=== PATIENT | female | born 1965 | race Caucasian/White ===

== ENCOUNTER → 2020-10-16 09:52 | Outpatient (BNVA) | payer OTHER, SELFPAY | PROVIDERS: PCP Nurse Practitioner Family; Visit Provider Physician Assistant ==

== ENCOUNTER 2020-10-18 09:22 | Outpatient (REF) | payer OTHER, SELFPAY ==
[2020-10-18 10:22] LABS: MANUAL DIFF FLAG NO
[2020-10-18 10:31] LABS: Basophils Absolute Auto 0.1 X10*3/uL (0.0-0.2); Basophils Percent Auto 0.9 % (0-2); Eosinophils Absolute Auto 0.4 X10*3/uL (0.0-0.4); Eosinophils Percent Auto 6.2 % (0-4); Hematocrit 40.6 % (37-47); Hemoglobin 13.1 g/dl (12.0-16.0); Imm Gran Abs Auto 0.02 X10*3/uL (0.00-0.03); Imm Gran Pct Auto 0.4 % (0.0-0.4); Lymphocytes Absolute Auto 1.8 X10*3/uL (1.2-4.9); Lymphocytes Percent Auto 32.4 % (20-40); Mean Corpuscular HGB Conc 32.3 g/dl (31.0-35.0); Mean Corpuscular Hemoglobin 27.7 pg (27.0-33.0); Mean Corpuscular Volume 85.8 fL (80-98); Mean Platelet Volume 9.7 fL (9.4-12.3); Monocytes Absolute Auto 0.5 X10*3/uL (0.1-1.2); Monocytes Percent Auto 9.4 % (2-11); Neutrophils Absolute Auto 2.9 X10*3/uL (2.0-8.3); Neutrophils Percent Auto 50.7 % (45-73); Platelet Count 334 X10*3/uL (160-400); Red Blood Count 4.73 X10*6/uL (4.20-5.50); Red Cell Distribution Width 13.5 % (11.0-16.0); White Blood Count 5.7 X10*3/uL (4.8-10.8)
[2020-10-18 10:55] LABS: Alanine Aminotransferase 42 U/L (0-31); Albumin Level 3.7 g/dL (3.5-5.0); Alkaline Phosphatase 88 U/L (39-117); Anion Gap 12 (12-20); Aspartate Amino Transferase 40 U/L (5-31); Bilirubin Total 0.4 mg/dL (0.0-1.0); Blood Urea Nitrogen 16 mg/dL (9-16); Calcium 8.6 mg/dL (8.4-10.2); Carbon Dioxide 28 mmol/L (22-29); Chloride 103 mmol/L (96-108); Estimated Glomerular Filt Rate 53; Glucose Random 91 mg/dL (60-115); Potassium 4.2 mmol/L (3.3-5.1); Sodium 139 mmol/L (135-145); Total Protein 6.8 g/dL (6.5-8.0)
[2020-10-18 11:38] LABS: Erythrocyte Sedimentation Rate 26 MM/HR (0-20)
[2020-10-21 13:52] LABS: Transglutaminase IgA 1 U/mL
[2020-10-25 14:32] LABS: Endomysial IgA Antibody Negative (Negative)
== END 2020-10-18 09:23 | disposition home or self-care (01) ==
LOC: HO.LAB 09:22
PROVIDERS: PCP Internal Medicine; Visit Provider Physician Assistant
DX: R10.11 Right upper quadrant pain (principal); R74.01 Elevation of levels of liver transaminase levels; R19.7 Diarrhea, unspecified; K59.09 Other constipation
CPT/HCPCS: 36415; 80053; 83516; 84443; 85025; 85652; 86255; 86256

== ENCOUNTER 2020-10-28 09:04 | Outpatient (REF) | payer OTHER, SELFPAY ==
[2020-10-28 09:18] LABS: COVID-19 Test Negative (Negative)
== END 2020-10-28 09:05 | disposition home or self-care (01) ==
LOC: HO.EMPCOV 09:04
PROVIDERS: Visit Provider Internal Medicine
DX: Z20.822 Contact with and (suspected) exposure to COVID-19 (principal)
CPT/HCPCS: 36415; 87635; C9803

== ENCOUNTER 2020-11-18 09:59 | Day surgery (SDC) | payer OTHER, SELFPAY ==
[2020-11-12 20:04] VITALS: BMI 32.3
--- NOTE | 2020-11-18 10:26 | HO.ANESPROP2 ---
[facility] Active Problems Active Problems: All Active Problems (Updated 11/12/20 @ 20:03 by Paige Diaz RN) Pre-employment health screening examination (Acute) Diarrhea (Acute) Dysuria (Acute) History of colon polyps (Acute) Past Medical History Medical History Anxiety Asthma, allergic Borderline hypertension Depression Elevated cholesterol History of colon polyps PTSD (post-traumatic stress disorder) Surgical History Surgical History H/O: History of colonoscopy Hx laparoscopic cholecystectomy (~2005) Social History Social History Household Members: Spouse and Children Alcohol intake: never Smoking Status: Never smoker Second Hand Smoke Exposure: No Use of substances other than those prescribed or required for medical reasons: No Advance Directives: No Advance Directives Information Provided: No Advance Directives on File: No Recently lost weight without trying: No Current occupational status: employed and unemployed Current occupation: [employer] Meds Allergies Allergy/AdvReac Type Severity Reaction Status Date / Time ciprofloxacin [From CIPRO] Allergy Unknown RASH Verified 10/16/20 09:52 Sulfa (Sulfonamide Allergy Unknown RASH Verified 10/16/20 09:52 Antibiotics) [SULFA (SULFONAMIDE ANTIBIOTICS)] Home Medications Medication Instructions Recorded Confirmed Last Taken Type aripiprazole 10 mg tablet 10 mg PO DAILY 10/16/20 11/18/20 11/18/20 00:10 History 10 mg bupropion HCl 300 mg 24 hr tablet, 300 mg PO QAM 10/16/20 11/18/20 11/18/20 00:00 History extended release 300 mg fluticasone 100 mcg-salmeterol 50 1 inh INHALATION BID 10/16/20 11/18/20 11/18/20 00:05 History mcg/dose blistr powdr for 1 inhalation methylphenidate HCl 20 mg biphasic 20 mg PO DAILY 10/16/20 11/13/20 Unknown History 30-70 capsule,extended release venlafaxine 150 mg 150 mg PO DAILY 10/16/20 11/18/20 11/18/20 00:05 History capsule,extended release 24 hr 150 mg Exam Exam Date and Time: November 18, 2020 102 Height,Weight and Vital Signs: Height 5 ft 6 in Weight 90.718 kg Airway Mallampati Class: II TM Dist: >3cm Neck ROM: Full Loose/Missing/Broken Teeth: No Heart: RRR Other: CTA Assessment and Plan Assessment Anesthesia Assessment: Anesthesia Plan Discussed and Chart Reviewed Final Anesthetic Review NPO: Yes ASA Class: II Final Preanesthetic Review: Meds/Allgs Chart Reviewed and Consent Obtained/Reviewed Patient Risk: Low Procedure Risk: Low Anesthetic Plan Anesthetic Plan: MAC: Disposition: Standard PACU
[2020-11-18 10:35] VITALS: BP 129/73; PULSE 95; RESP 20; TEMP 36.2; O2SAT 97
--- NOTE | 2020-11-18 11:04 | W.PM.OPN ---
Operative Note Operative Note Date of Service: 11/22/20 Narrative: Pre-op diagnosis: Colon cancer screening, history of colon polyps, chronic diarrhea Post-op diagnosis: other (Colon polyps, diverticulosis, hemorrhoids) Procedure: COLONOSCOPY TO CECUM WITH BIOPSY AND SNARE POLYPECTOMY Consent: Indications for the procedure and potential complications of bleeding, perforation, reaction to medications and missed diagnosis were discussed with the patient and informed consent was obtained. Instrument: Olympus PCF H 190 L variable stiffness pediatric colonoscope Monitoring: Vital signs and clinical assessment, intermittent blood pressure monitoring, continuous EKG monitoring, Pulse oximetry and Carbon Dioxide monitoring were done throughout the procedure. Colon withdrawl time was 25 minutes. Procedure: The patient was placed in the left lateral decubitis position and pre-procedure medications were administered. After a digital rectal examination of the ano-rectum, the video colonoscope was inserted into the rectum and advanced through the colon to the cecum. The colonoscope was slowly withdrawn in a retrograde panoramic fashion and the colon mucosa was carefully examined including a retroflexed view of the rectum. Findings and interventions are described below. Procedure Difficulty: Without difficulty Findings: Terminal Ileum: The distal 5 cm was examined and appeared normal. Cecum: Normal Ascending Colon: Normal. Random biopsies were obtained from the right colon. Transverse Colon: Normal Descending Colon: Normal Sigmoid Colon: A 2-3 mm diminutive appearing polyp removed with a cold bx. A 10-12 mm sessile polyp removed with a hot snare. Random biopsies were obtained from the left colon. Moderate diverticulosis Rectum: Normal Ano-rectum: Moderate internal hemorrhoids Colon preparation: Excellent Impression and Post Procedure Diagnosis: Colonoscopy Findings: Two polyps removed. Random biopsies were obtained from the right and left colon. Moderate diverticulosis seen in the sigmoid colon Moderate hemorrhoids on retroflexed exam. Plan: Await pathology results Patient has an appointment on 11/25/20 in the GI Clinic with KATYA Hirsch . Repeat Colonoscopy interval based on path results - in 3-5 years if polyps are adenomatous and 10 years if polyps are hyperplastic. Above findings were reviewed with the patient and colon polyps and diverticulosis handouts were given in the discharge area Surgeon: Anthony Amador MD Anesthesia: MAC (Dr. Valentin) Estimated blood loss (mL): 0 Pathology: other (A- RANDOM RIGHT COLON BIOPSIES B- RANDOM LEFT COLON BIOPSIES C. SIGMOID POLYPS) Condition: stable Disposition: PACU
--- NOTE | 2020-11-18 11:04 | MHC.SHP ---
Pre-Procedural Eval Section A The patient is an INPATIENT: No The History & Physical has been completed within 30 days and I have reviewed it.: No Section B Chief Complaint: Hx of Colon Polyps Details of Present Illness: A 55-year-old female referred with diarrhea, intermittent. Patient states chronic common had severe she has had episodes of incontinence. She has been taking Imodium, however had diarrhea despite. She admits to stress-started a new job, she had been unemployed. She takes probiotics as well as fiber She had a colonoscopy 5 years ago- Relevant Family History (Specify if Yes): Yes Relevant Social History: None Present Medications: see Short Stay Collaborative assessment Medical History: Significant History (Anxiety, asthma, depression, history of colon polyps) History of Previous Operations: Relevant previous surgery/procedure and date(s) (Status post cholecystectomy, status post C section) Allergies: Allergies Allergy/AdvReac Type Severity Reaction Status Date / Time ciprofloxacin [From CIPRO] Allergy Unknown RASH Verified 10/16/20 09:52 Sulfa (Sulfonamide Allergy Unknown RASH Verified 10/16/20 09:52 Antibiotics) [SULFA (SULFONAMIDE ANTIBIOTICS)] Review of Systems Sugical H&P ROS: Negative: Cardiovascular, Respiratory and Neurological and Yes, Specify: Gastrointestinal (Chronic diarrhea) Exam Surgical H&P Exam: Normal: Heart, Normal: Lungs, Normal: Extremities and Normal: Abdomen Plan Diagnosis/Plan: Unchanged I have reviewed the history and physical and performed a pertinent physical examination on my patient. No changes have occurred unless specified.
[2020-11-18] MEDS: Lactated Ringers 1,000 ML 50 ML IV (11:05)
[2020-11-18 11:54] VITALS: BP 124/70; PULSE 84; RESP 18; TEMP 36.7; O2SAT 99
[2020-11-18 12:09] VITALS: PULSE 69; RESP 18; O2SAT 96
[2020-11-18 12:23] VITALS: BP 120/58; PULSE 74; RESP 18; TEMP 36.7; O2SAT 97
== END 2020-11-18 13:33 | disposition home or self-care (01) ==
PROVIDERS: PCP Internal Medicine; Visit Provider Internal Medicine Gastroenterology
PROC: 0DJD8ZZ Inspection of Lower Intestinal Tract, Via Natural or Artificial Opening Endoscopic (ICD-10-PCS; CPT 45378; principal; 2020-11-18 11:00)
DX: Z12.11 Encounter for screening for malignant neoplasm of colon (principal); Z86.010 Personal history of colon polyps; D12.5 Benign neoplasm of sigmoid colon; K52.831 Collagenous colitis; K57.30 Diverticulosis of large intestine without perforation or abscess without bleeding; K64.8 Other hemorrhoids; J45.909 Unspecified asthma, uncomplicated; R03.0 Elevated blood-pressure reading, without diagnosis of hypertension; F32.9 Major depressive disorder, single episode, unspecified; F43.10 Post-traumatic stress disorder, unspecified; Z79.51 Long term (current) use of inhaled steroids; Z79.899 Other long term (current) drug therapy; Z90.49 Acquired absence of other specified parts of digestive tract; Z88.1 Allergy status to other antibiotic agents; Z88.2 Allergy status to sulfonamides
CPT/HCPCS: 45385; 45380; 88305

== ENCOUNTER → 2020-11-25 08:40 | Outpatient (BNVA) | payer OTHER, SELFPAY | PROVIDERS: PCP Internal Medicine; Visit Provider Physician Assistant ==

== ENCOUNTER → 2021-01-22 07:52 | Outpatient (BNVA) | payer OTHER, SELFPAY | PROVIDERS: Visit Provider Physician Assistant ==

== ENCOUNTER 2021-07-15 15:59 | Outpatient (REF) | payer OTHER, SELFPAY ==
--- NOTE | ~2021-07-15 | MM_ITS ---
EXAMINATION: MM SCREENING DIGITAL BREAST TOMOSYNTHESIS, BILATERAL CLINICAL INFORMATION: Screening. Asymptomatic. The lifetime risk of breast cancer based on the Tyrer-Cuzick Model is 15%. COMPARISON: Mammography: April 22, 2017 and studies dating back to February 13, 2015 TECHNIQUE: Digital breast tomosynthesis is performed in both the craniocaudal and mediolateral oblique views along with computer-aided detection (CAD). Synthesized 2D images are generated from the tomosynthesis. FINDINGS: There are scattered areas of fibroglandular density (ACR BI-RADS breast composition Category b). There are no significant masses, abnormal calcifications, or other abnormalities. MM/MM tomosynthesis screening BI IMPRESSION: There are no significant changes from prior study. ASSESSMENT: BI-RADS 1: Negative RECOMMENDATION: Routine annual mammography screening. This patient's information was entered into a reminder system with a target due date for their next mammogram.
== END 2021-07-15 16:00 | disposition home or self-care (01) ==
LOC: HO.MAMMO 15:59
PROVIDERS: Visit Provider Internal Medicine
DX: Z12.31 Encounter for screening mammogram for malignant neoplasm of breast (principal)
CPT/HCPCS: 77063; 77067

== ENCOUNTER 2021-08-05 09:41 | Day surgery (SDC) | payer OTHER, SELFPAY ==
[2021-07-30 10:35] VITALS: BMI 32.3
--- NOTE | 2021-08-04 12:59 | P.CONAN_ITS ---
Documented by User: Anjali Márquez NP 08/04/21 13:00 HPI - Anesthesia Eval Consult details Narrative: 56yo F for Upper Endoscopy s/p colo with MAC 11/2020 [facility] Active Problems Active Problems: All Active Problems (Updated 07/30/21 @ 10:33 by Dina Frank RN) Pre-employment health screening examination (Acute) Diarrhea (Acute) Dysuria (Acute) Collagenous colitis (Acute) Tubular adenoma of colon (Acute) History of colon polyps (Acute) Past Medical History Medical History Anxiety Asthma, allergic Borderline hypertension Collagenous colitis Depression Elevated cholesterol History of colon polyps PTSD (post-traumatic stress disorder) Surgical History Surgical History H/O: History of colonoscopy Hx laparoscopic cholecystectomy (~2005) Social History Social History Household Members: Spouse and Children Household Members Other:: son 15 Alcohol intake: never Patient Tobacco Use Status: Never used Tobacco Second Hand Smoke Exposure: No Advance Directives: No Advance Directives Information Provided: Yes Advance Directives on File: No Current occupational status: employed and unemployed Current occupation: [employer] Meds Allergies Allergy/AdvReac Type Severity Reaction Status Date / Time ciprofloxacin [From CIPRO] Allergy Intermediate RASH Verified 08/05/21 10:11 Sulfa (Sulfonamide Allergy Intermediate RASH Verified 08/05/21 10:11 Antibiotics) [SULFA (SULFONAMIDE ANTIBIOTICS)] Home Medications Medication Instructions Recorded Confirmed Last Taken Type aripiprazole 10 mg tablet (Abilify) 10 mg PO DAILY 10/16/20 01/22/21 11/18/20 00:10 History 10 mg bupropion HCl 300 mg 24 hr tablet, 300 mg PO QAM 10/16/20 01/22/21 11/18/20 00:00 History extended release 300 mg fluticasone 100 mcg-salmeterol 50 1 inh INHALATION BID 10/16/20 01/22/21 11/18/20 00:05 History mcg/dose blistr powdr for 1 inhalation (Wixela Inhub) methylphenidate HCl 20 mg biphasic 20 mg PO DAILY 10/16/20 01/22/21 Unknown History 30-70 capsule,extended release venlafaxine 150 mg 150 mg PO DAILY 10/16/20 01/22/21 11/18/20 00:05 History capsule,extended release 24 hr 150 mg (Effexor XR) Exam Exam Date and Time: August 04, 2021 1259 Height,Weight and Vital Signs: Height 5 ft 6 in Weight 90.718 kg Assessment and Plan Assessment Anesthesia Assessment: Chart Reviewed Documented by User: Clifford Gutierrez MD 08/05/21 11:23 [facility] Past Medical History Medical History Anxiety Asthma, allergic Borderline hypertension Collagenous colitis Depression Elevated cholesterol History of colon polyps PTSD (post-traumatic stress disorder) Family History Family history of problems with anesthesia: No Surgical History Surgical History H/O: History of colonoscopy Hx laparoscopic cholecystectomy (~2005) History of Problems with Anesthesia: No Social History Social History Household Members: Spouse and Children Household Members Other:: son 15 Alcohol intake: never Patient Tobacco Use Status: Never used Tobacco Second Hand Smoke Exposure: No Advance Directives: No Advance Directives Information Provided: Yes Advance Directives on File: No Current occupational status: employed and unemployed [place] [employer] [place] Med[place] Allergies Allergy/AdvReac Type Severity Reaction Status Date / Time ciprofloxacin [From CIPRO] Allergy Intermediate RASH Verified 08/05/21 10:11 Sulfa (Sulfonamide Allergy Intermediate RASH Verified 08/05/21 10:11 Antibiotics) [SULFA (SULFONAMIDE ANTIBIOTICS)] Home Medications Medication Instructions Recorded Confirmed Last Taken Type aripiprazole 10 mg tablet (Abilify) 10 mg PO DAILY 10/16/20 01/22/21 11/18/20 00:10 History 10 mg bupropion HCl 300 mg 24 hr tablet, 300 mg PO QAM 10/16/20 01/22/21 11/18/20 00:00 History extended release 300 mg fluticasone 100 mcg-salmeterol 50 1 inh INHALATION BID 10/16/20 01/22/21 11/18/20 00:05 History mcg/dose blistr powdr for 1 inhalation (Wixela Inhub) methylphenidate HCl 20 mg biphasic 20 mg PO DAILY 10/16/20 01/22/21 Unknown History 30-70 capsule,extended release venlafaxine 150 mg 150 mg PO DAILY 10/16/20 01/22/21 11/18/20 00:05 History capsule,extended release 24 hr 150 mg (Effexor XR) Exam Airway Mallampati Class: II TM Dist: >3cm Neck ROM: Full Loose/Missing/Broken Teeth: No Assessment and Plan Assessment Anesthesia Assessment: Anesthesia Plan Discussed Final Anesthetic Review Family History of Problems with Anesthesia: No History of Problems with Anesthesia: No NPO: Yes ASA Class: II Final Preanesthetic Review: No Changes in Pt Med Stat, Meds/Allgs Chart Reviewed, Consent Obtained/Reviewed and Anes Risks/Benef Reviewed Patient Risk: Low Procedure Risk: Low Anesthetic Plan Anesthetic Plan: MAC: Disposition: Standard PACU
[2021-08-05 10:12] VITALS: BP 168/96; PULSE 73; RESP 20; TEMP 37.2; O2SAT 98
[2021-08-05] MEDS: Lactated Ringers 1,000 ML 100 ML IVCONT (10:31)
--- NOTE | 2021-08-05 11:22 | P.HPSUR_ITS ---
Pre-Procedural Eval Section A Date of Service: 08/05/21 The patient is an INPATIENT: No The History & Physical has been completed within 30 days and I have reviewed it.: No Section B Chief Complaint: GERD, Dysphagia Details of Present Illness: GERD, Dysphagia Relevant Family History (Specify if Yes): No Relevant Social History: None Present Medications: see Short Stay Collaborative assessment Medical History: Significant History (Anxiety Asthma, allergic Borderline hypertension Depression Elevated cholesterol History of colon polyps PTSD (post- traumatic stress disorder)) History of Previous Operations: Relevant previous surgery/procedure and date(s) (H/O: History of colonoscopy Hx laparoscopic cholecystectomy (~2005)) Allergies: Allergies Allergy/AdvReac Type Severity Reaction Status Date / Time ciprofloxacin [From CIPRO] Allergy Intermediate RASH Verified 08/05/21 10:11 Sulfa (Sulfonamide Allergy Intermediate RASH Verified 08/05/21 10:11 Antibiotics) [SULFA (SULFONAMIDE ANTIBIOTICS)] Review of Systems Sugical H&P ROS: Negative: Constitution, Cardiovascular and Respiratory and Yes, Specify: Gastrointestinal (dysphagia) Exam Surgical H&P Exam: Normal: Heart, Normal: Lungs, Normal: Extremities and Normal: Abdomen Plan Diagnosis/Plan: Unchanged I have reviewed the history and physical and performed a pertinent physical examination on my patient. No changes have occurred unless specified.
--- NOTE | 2021-08-05 11:24 | W.PM.OPN ---
Operative Note Operative Note Date of Service: 08/05/21 Narrative: Pre-op diagnosis:?GERD, dysphagia Post-op diagnosis:?same Procedure:? FLEXIBLE TRANSORAL UPPER GASTROINTESTINAL ENDOSCOPY WITH BIOPSIES AND ESOPHAGEAL BALLOON DILATION Consent:?Indications for the procedure and potential complications of bleeding, perforation, reaction to medications and missed diagnosis were discussed with the patient and informed consent was obtained. Instrument:?Olympus GIF H 190 mid size upper endoscope Monitoring: Vital signs and clinical assessment, continuous EKG monitoring, Pulse oximetry, Carbon Dioxide monitoring and blood pressure monitoring were done throughout the procedure. Procedure:?The patient was placed in the left lateral decubitis position and pre-procedure medications were administered and a bite block was placed. The endoscope was inserted into the mouth and advanced under direct vision to the third part of duodenum. A careful inspection was made as the upper endoscope was withdrawn including a retroflexed examination of the proximal stomach; Findings and interventions are described below. Findings: Larynx:? Erythema and edema of arytenoid cartilages Esophagus: GE junction at 38 cms. No esophagitis or Weiner's. Biopsies obtained from proximal esophagus to check for EOE. Empiric balloon dilation was performed with 19 mm CRE balloon x 60 seconds Stomach: Mild gastric erythema. Biopsies were obtained. Grade 2 flap valve on retroflexed examination of the cardia. Duodenum: Normal bulb and descending duodenum Intervention: Biopsies and balloon dilation as noted above Impression and Post Procedure Diagnosis: Endoscopy Findings: LARYNX: Laryngeal changes suggestive of LPRD ESOPHAGUS: GE junction at 38 cms. No esophagitis or Weiner's. Biopsies obtained from proximal esophagus to check for EOE. Empiric balloon dilation was performed with 19 mm CRE balloon x 60 seconds STOMACH: Mild gastritis No clear source found for dysphagia - ? achalasia, esophageal spasm due to GERD or EOE Plan: Await pathology results Patient has an appointment on 08/19/21 in the GI Clinic with KATYA Hirsch . Schedule a barium swallow for further evaluation. Start Omeprazole 20 mg twice daily Above findings were reviewed with the patient and GERD handouts were given in the discharge area. Surgeon:?Anthony Amador MD Anesthesia:?MAC (Angela Stevenson CRNA) Was an Millinery Blocker used for this Procedure?:?Yes Millinery Blocker:?Kelly Haro Estimated blood loss (mL):?0 Pathology:?other (A: GASTRIC BXS R/O H.PYLORI? B: BXS PROXIMAL ESOPHAGUS R/O EOE) Condition:?stable Disposition:?PACU
[2021-08-05 12:01] VITALS: BP 141/74; PULSE 75; RESP 16; TEMP 36.6; O2SAT 100
[2021-08-05 12:16] VITALS: BP 158/69; PULSE 79; RESP 16; TEMP 37.1; O2SAT 97
== END 2021-08-05 13:13 | disposition home or self-care (01) ==
PROVIDERS: PCP Internal Medicine; Visit Provider Internal Medicine Gastroenterology
PROC: 0DJ08ZZ Inspection of Upper Intestinal Tract, Via Natural or Artificial Opening Endoscopic (ICD-10-PCS; CPT 43235; principal; 2021-08-05 10:50)
DX: K21.9 Gastro-esophageal reflux disease without esophagitis (principal); R13.10 Dysphagia, unspecified; K29.50 Unspecified chronic gastritis without bleeding; K52.831 Collagenous colitis; J45.909 Unspecified asthma, uncomplicated; R03.0 Elevated blood-pressure reading, without diagnosis of hypertension; F43.10 Post-traumatic stress disorder, unspecified; E78.00 Pure hypercholesterolemia, unspecified; F41.8 Other specified anxiety disorders; Z79.51 Long term (current) use of inhaled steroids; Z79.899 Other long term (current) drug therapy
CPT/HCPCS: 43249; 43239; 88305; 88342; C1726; J3010

== ENCOUNTER 2022-01-07 08:19 | Outpatient (REF) | payer OTHER, SELFPAY ==
--- NOTE | ~2022-01-07 | FL_ITS ---
EXAMINATION: FL BARIUM SWALLOW CLINICAL INFORMATION: Dysphagia in pharyngoesophageal phase. COMPARISON: None TECHNIQUE: Barium swallow examination is performed using fluoroscopic evaluation in addition to multiple fluoroscopic spot views. The patient is imaged both upright and prone and using both thick and thin sulfate along with effervescent granules. Fluoroscopy time: 3.1 minutes DAP: 58.570 Gy-cm2 Images: 80 FINDINGS: Following oral administration of thick barium in upright view, there is normal propagation of bolus from the oral cavity into the pharynx with delayed transit from the pharynx into the thoracic esophagus secondary to significantly thickened and enlarged cricoesophageal muscle. This results in mild ballooning of the pharyngeal space with moderate retention in the piriform sinuses and mild retention in the valleculae. It does subsequently clear with dry swallowing. The proximal, mid and distal esophagus is normal. Occasional tertiary peristalsis was seen in the distal esophagus but no obstruction. On oral administration of thick barium, there is normal oral mastication with very slow propagation of food from the posterior oropharynx through the pharynx into the esophagus with moderate retention in the valleculae and the piriform sinuses. Again, a prominent cricoesophageal sphincter is noted. There is normal transition of solid food through the esophagus into the stomach. On oral administration of barium tablet, there is spontaneous passage of the tablet from the oral cavity through the pharynx, esophagus into stomach with oral administration of lots of fluid. FL/FL barium swallow IMPRESSION: Prominent moderate thickening of cricoesophageal sphincter moderately obstructing thick barium and barium-coated solid food during the exam. There is moderate barium/food retention in the piriform sinuses and mild retention in the valleculae which clears with subsequent 3 or 4 dry swallows and oral administration of water. Occasional tertiary peristalsis in the distal esophagus but no obstruction or narrowing. The GE junction is normal. Recommend endoscopy for further evaluation and dilation if needed.
== END 2022-01-07 08:20 | disposition home or self-care (01) ==
LOC: HO.XRAY 08:19
PROVIDERS: PCP Internal Medicine; Visit Provider Internal Medicine Gastroenterology
DX: R13.14 Dysphagia, pharyngoesophageal phase (principal)
CPT/HCPCS: 74220

== ENCOUNTER 2022-02-17 14:56 | Outpatient (REF) | payer OTHER, SELFPAY ==
--- NOTE | ~2022-02-17 | XR_ITS ---
EXAMINATION: XR HIP, LEFT CLINICAL INFORMATION: Pain. COMPARISON: None TECHNIQUE: Three views of the left hip. FINDINGS: No acute fracture or malalignment. The femoral heads are well-seated in their respective acetabula. 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 Symmetric SI joints. Retained radiopaque material within multiple diverticuli in the sigmoid colon. XR/XR hip LT min 2V IMPRESSION: No acute fracture or malalignment. Mild degenerative osteoarthritis.
--- NOTE | ~2022-02-17 | XR_ITS ---
EXAMINATION: XR LUMBOSACRAL SPINE CLINICAL INFORMATION: Pain. COMPARISON: None TECHNIQUE: Three views of the lumbosacral spine. FINDINGS: No acute compression deformity. There is a 0.5 cm of retrolisthesis L5 on S1, otherwise anatomic alignment. There is moderate to severe disc space narrowing and facet arthropathy at L5-S1. Prominent anterior osteophytes are identified at L3 and L4. Prevertebral soft tissues are within normal limits. Right upper quadrant surgical clips. Retained radiopaque material within diverticuli in the sigmoid colon. XR/XR lumbar spine 2-3V IMPRESSION: No acute compression deformity. Approximately 0.5 cm of retrolisthesis of L5 on S1 with moderate to severe disc space narrowing and facet arthropathy at this level.
== END 2022-02-17 14:57 | disposition home or self-care (01) ==
LOC: HO.XRAY 14:56
PROVIDERS: PCP Internal Medicine; Visit Provider Internal Medicine
DX: M54.42 Lumbago with sciatica, left side (principal); R10.32 Left lower quadrant pain
CPT/HCPCS: 72100; 73502

== ENCOUNTER 2022-04-23 13:16 | Day surgery (SDC) | payer OTHER, SELFPAY ==
--- NOTE | 2022-04-22 13:18 | P.CONAN_ITS ---
Documented by User: Anjali Márquez NP 04/22/22 13:18 HPI - Anesthesia Eval Consult details Narrative: 56yo F for Upper Endoscopy with Balloon Dilitation s/p EGD 07/2021 with MAC PMFSH Active Problems Active Problems: All Active Problems (Updated 03/11/22 @ 12:23 by Noris Blake PA-C) Vaginitis (Acute) Dysphagia, pharyngoesophageal phase (Acute) Pre-employment health screening examination (Acute) Diarrhea (Acute) Dysuria (Acute) Collagenous colitis (Acute) Tubular adenoma of colon (Acute) History of colon polyps (Acute) Past Medical History Medical History Anxiety Asthma, allergic Borderline hypertension Collagenous colitis Depression Elevated cholesterol History of colon polyps PTSD (post-traumatic stress disorder) Family History Family history of problems with anesthesia: No Surgical History Surgical History H/O: History of colonoscopy Hx laparoscopic cholecystectomy (~2005) History of Problems with Anesthesia: No Social History Social History Household Members: Spouse and Children Household Members Other:: son 15 Alcohol intake: never Patient Tobacco Use Status: Never used Tobacco Second Hand Smoke Exposure: No Use of substances other than those prescribed or required for medical reasons: No Are you DNR?: No Advance Directives: No Advance Directives Information Provided: Yes Current occupational status: employed and unemployed Current occupation: [employer] [place] Meds Allergies Allergy/AdvReac Type Severity Reaction Status Date / Time ciprofloxacin [From CIPRO] Allergy Intermediate RASH Verified 02/19/22 08:32 Sulfa (Sulfonamide Allergy Intermediate RASH Verified 02/19/22 08:32 Antibiotics) [SULFA (SULFONAMIDE ANTIBIOTICS)] Home Medications Medication Instructions Recorded Confirmed Last Taken Type bupropion HCl 300 mg 24 hr tablet, 300 mg PO QAM 10/16/20 02/19/22 11/18/20 00:00 History extended release 300 mg fluticasone 100 mcg-salmeterol 50 1 inh inhalation BID 10/16/20 02/19/22 11/18/20 00:05 History mcg/dose blistr powdr for 1 inhalation (Wixela Inhub) methylphenidate HCl 20 mg biphasic 20 mg PO DAILY 10/16/20 02/19/22 Unknown History 30-70 capsule,extended release venlafaxine 150 mg 150 mg PO DAILY 10/16/20 02/19/22 11/18/20 00:05 History capsule,extended release 24 hr 150 mg (Effexor XR) Exam Exam Date and Time: April 22, 2022 1318 Assessment and Plan Assessment Anesthesia Assessment: Chart Reviewed Final Anesthetic Review Family History of Problems with Anesthesia: No History of Problems with Anesthesia: No Documented by User: Miguel Ángel Lara MD 04/23/22 14:33 [facility] [place] Past Medical History Medical History Anxiety Asthma, allergic Borderline hypertension Collagenous colitis Depression Elevated cholesterol History of colon polyps PTSD (post-traumatic stress disorder) Surgical History Surgical History H/O: History of colonoscopy Hx laparoscopic cholecystectomy (~2005) Social History Social History Household Members: Spouse and Children Household Members Other:: son 15 Alcohol intake: never Patient Tobacco Use Status: Never used Tobacco Second Hand Smoke Exposure: No Use of substances other than those prescribed or required for medical reasons: No Are you DNR?: No Advance Directives: No Advance Directives Information Provided: Yes Current occupational status: employed and unemployed Current occupation: [employer] [place] Meds Allergies Allergy/AdvReac Type Severity Reaction Status Date / Time ciprofloxacin [From CIPRO] Allergy Intermediate RASH Verified 02/19/22 08:32 Sulfa (Sulfonamide Allergy Intermediate RASH Verified 02/19/22 08:32 Antibiotics) [SULFA (SULFONAMIDE ANTIBIOTICS)] Home Medications Medication Instructions Recorded Confirmed Last Taken Type bupropion HCl 300 mg 24 hr tablet, 300 mg PO QAM 10/16/20 02/19/22 11/18/20 00:00 History extended release 300 mg fluticasone 100 mcg-salmeterol 50 1 inh inhalation BID 10/16/20 02/19/22 11/18/20 00:05 History mcg/dose blistr powdr for 1 inhalation (Wixela Inhub) methylphenidate HCl 20 mg biphasic 20 mg PO DAILY 10/16/20 02/19/22 Unknown History 30-70 capsule,extended release venlafaxine 150 mg 150 mg PO DAILY 10/16/20 02/19/22 11/18/20 00:05 History capsule,extended release 24 hr 150 mg (Effexor XR) Exam Airway Mallampati Class: II TM Dist: >3cm Neck ROM: Full Assessment and Plan Assessment Anesthesia Assessment: Anesthesia Plan Discussed Final Anesthetic Review NPO: Yes ASA Class: II Final Preanesthetic Review: No Changes in Pt Med Stat, Meds/Allgs Chart Reviewed, Consent Obtained/Reviewed and Anes Risks/Benef Reviewed Patient Risk: Low Procedure Risk: Low Anesthetic Plan Anesthetic Plan: MAC: Disposition: Standard PACU
[2022-04-23] VITALS (10 sets, daily range): BP systolic 142–167; BP diastolic 72–98; PULSE 69–89; RESP 16–20; TEMP 36.5–37.1; O2SAT 94–98; BMI 37.1
--- NOTE | 2022-04-23 14:39 | P.HPSUR_ITS ---
Pre-Procedural Eval Section A Date of Service: 04/23/22 Section B Chief Complaint: dysphagia Relevant Family History (Specify if Yes): No Relevant Social History: None Present Medications: see Short Stay Collaborative assessment Medical History: Significant History (Anxiety Asthma, allergic Borderline hypertension Collagenous colitis Depression Elevated cholesterol History of colon polyps PTSD (post-traumatic stress disorder)) History of Previous Operations: Relevant previous surgery/procedure and date(s) (H/O: History of colonoscopy Hx laparoscopic cholecystectomy (~2005)) Allergies: Allergies Allergy/AdvReac Type Severity Reaction Status Date / Time ciprofloxacin [From CIPRO] Allergy Intermediate RASH Verified 02/19/22 08:32 Sulfa (Sulfonamide Allergy Intermediate RASH Verified 02/19/22 08:32 Antibiotics) [SULFA (SULFONAMIDE ANTIBIOTICS)] Review of Systems Sugical H&P ROS: Negative: Constitution, Cardiovascular, Respiratory, Neurological, Psychiatric, Hem-Onc, Allergic/Immunologic, Gastrointestinal, Genitourinary, Musculoskeletal, Integumentary, Endocrine and Eyes/Ears/Nose/Throat Exam Surgical H&P Exam: Normal: HEENT, Normal: Heart, Normal: Lungs, Normal: Extre mities, Normal: Abdomen, Normal: Skin and Normal: Neurological Plan Diagnosis/Plan: Unchanged I have reviewed the history and physical and performed a pertinent physical examination on my patient. No changes have occurred unless specified. EGD with dilation for dysphagia, imaging with prominent cricopharyngeal band.
--- NOTE | 2022-04-23 15:49 | P.OP_ITS ---
Operative Note Operative Note Date of Service: 04/23/22 Narrative: Procedure Description: EGD Indication: dysphagia Anesthesia: MAC FLEXIBLE TRANSORAL UPPER GASTROINTESTINAL ENDOSCOPY UPPER ENDOSCOPY Consent: Indications for the procedure and potential complications of bleeding, perforation, reaction to medications and missed diagnosis were discussed with the patient and informed consent was obtained. Instrument: Olympus GIF H 190 J mid size upper endoscope Monitoring: Vital signs and clinical assessment, continuous EKG monitoring, Pulse oximetry, Carbon Dioxide monitoring and blood pressure monitoring were done throughout the procedure. Procedure: The patient was placed in the left lateral decubitis position and pre-procedure medications were administered and a bite block was placed. The endoscope was inserted into the mouth and advanced under direct vision to the third part of duodenum. A careful inspection was made as the upper endoscope was withdrawn including a retroflexed examination of the proximal stomach; Findings and interventions are described below. Findings: Larynx:normal Esophagus: GE junction at 38 cm, diaphragm hiatus at 38 cm, bogginess and erythema at GEJ, bx taken, also from distal esophagus. Savary dilation done to 16 mm with superficial tear seen in proximal esophagus. Schatzki ring also noted. Stomach: Few fundic gland polyps noted.. Grade 2 flap valve on retroflexed e xamination of the cardia. Duodenum: Normal bulb and descending duodenum, Intervention: Biopsies as noted above, savary dilation Impression/Findings: schatzki ring esophagitis proximal stricture fundic gland polyps PLAN: clears today, soft diet tonight if tolerable, avoid very hot or very cold foods/liquids use magic mouthwash QID for next 5 days can use tylenol for pain relief avoid nsaids
[2022-04-23] MEDS: Acetaminophen 325 MG TABLET 975 MG PO (17:15)
[2022-04-23] MEDS: Mag&Al/Sim/Diphenhyd/Lidocaine 10 ML ORAL.SUSP PO (17:29)
[2022-04-23] MEDS: Acetaminophen Oral Liquid 650 MG/20.3 ML SOLUTION PO (17:35)
[2022-04-23] MEDS: fentaNYL citrate/PF 100 MCG/2 ML VIAL 25 MCG IVPUSH (18:01)
== END 2022-04-23 18:35 | disposition home or self-care (01) ==
PROVIDERS: PCP Internal Medicine; Visit Provider Internal Medicine Gastroenterology
PROC: (CPT 43248; principal; 2022-04-23 14:40)
DX: K22.2 Esophageal obstruction (principal); K20.80 Other esophagitis without bleeding; K31.7 Polyp of stomach and duodenum; K52.831 Collagenous colitis; J45.909 Unspecified asthma, uncomplicated; E78.00 Pure hypercholesterolemia, unspecified; R03.0 Elevated blood-pressure reading, without diagnosis of hypertension; F32.A Depression, unspecified; F43.10 Post-traumatic stress disorder, unspecified; Z90.49 Acquired absence of other specified parts of digestive tract; Z88.2 Allergy status to sulfonamides
CPT/HCPCS: 43248; 43239; 88305; C1769; J2250; J3010

== ENCOUNTER 2022-04-23 21:10 | Emergency (ER) | payer OTHER, SELFPAY ==
--- NOTE | ~2022-04-23 | CT_ITS ---
EXAMINATION: CT SOFT TISSUE NECK WITH CONTRAST CLINICAL INFORMATION: Neck pain status post upper endoscopy and esophageal dilatation COMPARISON: None TECHNIQUE: Following the intravenous administration of 85 mL of Omnipaque 350 intravenous contrast, helical imaging was performed in the axial plane with generation of coronal and sagittal reformatted images. This CT examination was performed using dose optimization techniques as appropriate, variously including the following: *Automated exposure control *Adjustment of mA and/or kV according to patient size (this includes techniques or standardized protocols for targeted exams where dose is matched to indication/reason for exam; i.e. extremities or head) *Use of iterative reconstruction technique DLP: 1225 mGy-cm FINDINGS: Imaging of the mid to upper neck is significantly motion degraded. No cervical adenopathy is identified. The parotid glands are homogeneous in attenuation. The submandibular glands are normal. No contour abnormality or pathologic enhancement is seen within the oral cavity or pharyngeal mucosal space. The laryngeal structures are normal. The parapharyngeal fat is preserved. There is atherosclerotic calcification of the carotid bifurcations and involving the right greater than left proximal cervical ICAs without evidence of high-grade stenosis. No extra mucosal soft tissue mass or fluid collection, or extraluminal gas is seen. No retropharyngeal fluid collection is seen. The thyroid gland is normal. The superior mediastinum is unremarkable. The lung apices are clear. Trace maxillary sinus mucosal thickening. The mastoid air cells are clear. The temporomandibular joints are normal. No periapical disease is identified. No acute osseous abnormality or suspicious lytic or sclerotic osseous lesion. There is reversal of usual cervical lordosis and multilevel spondylosis. The imaged portions of the brain parenchyma are unremarkable. CT/CT soft tissue neck w con IMPRESSION: Within the limitations of motion degradation, no abnormality of the soft tissues of the neck is identified
--- NOTE | ~2022-04-23 | CT_ITS ---
EXAMINATION: CT CHEST WITH CONTRAST CLINICAL INFORMATION: Chest pain status post upper endoscopy. COMPARISON: None TECHNIQUE: Multidetector volumetric CT imaging of the chest was obtained after the administration of 85 mL of Omnipaque 350 intravenous contrast without immediate adverse reactions. Axial MIP volume rendering provided. Sagittal and coronal reformatted images were obtained. This CT examination was performed using dose optimization techniques as appropriate, variously including the following: *Automated exposure control *Adjustment of mA and/or kV according to patient size (this includes techniques or standardized protocols for targeted exams where dose is matched to indication/reason for exam; i.e. extremities or head) *Use of iterative reconstruction technique DLP: 1225 mGy-cm in conjunction with the neck CT. FINDINGS: STATISTICS INTERN: Unremarkable. LUNGS: The central airways are patent. Minimal dependent linear atelectasis bilaterally. No dense consolidation. No pneumothorax. MEDIASTINUM: Normal heart size. Coronary artery calcifications. No pericardial effusion. No mediastinal lymphadenopathy. There is no pneumomediastinum. PLEURA: There is no pleural effusion. No pleural mass or thickening. AXILLA: No lymphadenopathy. UPPER ABDOMEN: Cholecystectomy. No acute abnormality. OSSEOUS STRUCTURES: No acute or suspicious osseous abnormality. Mild degenerative change in the spine. CT/CT chest w con IMPRESSION: No acute findings. No pneumomediastinum. No pneumothorax. No suspicious finding in the lungs. Fleischner guidelines were followed.
[2022-04-23 21:19] VITALS: BP 168/90; PULSE 75; RESP 18; TEMP 37.2; O2SAT 94; BMI 37.1
--- NOTE | 2022-04-23 21:33 | ECG_ITS ---
Test Reason : Chest pain Blood Pressure : / mmHG Vent. Rate : 068 BPM Atrial Rate : 068 BPM P-R Int : 156 ms QRS Dur : 090 ms QT Int : 408 ms P-R-T Axes : 039 -08 059 degrees QTc Int : 433 ms Normal sinus rhythm Normal ECG When compared with ECG of 11-APR-2018 09:34, No significant change was found Referred By: Nithin Goodman Electronically Signed By:SENAIT DUMONT
[2022-04-23 21:39] VITALS: BP 178/87; PULSE 76; TEMP 36.5; O2SAT 95
--- NOTE | 2022-04-23 21:40 | ED_ITS ---
HPI - General Adult General Chief complaint: Extremity Problem Stated complaint: f/u per docs request post out pt procedure Time Seen by Provider: 04/23/22 21:25 Source: patient, family and old records reviewed Mode of arrival: ambulatory Limitations: no limitations History of Present Illness HPI narrative: This is a 56-year-old female came in for evaluation of neck and chest pain after having upper endoscopy today. Patient is s/p upper endoscopy today for evaluation of dysphagia by Dr. Julieth Negrete. Earlier today patient overall after the procedure did not feel well but patient was discharged from recovery room, patient return to the ED for evaluation of severe neck and upper chest pain. Reviewing procedure note patient require dilation of the esophagus and the biopsy was taken. Related Data Home Medications Medication Instructions Recorded Confirmed bupropion HCl 300 mg 24 hr tablet, 300 mg PO QAM 10/16/20 02/19/22 extended release fluticasone 100 mcg-salmeterol 50 1 inh inhalation BID 10/16/20 02/19/22 mcg/dose blistr powdr for inhalation (Wixela Inhub) methylphenidate HCl 20 mg biphasic 20 mg PO DAILY 10/16/20 02/19/22 30-70 capsule,extended release venlafaxine 150 mg 150 mg PO DAILY 10/16/20 02/19/22 capsule,extended release 24 hr (Effexor XR) Previous Rx's Medication Instructions Recorded dicyclomine 10 mg capsule 20 mg PO BID #90 caps 11/04/20 fluconazole 150 mg tablet 150 mg PO DAILY 1 day #1 tab 11/07/21 (Diflucan) nitrofurantoin 100 mg PO BID 5 days #10 caps 11/07/21 monohydrate/macrocrystals 100 mg capsule (Macrobid) budesonide 9 mg tablet,delayed and 9 mg PO QAM 8 weeks #56 ea 12/02/21 extended release budesonide 6 mg capsule,extended 6 mg PO QAM taper 14 days #14 caps 03/10/22 release bismuth subsalicylate 262 mg 2 tab PO BID 30 days #120 tabs 04/03/22 chewable tablet budesonide 3 mg 9 mg PO DAILY Treatment taper 14 04/03/22 capsule,delayed,extended release days #42 ea mesalamine 800 mg tablet,delayed 1,600 mg PO TID 4 weeks #168 tabs 04/07/22 release (Asacol HD) Magic Mouthwash 10 ml PO QID #240 mL 04/23/22 Diphen/Lido/Antacid 1:1:1 240 mL suspension Magic Mouthwash 10 ml PO QID #240 mL 04/23/22 Diphen/Lido/Antacid 1:1:1 240 mL suspension pantoprazole 40 mg tablet,delayed 40 mg PO DAILY #60 tabs 04/23/22 release pantoprazole 40 mg tablet,delayed 40 mg PO DAILY #60 tabs 04/23/22 release Allergies Allergy/AdvReac Type Severity Reaction Status Date / Time ciprofloxacin [From CIPRO] Allergy Intermediate RASH Verified 02/19/22 08:32 Sulfa (Sulfonamide Allergy Intermediate RASH Verified 02/19/22 08:32 Antibiotics) [SULFA (SULFONAMIDE ANTIBIOTICS)] Review of Systems Review of Systems: All other systems are reviewed and are negative Constitutional: Reports as per HPI and Reports no additional constitutional complaints Eyes: Reports as per HPI and Reports no additional eye complaints Reports system reviewed and no additional complaints, except as documented Cardiovascular: Reports as per HPI and Reports no additional cardiovascular complaints Respiratory: Reports as per HPI and Reports no additional respiratory complaints Gastrointestinal: Reports as per HPI and Reports no additional gastrointestinal complaints Genitourinary: Reports no additional female genitourinary complaints Musculoskeletal: Reports no additional musculoskeletal complaints Skin/Breast: Reports system reviewed and no additional complaints, except as docu Psychiatric: Reports no additional psychiatric complaints Endocrine: Reports no additional endocrine complaints Hematologic/Lymphatic: Reports no additional hematologic/lymphatic complaints Allergic/Immunologic: Reports no additional allergic/immunologic complaints Reports system reviewed and no additional complaints, except as documented and Reports Abnormal speech present [facility], [facility] Past Medical History Medical History Anxiety Asthma, allergic Borderline hypertension Collagenous colitis Depression Elevated cholesterol History of colon polyps PTSD (post-traumatic stress disorder) Surgical History H/O: History of colonoscopy Hx laparoscopic cholecystectomy (~2005) Social History Social History Household Members: Spouse and Children Household Members Other:: son 15 Alcohol intake: never Patient Tobacco Use Status: Never used Tobacco Second Hand Smoke Exposure: No Advance Directives: No Advance Directives Information Provided: Yes Current occupational status: employed and unemployed Current [place]: [employer] [place] Physical Exam ED Vital Signs: Vital Signs - 24 hr 04/23/22 21:19 04/23/22 21:39 04/23/22 23:32 Temperature 98.9 F 97.7 F Pulse Rate 75 76 Respiratory Rate 18 68 H Blood Pressure 168/90 H 178/87 H 183/88 H Pulse Oximetry 94 95 95 Oxygen Delivery Method Room Air Room Air Room Air BMI result Body Mass Index 37.1 Vital signs have been reviewed as appeared to be correct. Blood pressure normal. Heart rate normal. Respiration rate normal. Temperature normal. Oxygen saturation normal. Appearance: Alert. Oriented X3. No acute distress. Head: Normal external exam. Normocephalic. Atraumatic. No Freeman signs noted. No raccoon eyes noted Eyes: PERRLA. EOMI. Conjunctiva and sclera normal. Eyelids normal. ENT: TM's Normal. Pharynx normal. Uvula midline. Moist mucous membranes. No trismus noted. No drooling noted. No muffled voice noted. Neck: Normal inspection. Neck supple. FROM. No adenopathy. Thyroid Normal. No meningeal signs. No neck mass noted. No emphysema CVS: Normal heart rate and rhythm. Heart sound normal. No murmurs noted. Pulses normal throughout. Respiratory: No respiratory distress. Painless inspiration. Breath sounds normal. No wheezes/rales/rhonchi noted. Chest nontender. No accessory muscle usage noted or decreased air movement noted. Abdomen: Soft and nontender. Bowel sounds normal in all 4 quadrants. No distention noted. No organomegaly noted. No visible injury noted. Back: No CVA tenderness. Full range of motion noted. Skin: Skin warm and dry. Normal skin color. Normal skin turgor. No rashes/lesions/lacerations noted. Extremities: No lower extremity edema. Extremities exhibit normal range of motion. Extremities nontender. Neuro: Oriented X 3. Cranial nerve exam: II-XII are grossly intact No motor deficit. No sensory deficit. Reflexes normal. Course Course Course Narrative: 56-year-old female came in for evaluation of neck/chest pain after having upper endoscopy today. Initially was a concern of post endoscopy complication of viscus perforation, physical exam showed no subcutaneous emphysema, CT of neck and chest with p.o./IV contrast show no suspicion for visceral perforation with no free air or pneumomediastinum, patient also had a cardiac workup which was unremarkable, patient feels better with improvement of the neck and chest pain, able to swallow medication in the ED still having some discomfort with swallowing and dysphagia. Patient was instructed to follow Dr. Clancy's instructions, patient did not slat pickler her prescription for PPI was given 1 dose in the ED until she gets her prescription. Will discharge the patient to follow-up with her PCP/GI. Medical Decision Making Lab Data Lab results reviewed: Yes I reviewed the patient's lab results. Result diagrams: 04/23/22 21:48 04/23/22 21:48 Labs: Lab Results 04/23/22 04/23/22 04/23/22 Range/Units 21:48 21:48 21:48 WBC 6.7 (4.8-10.8) X10*3/uL RBC 4.90 (4.20-5.50) X10*6/uL Hgb 11.9 L (12.0-16.0) g/dl Hct 37.9 (37.0-47.0) % MCV 77.3 L (80.0-98.0) fL MCH 24.3 L (27.0-33.0) pg MCHC 31.4 (31.0-35.0) g/dl RDW 17.8 H (11.0-16.0) % Plt Count 294 (160-400) X10*3/uL MPV 8.8 L (9.4-12.3) fL Immature Gran % (Auto) 0.3 (0.0-0.4) % Neut % (Auto) 53.7 (45-73) % Lymph % (Auto) 33.6 (20-40) % Schuyler % (Auto) 7.2 (2-11) % Eos % (Auto) 4.5 H (0-4) % Baso % (Auto) 0.7 (0-2) % Lymph # (Auto) 2.2 (1.2-4.9) X10*3/uL Schuyler # (Auto) 0.5 (0.1-1.2) X10*3/uL Eos # (Auto) 0.3 (0.0-0.4) X10*3/uL Baso # (Auto) 0.1 (0.0-0.2) X10*3/uL Abs Immat Gran (auto) 0.02 (0.00-0.03) X10*3/uL Absolute Neuts (auto) 3.6 (2.0-8.3) x10*3/uL Absolute Nucleated RBC 0.000 (0.0-0.012) X10*3/uL Nucleated RBC % (auto) 0.0 (0.0-0.2) /100WBC Sodium 141 (135-145) mmol/L Potassium 4.0 (3.3-5.1) mmol/L Chloride 104 (96-108) mmol/L Carbon Dioxide 27 (22-29) mmol/L Anion Gap 14 (12-20) BUN 19 H (9-16) mg/dL Creatinine 1.05 (0.5-1.4) mg/dL Estim Creat Clear Calc 73.0 Estimated GFR 54 Random Glucose 135 H (60-115) mg/dL Calcium 8.6 (8.4-10.2) mg/dL Total Bilirubin 0.3 (0.0-1.0) mg/dL Direct Bilirubin < 0.2 (0.0-0.5) mg/dL AST 32 H (5-31) U/L ALT 40 H (0-31) U/L Alkaline Phosphatase 87 (39-117) U/L Troponin I High Sens 9.1 (<3.5-17.0) ng/L Total Protein 7.1 (6.5-8.0) g/dL Albumin 3.8 (3.5-5.0) g/dL Lipase 18 (8-78) U/L COVID-19 ([facility]) (Negative) COVID-19 Clin Com S. pyogenes GrpA CURTIS (Negative) 04/23/22 04/23/22 Range/Units 21:52 21:52 WBC (4.8-10.8) X10*3/uL RBC (4.20-5.50) X10*6/uL Hgb (12.0-16.0) g/dl Hct (37.0-47.0) % MCV (80.0-98.0) fL MCH (27.0-33.0) pg MCHC (31.0-35.0) g/dl RDW (11.0-16.0) % Plt Count (160-400) X10*3/uL MPV (9.4-12.3) fL Immature Gran % (Auto) (0.0-0.4) % Neut % (Auto) (45-73) % Lymph % (Auto) (20-40) % Schuyler % (Auto) (2-11) % Eos % (Auto) (0-4) % Baso % (Auto) (0-2) % Lymph # (Auto) (1.2-4.9) X10*3/uL Schuyler # (Auto) (0.1-1.2) X10*3/uL Eos # (Auto) (0.0-0.4) X10*3/uL Baso # (Auto) (0.0-0.2) X10*3/uL Abs Immat Gran (auto) (0.00-0.03) X10*3/uL Absolute Neuts (auto) (2.0-8.3) x10*3/uL Absolute Nucleated RBC (0.0-0.012) X10*3/uL Nucleated RBC % (auto) (0.0-0.2) /100WBC Sodium (135-145) mmol/L Potassium (3.3-5.1) mmol/L Chloride (96-108) mmol/L Carbon Dioxide (22-29) mmol/L Anion Gap (12-20) BUN (9-16) mg/dL Creatinine (0.5-1.4) mg/dL Estim Creat Clear Calc Estimated GFR Random Glucose (60-115) mg/dL Calcium (8.4-10.2) mg/dL Total Bilirubin (0.0-1.0) mg/dL Direct Bilirubin (0.0-0.5) mg/dL AST (5-31) U/L ALT (0-31) U/L Alkaline Phosphatase (39-117) U/L Troponin I High Sens (<3.5-17.0) ng/L Total Protein (6.5-8.0) g/dL Albumin (3.5-5.0) g/dL Lipase (8-78) U/L COVID-19 ([facility]) Negative (Negative) COVID-19 Clin Com See Note S. pyogenes GrpA CURTIS Negative (Negative) Imaging Data CT neck: Attestation: I personally reviewed and interpreted this imaging study as follows: Radiologist's impression: Within the limitations of motion degradation, no abnormality of the soft tissues of the neck is identified CT chest: Attestation: I personally reviewed and interpreted this imaging study as follows: Radiologist's impression: No acute findings. No pneumomediastinum. No pneumothorax. No suspicious finding in the lungs.? ? ECG Data Attestation: I personally reviewed and interpreted this ECG as follows: Interpretation: Normal sinus rhythm at 68 beats per minutes, left axis deviation, normal intervals, no ST-T changes, no old EKG to compare. Discharge Plan Discharge Clinical Impression: Dysphagia Patient Disposition: Home, Self-Care Instructions: Dysphagia (ED) Prescriptions: No Action dicyclomine 10 mg capsule 20 mg PO BID Qty: 90 3RF nitrofurantoin monohyd/m-cryst [Macrobid] 100 mg capsule 100 mg PO BID 5 Days Qty: 10 0RF Rx Instructions: must administer with a meal/food fluconazole [Diflucan] 150 mg tablet 150 mg PO DAILY 1 Days Qty: 1 0RF budesonide 9 mg tablet,delayed and ext.release 9 mg PO QAM 56 Days Qty: 56 2RF budesonide 6 mg capsule, extended release 6 mg PO QAM 14 Days Qty: 14 0RF Rx Instructions: treatment course- 6 mg daily x14 days budesonide 3 mg capsule,delayed,extend.release 9 mg PO DAILY 14 Days Qty: 42 0RF bismuth subsalicylate 262 mg tablet,chewable 2 tab PO BID 30 Days Qty: 120 2RF mesalamine [Asacol HD] 800 mg tablet,delayed release (DR/EC) 1,600 mg PO TID 28 Days Qty: 168 0RF Rx Instructions: must be taken on empty stomach; no food 1 hr after or 2-3 hrs before dose Magic Mouthwash Diphen/Lido/Antacid 1:1:1 240 mL suspension 10 ml PO QID Qty: 240 0RF Rx Instructions: Lidocaine Viscous 2 % 80mL; diphenhydramine 12.5 mg/5 mL 80mL; aluminum-mag hydrox-simeth [id number]/5mL 80mL pantoprazole 40 mg tablet,delayed release (DR/EC) 40 mg PO DAILY Qty: 60 2RF pantoprazole 40 mg tablet,delayed release (DR/EC) 40 mg PO DAILY Qty: 60 2RF Magic Mouthwash Diphen/Lido/Antacid 1:1:1 240 mL suspension 10 ml PO QID Qty: 240 0RF Rx Instructions: Lidocaine Viscous 2 % 80mL; diphenhydramine 12.5 mg/5 mL 80mL; aluminum-mag hydrox-simeth [id number]/5mL 80mL venlafaxine [Effexor XR] 150 mg capsule,extended release 24hr 150 mg PO DAILY bupropion HCl 300 mg tablet extended release 24 hr 300 mg PO QAM methylphenidate HCl 20 mg capsule, ER biphasic 30-70 20 mg PO DAILY fluticasone propion-salmeterol [Wixela Inhub] 100-50 mcg/dose blister with device 1 inh inhalation BID Referrals: Christina Contreras MD [Primary Care Provider] - Caden Clancy MD [Physician] -
[2022-04-23 21:52] LABS: MANUAL DIFF FLAG NO
[2022-04-23 21:53] LABS: Basophils Absolute Auto 0.1 X10*3/uL (0.0-0.2); Basophils Percent Auto 0.7 % (0-2); Eosinophils Absolute Auto 0.3 X10*3/uL (0.0-0.4); Eosinophils Percent Auto 4.5 % (0-4); Hematocrit 37.9 % (37.0-47.0); Hemoglobin 11.9 g/dl (12.0-16.0); Imm Gran Abs Auto 0.02 X10*3/uL (0.00-0.03); Imm Gran Pct Auto 0.3 % (0.0-0.4); Lymphocytes Absolute Auto 2.2 X10*3/uL (1.2-4.9); Lymphocytes Percent Auto 33.6 % (20-40); Mean Corpuscular HGB Conc 31.4 g/dl (31.0-35.0); Mean Corpuscular Hemoglobin 24.3 pg (27.0-33.0); Mean Corpuscular Volume 77.3 fL (80.0-98.0); Mean Platelet Volume 8.8 fL (9.4-12.3); Monocytes Absolute Auto 0.5 X10*3/uL (0.1-1.2); Monocytes Percent Auto 7.2 % (2-11); Neutrophils Absolute Auto 3.6 x10*3/uL (2.0-8.3); Neutrophils Percent Auto 53.7 % (45-73); Platelet Count 294 X10*3/uL (160-400); Red Cell Distribution Width 17.8 % (11.0-16.0); White Blood Count 6.7 X10*3/uL (4.8-10.8)
[2022-04-23 22:09] LABS: Alanine Aminotransferase 40 U/L (0-31); Albumin Level 3.8 g/dL (3.5-5.0); Alkaline Phosphatase 87 U/L (39-117); Anion Gap 14 (12-20); Aspartate Amino Transferase 32 U/L (5-31); Bilirubin Direct < 0.2 mg/dL (0.0-0.5); Bilirubin Total 0.3 mg/dL (0.0-1.0); Blood Urea Nitrogen 19 mg/dL (9-16); Calcium 8.6 mg/dL (8.4-10.2); Carbon Dioxide 27 mmol/L (22-29); Chloride 104 mmol/L (96-108); Estimated Glomerular Filt Rate 54; Glucose Random 135 mg/dL (60-115); Lipase 18 U/L (8-78); Sodium 141 mmol/L (135-145); Total Protein 7.1 g/dL (6.5-8.0)
[2022-04-23 22:15] LABS: Troponin-I High Sensitivity 9.1 ng/L (<3.5-17.0)
[2022-04-23 22:17] LABS: IDNOW Serial# 08D9AD1C; Strep A Nucleic Acid Negative (Negative)
[2022-04-23 22:21] LABS: COVID-19 Test Negative (Negative); IDNOW Serial# 55D5AD1C
[2022-04-23] MEDS: iohexoL 350 MG/ML 100 ML INFUS..BTL IV (22:35)
[2022-04-23] MEDS: Diatrizoate Meglumine, Sodium 30 ML SOLUTION PO (22:39)
[2022-04-23] MEDS: 0.9 % Sodium Chloride 1,000 ML 999 ML IV (22:56)
[2022-04-23 23:32] VITALS: BP 183/88; PULSE 68; RESP 16; O2SAT 95
[2022-04-23] MEDS: Lidocaine HCl Viscous 2 % 15 ML SOLUTION MUCOUS MEM (23:43)
[2022-04-23] MEDS: Magnesium Hydrox/Alum Hydrox 30 ML ORAL.SUSP PO (23:43)
[2022-04-24] MEDS: Omeprazole 40 MG CAPSULE.DR PO (00:05)
== END 2022-04-24 00:17 | disposition home or self-care (01) ==
PROVIDERS: Emergency Provider Emergency Medicine; PCP Internal Medicine
DX: R13.10 Dysphagia, unspecified (principal); M54.2 Cervicalgia; R07.89 Other chest pain; Z20.822 Contact with and (suspected) exposure to COVID-19
CPT/HCPCS: 36415; 70491; 71260; 80048; 80076; 83690; 84484; 85025; 87635; 87651; 93005; 99284; Q9967

== ENCOUNTER 2022-04-29 06:55 | Emergency (ER) | payer OTHER, SELFPAY ==
--- NOTE | ~2022-04-29 | CT_ITS ---
EXAMINATION: CT HEAD WITHOUT CONTRAST CLINICAL INFORMATION: Dizziness. COMPARISON: None TECHNIQUE: Contiguous axial imaging was performed from the skull base to vertex without intravenous administration of contrast. Coronal and sagittal reformatted images were obtained. This CT examination was performed using dose optimization techniques as appropriate, variously including the following: *Automated exposure control *Adjustment of mA and/or kV according to patient size (this includes techniques or standardized protocols for targeted exams where dose is matched to indication/reason for exam; i.e. extremities or head) *Use of iterative reconstruction technique DLP: 694 mGy-cm FINDINGS: There is no evidence of acute intracranial hemorrhage or territorial infarction. No abnormal mass effect or midline shift is seen. Ball to white matter differentiation is well preserved. No extra-axial fluid collections are identified. The ventricles are normal in size. There is no abnormal attenuation within the brain parenchyma. Incidental hyperostosis frontalis interna without other significant osseous abnormality.. The mastoid air cells and visualized portions of the paranasal sinuses are well aerated. CT/CT head/brain wo con IMPRESSION: No acute intracranial pathology.
[2022-04-29 07:09] VITALS: BP 187/100; PULSE 69; RESP 18; TEMP 36.6; O2SAT 93; BMI 37.1
--- NOTE | 2022-04-29 07:29 | PC.NURSE ---
Addendum entered by Mere Bender 04/29/22 07:31: BELOW NOTE CREATED BY THIS RN Original Note: PT AOX4 AMB WITH STEADY GAIT STATES FEELING DIZZY AND PRESSURE BEHIND EARS, ALSO NEW HTN, WAITING TO BE SEEN BY PROVIDER
--- NOTE | 2022-04-29 07:43 | ECG_ITS ---
Test Reason : dizziness Blood Pressure : / mmHG Vent. Rate : 062 BPM Atrial Rate : 062 BPM P-R Int : 160 ms QRS Dur : 094 ms QT Int : 428 ms P-R-T Axes : 035 -02 052 degrees QTc Int : 434 ms Normal sinus rhythm Normal ECG When compared with ECG of 23-APR-2022 21:59, No significant change was found Referred By: Shelia Donaldson Electronically Signed By:JOHAN BEE
--- NOTE | 2022-04-29 07:45 | ED.DIZZY ---
HPI - Dizziness General Chief Complaint: General Medical Stated Complaint: high bp, dizziness Time Seen by Provider: 04/29/22 07:22 Source: patient Mode of arrival: ambulatory Limitations: no limitations History of Present Illness HPI Narrative: 56 yo female with hx of anxiety, colitis, dysphagia - notes she woke up feeling lightheaded this AM around 530am - no headaches no CP/SOB - she went back to bed woke up again feeling lightheaded when she gets up to use the bathroom. She denies black or bloody stools. She has no numbness no weakness. She is able to walk. She also reports her BP at home was 170s - she has never had issues with her BP before. took new supplement off of [employer] before bed last night - it had turmeric and cumin in it this was the first time MD elicited complaint: lightheadedness Pertinent past history: other Onset (ago): hour(s) (woke up with symptoms 530am) Timing: awoke with symptoms and intermittent Severity: mild Description: lightheadedness Context: change in body position History of similar symptoms: No Exacerbating factors: change in body position Relieving factors: remaining still Associated symptoms: other (noted some mild ear pain) Related Data Home Medications Medication Instructions Recorded Confirmed bupropion HCl 300 mg 24 hr tablet, 300 mg PO QAM 10/16/20 02/19/22 extended release fluticasone 100 mcg-salmeterol 50 1 inh inhalation BID 10/16/20 02/19/22 mcg/dose blistr powdr for inhalation (Wixela Inhub) methylphenidate HCl 20 mg biphasic 20 mg PO DAILY 10/16/20 02/19/22 30-70 capsule,extended release venlafaxine 150 mg 150 mg PO DAILY 10/16/20 02/19/22 capsule,extended release 24 hr (Effexor XR) Previous Rx's Medication Instructions Recorded dicyclomine 10 mg capsule 20 mg PO BID #90 caps 11/04/20 fluconazole 150 mg tablet 150 mg PO DAILY 1 day #1 tab 11/07/21 (Diflucan) nitrofurantoin 100 mg PO BID 5 days #10 caps 11/07/21 monohydrate/macrocrystals 100 mg capsule (Macrobid) budesonide 9 mg tablet,delayed and 9 mg PO QAM 8 weeks #56 ea 12/02/21 extended release budesonide 6 mg capsule,extended 6 mg PO QAM taper 14 days #14 caps 03/10/22 release bismuth subsalicylate 262 mg 2 tab PO BID 30 days #120 tabs 04/03/22 chewable tablet budesonide 3 mg 9 mg PO DAILY Treatment taper 14 04/03/22 capsule,delayed,extended release days #42 ea mesalamine 800 mg tablet,delayed 1,600 mg PO TID 4 weeks #168 tabs 04/07/22 release (Asacol HD) Magic Mouthwash 10 ml PO QID #240 mL 04/23/22 Diphen/Lido/Antacid 1:1:1 240 mL suspension Magic Mouthwash 10 ml PO QID #240 mL 04/23/22 Diphen/Lido/Antacid 1:1:1 240 mL suspension pantoprazole 40 mg tablet,delayed 40 mg PO DAILY #60 tabs 04/23/22 release pantoprazole 40 mg tablet,delayed 40 mg PO DAILY #60 tabs 04/23/22 release meclizine 25 mg tablet 25 mg PO TID PRN dizziness #30 tabs 04/29/22 Allergies Allergy/AdvReac Type Severity Reaction Status Date / Time ciprofloxacin [From CIPRO] Allergy Intermediate RASH Verified 02/19/22 08:32 Sulfa (Sulfonamide Allergy Intermediate RASH Verified 02/19/22 08:32 Antibiotics) [SULFA (SULFONAMIDE ANTIBIOTICS)] Review of Systems Review of Systems: Constitutional : No Weight loss, No Fever, No Chills, No Fatigue, No Malaise ENT/Mouth : No sore throat, No Rhinorrhea Eyes: No Eye Pain, No Swelling, No Redness, pos ear pain Cardiovascular : No Chest Pain, No SOB, No Dyspnea on Exertion, No Orthopnea, No Edema, No Palpitations Respiratory : No Cough, No Sputum, No Wheezing Gastrointestinal : No Nausea, No Vomiting, No Diarrhea, No Constipation, No abdominal Pain, No Hematochezia, No Melena Genitourinary : No Dysuria, No Urinary Frequency, No Hematuria, Musculoskeletal : No joint pain, No Myalgias, No Joint Swelling Skin : No Skin Lesions, No rash Neuro : No Weakness, No Numbness, pos Dizziness, No Headache Psych : No Anxiety/Panic, No Depression Heme/Lymph: No Bruising, No Bleeding,No Lymphadenopathy Endocrine : No Polyuria, No Polydipsia All other systems reviewed and are negative [facility] Past Medical History Attestation statement: The following information was validated with the patient. Medical History Anxiety Asthma, allergic Borderline hypertension Collagenous colitis Depression Elevated cholesterol History of colon polyps PTSD (post-traumatic stress disorder) Surgical History H/O: History of colonoscopy Hx laparoscopic cholecystectomy (~2005) Social History Social History Household Members: Spouse and Children Household Members Other:: son 15 Alcohol intake: never Patient Tobacco Use Status: Never used Tobacco Second Hand Smoke Exposure: No Advance Directives: No Advance Directives Information Provided: No Current occupational status: employed and unemployed Current occupation: [employer] – [place] Physical Exam Vital Signs: Vital Signs: Last Vital Signs Temp 97.8 F 04/29/22 07:09 Pulse 63 04/29/22 10:11 Resp 16 04/29/22 10:11 BP 131/49 L 04/29/22 10:11 Pulse Ox 97 04/29/22 10:11 O2 Del Method 04/29/22 10:11 BMI result Body Mass Index 37.1 Appearance: Alert. Oriented X3. No acute distress. Eyes: Pupils equal, round and reactive to light. ENT: Pharynx normal. normal TMs bilaterally Neck: Normal inspection. Neck supple. CVS: Normal heart rate and rhythm. Pulses normal. Respiratory: No respiratory distress. Breath sounds normal. Abdomen: Soft and non-tender. Skin: Skin warm and dry. Normal skin color. Normal skin turgor. Extremities: No lower extremity edema. No calf ttp Neuro: Oriented X 3. No motor deficit. No sensory deficit. NIH Stroke Scale Internal: Initial- Upon Arrival Level of Consciousness: Alert Level of Consciousness Questions: Answers both questions correctly Level of Consciousness Commands: Performs both tasks correctly Best Gaze: Normal Visual: No visual loss Facial Palsy: Normal Motor Arm (Right): No drift Motor Arm (Left): No drift Motor Leg (Right): No drift Motor Leg (Left): No drift Limb Ataxia: Absent Sensory: Normal Best Language: No aphasia Dysarthia: Normal Extinction and Inattention: No abnormality Score: 0 Course Course Course Narrative: no ataxia, no nystagmus, no pronator drift, still feels dizzy steady gait will try meclizine the patient reports dizziness when turning head to the right. feels slightly better, no neuro findings, steady gait, no visual field cuts, BP normal without interventions, no ataxia, no drift, no leaning - no signs of posterior stroke at this time she feels stable and well enough to go home after treatment, plan to not take supplement today MDM - Dizziness MDM Narrative Medical decision making narrative: 56 yo female with hx of anxiety, colitis, dysphagia comes in with c/o waking up feeling lightheaded particularly when she gets up to talk. She denies CP/SOB and denies GIB symptoms. She has a normal neuro exam is in no distress. BP was high at home but trending down now. Her BP is currently in the 160s. She did take a new supplement before bed off of [employer]. At this time will obtain basic labs, EKG, hydrate the patient, CT head for mass. Lab Data Result diagrams: 04/29/22 07:53 04/29/22 07:53 Labs: Lab Results 04/29/22 04/29/22 04/29/22 Range/Units 07:53 07:53 07:53 WBC 5.2 (4.8-10.8) X10*3/uL RBC 4.63 (4.20-5.50) X10*6/uL Hgb 11.5 L (12.0-16.0) g/dl Hct 36.3 L (37.0-47.0) % MCV 78.4 L (80.0-98.0) fL MCH 24.8 L (27.0-33.0) pg MCHC 31.7 (31.0-35.0) g/dl RDW 18.0 H (11.0-16.0) % Plt Count 288 (160-400) X10*3/uL MPV 9.1 L (9.4-12.3) fL Immature Gran % (Auto) 0.2 (0.0-0.4) % Neut % (Auto) 40.5 L (45-73) % Lymph % (Auto) 41.5 H (20-40) % Cla[place]orne % (Auto) 9.8 (2-11) % Eos % (Auto) 6.8 H (0-4) % Baso % (Auto) 1.2 (0-2) % Lymph # (Auto) 2.2 (1.2-4.9) X10*3/uL [place]orne # (Auto) 0.5 (0.1-1.2) X10*3/uL Eos # (Auto) 0.4 (0.0-0.4) X10*3/uL Baso # (Auto) 0.1 (0.0-0.2) X10*3/uL Abs Immat Gran (auto) 0.01 (0.00-0.03) X10*3/uL Absolute Neuts (auto) 2.1 (2.0-8.3) x10*3/uL Absolute Nucleated RBC 0.000 (0.0-0.012) X10*3/uL Nucleated RBC % (auto) 0.0 (0.0-0.2) /100WBC Sodium 143 (135-145) mmol/L Potassium 3.9 (3.3-5.1) mmol/L Chloride 104 (96-108) mmol/L Carbon Dioxide 28 (22-29) mmol/L Anion Gap 15 (12-20) BUN 24 H (9-16) mg/dL Creatinine 1.02 (0.5-1.4) mg/dL Estim Creat Clear Calc 75.1 Estimated GFR 56 Random Glucose 101 (60-115) mg/dL Calcium 8.6 (8.4-10.2) mg/dL Magnesium 2.1 (1.6-2.6) mg/dL Total Bilirubin < 0.2 (0.0-1.0) mg/dL Direct Bilirubin < 0.2 (0.0-0.5) mg/dL AST 33 H (5-31) U/L ALT 41 H (0-31) U/L Alkaline Phosphatase 92 (39-117) U/L Troponin I High Sens (<3.5-17.0) ng/L Total Protein 6.9 (6.5-8.0) g/dL Albumin 3.7 (3.5-5.0) g/dL COVID-19 ([facility]) Negative (Negative) COVID-19 Clin Com See Note 04/29/22 Range/Units 07:53 WBC (4.8-10.8) X10*3/uL RBC (4.20-5.50) X10*6/uL Hgb (12.0-16.0) g/dl Hct (37.0-47.0) % MCV (80.0-98.0) fL MCH (27.0-33.0) pg MCHC (31.0-35.0) g/dl RDW (11.0-16.0) % Plt Count (160-400) X10*3/uL MPV (9.4-12.3) fL Immature Gran % (Auto) (0.0-0.4) % Neut % (Auto) (45-73) % Lymph % (Auto) (20-40) % Claiborne % (Auto) (2-11) % Eos % (Auto) (0-4) % Baso % (Auto) (0-2) % Lymph # (Auto) (1.2-4.9) X10*3/uL [place]orne # (Auto) (0.1-1.2) X10*3/uL Eos # (Auto) (0.0-0.4) X10*3/uL Baso # (Auto) (0.0-0.2) X10*3/uL Abs Immat Gran (auto) (0.00-0.03) X10*3/uL Absolute Neuts (auto) (2.0-8.3) x10*3/uL Absolute Nucleated RBC (0.0-0.012) X10*3/uL Nucleated RBC % (auto) (0.0-0.2) /100WBC Sodium (135-145) mmol/L Potassium (3.3-5.1) mmol/L Chloride (96-108) mmol/L Carbon Dioxide (22-29) mmol/L Anion Gap (12-20) BUN (9-16) mg/dL Creatinine (0.5-1.4) mg/dL Estim Creat Clear Calc Estimated GFR Random Glucose (60-115) mg/dL Calcium (8.4-10.2) mg/dL Magnesium (1.6-2.6) mg/dL Total Bilirubin (0.0-1.0) mg/dL Direct Bilirubin (0.0-0.5) mg/dL AST (5-31) U/L ALT (0-31) U/L Alkaline Phosphatase (39-117) U/L Troponin I High Sens 6.4 (<3.5-17.0) ng/L Total Protein (6.5-8.0) g/dL Albumin (3.5-5.0) g/dL COVID-19 ([facility]) (Negative) COVID-19 Clin Com ECG Data Attestation: I personally reviewed and interpreted this ECG as follows: ECG interpretation date: 04/29/22 ECG interpretation time: 07:59 Interpretation: Rate: 62 Rhythm: NSR Brandon: left Normal P waves. Normal ANA. Normal QRS complex. ST T wave : normal no CIRO qTC: normal prior studies: no acute ischemia The study has been interpreted contemporaneously by me. Discharge Plan Discharge Clinical Impression: Dizziness Patient Disposition: Home, Self-Care Instructions: Lightheadedness (ED) Additional Instructions: return to ED for any worsening symptoms or concerns do not take the supplement today, return if you do not improve or any other worrisome signs Prescriptions: New meclizine 25 mg tablet 25 mg PO TID PRN (Reason: dizziness) Qty: 30 0RF No Action dicyclomine 10 mg capsule 20 mg PO BID Qty: 90 3RF nitrofurantoin monohyd/m-cryst [Macrobid] 100 mg capsule 100 mg PO BID 5 Days Qty: 10 0RF Rx Instructions: must administer with a meal/food fluconazole [Diflucan] 150 mg tablet 150 mg PO DAILY 1 Days Qty: 1 0RF budesonide 9 mg tablet,delayed and ext.release 9 mg PO QAM 56 Days Qty: 56 2RF budesonide 6 mg capsule, extended release 6 mg PO QAM 14 Days Qty: 14 0RF Rx Instructions: treatment course- 6 mg daily x14 days budesonide 3 mg capsule,delayed,extend.release 9 mg PO DAILY 14 Days Qty: 42 0RF bismuth subsalicylate 262 mg tablet,chewable 2 tab PO BID 30 Days Qty: 120 2RF mesalamine [Asacol HD] 800 mg tablet,delayed release (DR/EC) 1,600 mg PO TID 28 Days Qty: 168 0RF Rx Instructions: must be taken on empty stomach; no food 1 hr after or 2-3 hrs before dose Leticia Mouthwash Diphen/Lido/Antacid 1:1:1 240 mL suspension 10 ml PO QID Qty: 240 0RF Rx Instructions: Lidocaine Viscous 2 % 80mL; diphenhydramine 12.5 mg/5 mL 80mL; aluminum-mag hydrox-simeth [id number]/5mL 80mL pantoprazole 40 mg tablet,delayed release (DR/EC) 40 mg PO DAILY Qty: 60 2RF pantoprazole 40 mg tablet,delayed release (DR/EC) 40 mg PO DAILY Qty: 60 2RF Magic Mouthwash Diphen/Lido/Antacid 1:1:1 240 mL suspension 10 ml PO QID Qty: 240 0RF Rx Instructions: Lidocaine Viscous 2 % 80mL; diphenhydramine 12.5 mg/5 mL 80mL; aluminum-mag hydrox-simeth [id number]/5mL 80mL venlafaxine [Effexor XR] 150 mg capsule,extended release 24hr 150 mg PO DAILY bupropion HCl 300 mg tablet extended release 24 hr 300 mg PO QAM methylphenidate HCl 20 mg capsule, ER biphasic 30-70 20 mg PO DAILY fluticasone propion-salmeterol [Wixela Inhub] 100-50 mcg/dose blister with device 1 inh inhalation BID Stand Alone Forms: Work/School Release Interventions: ED Discharge Assessment Last Done: 04/29/22 11:42 Discharge Date/Time: 04/29/22 11:43
[2022-04-29] MEDS: 0.9 % Sodium Chloride 1,000 ML 999 ML IVCONT (07:55)
[2022-04-29 07:59] LABS: MANUAL DIFF FLAG NO
[2022-04-29 08:04] LABS: Basophils Absolute Auto 0.1 X10*3/uL (0.0-0.2); Basophils Percent Auto 1.2 % (0-2); Eosinophils Absolute Auto 0.4 X10*3/uL (0.0-0.4); Eosinophils Percent Auto 6.8 % (0-4); Hematocrit 36.3 % (37.0-47.0); Hemoglobin 11.5 g/dl (12.0-16.0); Imm Gran Abs Auto 0.01 X10*3/uL (0.00-0.03); Imm Gran Pct Auto 0.2 % (0.0-0.4); Lymphocytes Absolute Auto 2.2 X10*3/uL (1.2-4.9); Lymphocytes Percent Auto 41.5 % (20-40); Mean Corpuscular HGB Conc 31.7 g/dl (31.0-35.0); Mean Corpuscular Hemoglobin 24.8 pg (27.0-33.0); Mean Corpuscular Volume 78.4 fL (80.0-98.0); Mean Platelet Volume 9.1 fL (9.4-12.3); Monocytes Absolute Auto 0.5 X10*3/uL (0.1-1.2); Monocytes Percent Auto 9.8 % (2-11); Neutrophils Absolute Auto 2.1 x10*3/uL (2.0-8.3); Neutrophils Percent Auto 40.5 % (45-73); Platelet Count 288 X10*3/uL (160-400); Red Blood Count 4.63 X10*6/uL (4.20-5.50); White Blood Count 5.2 X10*3/uL (4.8-10.8)
[2022-04-29 08:15] LABS: COVID-19 Test Negative (Negative)
[2022-04-29 08:23] LABS: Troponin-I High Sensitivity 6.4 ng/L (<3.5-17.0)
[2022-04-29 08:24] LABS: Alanine Aminotransferase 41 U/L (0-31); Albumin Level 3.7 g/dL (3.5-5.0); Alkaline Phosphatase 92 U/L (39-117); Anion Gap 15 (12-20); Aspartate Amino Transferase 33 U/L (5-31); Bilirubin Direct < 0.2 mg/dL (0.0-0.5); Bilirubin Total < 0.2 mg/dL (0.0-1.0); Blood Urea Nitrogen 24 mg/dL (9-16); Calcium 8.6 mg/dL (8.4-10.2); Carbon Dioxide 28 mmol/L (22-29); Chloride 104 mmol/L (96-108); Creatinine Clr Calc Pharmacy 75.1; Estimated Glomerular Filt Rate 56; Glucose Random 101 mg/dL (60-115); Magnesium 2.1 mg/dL (1.6-2.6); Potassium 3.9 mmol/L (3.3-5.1); Sodium 143 mmol/L (135-145); Total Protein 6.9 g/dL (6.5-8.0)
[2022-04-29 09:35] VITALS: BP 151/76
[2022-04-29] MEDS: Meclizine HCl 25 MG TABLET PO (09:52)
[2022-04-29 10:11] VITALS: BP 131/49; PULSE 63; RESP 16; O2SAT 97
== END 2022-04-29 11:43 | disposition home or self-care (01) ==
PROVIDERS: Emergency Provider Emergency Medicine; PCP Internal Medicine
DX: R42 Dizziness and giddiness (principal); Z20.822 Contact with and (suspected) exposure to COVID-19; I10 Essential (primary) hypertension; E78.00 Pure hypercholesterolemia, unspecified
CPT/HCPCS: 36415; 70450; 80048; 80076; 83735; 84484; 85025; 87635; 93005; 96360; 96361; 99284

== ENCOUNTER 2022-06-11 09:04 | Outpatient (REF) | payer OTHER, SELFPAY ==
--- NOTE | ~2022-06-11 | FL_ITS ---
EXAMINATION: FL BARIUM SWALLOW CLINICAL INFORMATION: Dysphagia. History of esophageal balloon dilatation. COMPARISON: Previous barium swallow December [address] of the chest April 2022. TECHNIQUE: Barium swallow examination is performed using fluoroscopic evaluation in addition to multiple fluoroscopic spot views. The patient was imaged upright following thin and thick barium and effervescent granules. The patient vomited after being administered effervescent granules. Barium tablet was administered. The patient could not tolerate prone CASTILLO drinking portion of the exam. Fluoroscopy time: 0.7 minutes DAP: 5 Gycm2 Images: 72 FINDINGS: The swallowing mechanism is normal. No aspiration or penetration is seen. The cricopharyngeus muscle appears less prominent than on previous exam. Abnormal tertiary contractions in the proximal esophagus that were seen on December 2021 exam also appear improved. There is still question of some residual narrowing of the proximal cervical esophagus. No leak is seen. There is temporary stasis of the barium tablet at the GE junction. No mass is appreciated. Prone drinking CASTILLO esophagram could not be performed due to the patient's nausea and vomiting. No reflux was is observed with upright imaging. FL/FL barium swallow IMPRESSION: Limited exam due to patient nausea and vomiting. Cricopharyngeus muscle appears less prominent and previously identified tertiary contractions in the proximal cervical esophagus also appear improved. There is question of mild residual narrowing of the proximal cervical esophagus. Prone CASTILLO drinking esophagram not performed.
== END 2022-06-11 09:05 | disposition home or self-care (01) ==
LOC: HO.XRAY 09:04
PROVIDERS: PCP Internal Medicine; Visit Provider Internal Medicine Gastroenterology
DX: R13.10 Dysphagia, unspecified (principal)
CPT/HCPCS: 74220

== ENCOUNTER 2022-06-18 16:00 | Outpatient (RCR) | payer OTHER, SELFPAY | END 2022-06-19 11:45 | disposition home or self-care (01) | LOC: HO.PT 16:00 | PROVIDERS: PCP Internal Medicine; Visit Provider Nurse Practitioner Family | DX: M54.2 Cervicalgia (principal); M54.50 Low back pain, unspecified | CPT/HCPCS: 97110; 97112; 97140; 97162; 97530 ==

== ENCOUNTER 2022-06-30 08:27 | Outpatient (REF) | payer OTHER, SELFPAY ==
[2022-06-30 13:17] LABS: Appearance Urine Hazy; Color Urine ORANGE; Glucose Urine UA 250 mg/dL (Negative); Specific Gravity - Urine 1.025 (1.005-1.025); UMIC TRIGGER UA YES; Urine Blood Small (1+) (Negative); Urine Ketones Trace mg/dL (Negative); Urine Protein 100 (2+) mg/dL (Neg-Trace)
[2022-06-30 13:28] LABS: Bacteria Urine 1+ (None Seen); Hyaline Casts Urine 0-2 /LPF (0-2); RBC Urine >20 /HPF (0-2); WBC Urine 0-5 /HPF (0-5)
== END 2022-06-30 08:28 | disposition home or self-care (01) ==
LOC: HO.LAB 08:27
PROVIDERS: Visit Provider Obstetrics & Gynecology Female Pelvic Medicine and Reconstructive Surgery
DX: R30.0 Dysuria (principal)
CPT/HCPCS: 81001; 87086; 87088; 87186

== ENCOUNTER → 2022-10-29 17:00 | Outpatient (BNVA) | payer OTHER, SELFPAY | PROVIDERS: PCP Internal Medicine; Visit Provider Psychiatry & Neurology Psychiatry | DX: Z13.89 Encounter for screening for other disorder (principal) ==

== ENCOUNTER 2023-03-22 07:11 | Outpatient (AMB) | payer OTHER, SELFPAY ==
--- NOTE | 2023-03-22 07:40 | A.OFFVIS_ITS ---
Intake Vital Signs 03/22/23 07:43 Height 5 ft 6 in Weight 245 lb BMI 39.5 BP 122/74 Blood Pressure Location Lt brachial Position Sitting Pulse 82 Intake Visit Reasons: follow up Intake Note: Patient follow up for constipation. Patient cc: constipation and some dysphagia. Denies any other GI issues. Viscose Cellar Charge Hand Required: No Accompanied by: Spouse Allergies ciprofloxacin [From CIPRO] Allergy (Intermediate, Verified 03/22/23 07:38) RASH Sulfa (Sulfonamide Antibiotics) [SULFA (SULFONAMIDE ANTIBIOTICS)] Allergy (Intermediate, Verified 03/22/23 07:38) RASH Medication List - Last Reconciled 03/22/23 by Anthony Amador MD atorvastatin 20 mg PO budesonide 9 mg PO QAM 8 weeks budesonide ER 3 mg PO DAILY 60 days bupropion HCl 300 mg PO QAM clonazepam 0.5 mg PO DAILY PRN estradiol 0.01%(0.1mg/gram) vaginal losartan 25 mg PO DAILY methylphenidate HCl 20 mg PO TID propranolol 10 mg PO DAILY PRN venlafaxine ER 75 mg PO DAILY HPI follow up HPI Details GI clinic visit for this 57 YF for FU of dysphagia and collagenous colitis.? LABS IN [facility] : Reviewed IMAGING STUDIES: 12/2021 BARIUM SWALLOW SHOWED: Prominent moderate thickening of cricoesophageal sphincter moderately obstructing thick barium and barium-coated solid food during the exam. There is moderate barium/food retention in the piriform sinuses and mild retention in the valleculae which clears with subsequent 3 or 4 dry swallows and oral administration of water. ? Occasional tertiary peristalsis in the distal esophagus but no obstruction or narrowing. The GE junction is normal. ENDOSCOPIC STUDIES: 07/2021 EGD SHOWED: LARYNX: Laryngeal changes suggestive of LPRD ESOPHAGUS: GE junction at 38 cms. No esophagitis or Weiner's. Biopsies obtained from proximal esophagus to check for EOE. Empiric balloon dilation was performed with 19 mm CRE balloon x 60 seconds STOMACH: Mild gastritis No clear source found for dysphagia - ? achalasia, esophageal spasm due to GERD or EOE Plan:? Schedule a barium swallow for further evaluation. Start Omeprazole 20 mg twice daily Above findings were reviewed with the patient and GERD handouts were given in the discharge area. 11/2020 COLONOSCOPY SHOWED: Two adenomatous polyps removed. Random biopsies were obtained from the right and left colon. Moderate diverticulosis seen in the sigmoid colon Moderate hemorrhoids on retroflexed exam. Plan:? Repeat Colonoscopy interval based on path results - in 3-5 years if polyps are adenomatous and 10 years if polyps are hyperplastic. TODAY'S VISIT: Taking Budesonide 3 mg every other day and if feeling stable every 3rd. Unable to decrease to every 3rd day. Takes a 9 mg tab in case of breakthrough symptoms (twice in the last 6 months) Has a BM 2 times a week. Waking up with a lot more mucous in the throat - hasnt seen ENT yet Notes dysphagia if she eats at the wrong angle. PAST VISIT: She was taking 9 mg of Budesonide and decreased to 6 mg on 08/10/22. gets messed up when she goes down to 3 mg a day Does not have a BM daily - has a BM every 3 days. Has 3 to 5 BMs a day and also overnight (since she does not have a sphincter) Seen by an ano-rectal surgeon years ago - she was told that muscles around the sphincter are weak. Seen by a Urogynecologist (Sasha at [facility]) - and was advised to have an implant placed. Wears maxi pads for urinary and fecal incontinence. Has a UTI every time she has sex. Swallowing is a bit better - still chokes some time. Missed appt with Dr Davis and has to reschedule. Tested positive for COVID today - coughing, sneezing, CHAMORRO and throat pains. She has been talking to Rupesh Clancy - swallowing did not change after last EGD and dilation. Per pt - Dr Clancy has ordered a barium swallow and advised to take mesalamine with apple sauce. Planning to start taking Mesalamine in the next few days. Presently on a Budesonide taper - has a BM every 4 to 5 day.. No diarrhea on 9 mg and diarrhea starts when she decreases the dose to 6 mg and 3 mg. Feels gassy and has 1-2 episode of diarrhea [facility] Medical History (Updated 03/22/23 @ 07:45 by Anthony Amador MD) Anxiety Asthma, allergic Attention-deficit hyperactivity disorder, other type Borderline hypertension Chronic post-traumatic stress disorder (PTSD) Cognitive and neurobehavioral dysfunction following brain injury Collagenous colitis Depression Elevated cholesterol Generalized anxiety disorder History of colon polyps Major depressive disorder, recurrent episode, in partial remission with mixed features PTSD (post-traumatic stress disorder) Surgical History H/O: History of colonoscopy History of esophagogastroduodenoscopy (EGD) Hx laparoscopic cholecystectomy (~2005) Social History Household Members: Spouse and Children Household Members Other:: son 15 Alcohol intake: never Patient Tobacco Use Status: Never used Tobacco Second Hand Smoke Exposure: No Current occupational status: employed and unemployed Current occupation: [employer] [place] Review of Systems Const All systems reviewed & are unremarkable except as noted in HPI and below Physical Exam Vital Signs: Last Vital Signs Pulse 82 03/22/23 07:43 BP 122/74 03/22/23 07:43 BMI result Body Mass Index 39.5 Const General: healthy appearing and no acute distress Nutritional Appearance: obese Orientation/consciousness: patient oriented x3 Limitations: other limitations (wearing an ankle boot in the right foot) HEENT Head: Yes normal to inspection Ears: hearing grossly normal bilaterally Eyes Sclerae: sclerae normal Pupils: Equal, round and reactive pupils present Neck Neck: Yes normal visual inspection Chest Chest palpation & inspection: normal inspection of the chest Resp Effort & Inspection: normal respiratory effort Auscultation: clear to auscultation bilaterally Cardio Palpation: normal PMI Rate: regular rate Rhythm: regular rhythm Heart sounds: S1 normal heart sound present, S2 normal heart sound present and n o murmurs GI Inspection: Yes obesity Palpation (GI): Soft to palpation, nontender and No hepatosplenomegaly present Auscultation: normal bowel sounds Rectal Exam - Female: deferred Skin General skin exam: no rashes or lesions noted Neuro General: patient oriented x3, gait normal and moves all extremities Cranial nerves: Yes Equal, round and reactive pupils present Psych Appearance: grossly normal Mental Status: mental status grossly normal Assessment & Plan Assessment & Plan (1) Dysphagia, pharyngoesophageal phase: Comment: 12/2021 Barium swallow showed: Prominent moderate thickening of crico-esophageal sphincter moderately obstructing thick barium and barium-coated solid food during the exam. There is moderate barium/food retention in the piriform sinuses and mild retention in the valleculae which clears with subsequent 3 or 4 dry swallows and oral administration of water. Pt was referred to ENT Code(s): R13.14 - Dysphagia, pharyngoesophageal phase (2) Collagenous colitis: Comment: Budesonide for the past year, patient lost to follow-up- wean off budesonide Continue previous recommendations Low-fat diet, avoid caffeine and high sugared foods No NSAID Code(s): K52.831 - Collagenous colitis (3) Tubular adenoma of colon: Comment: Repeat asymptomatic colonoscopy 3 years Code(s): D12.6 - Benign neoplasm of colon, unspecified (4) History of colon polyps: Comment: 11/2020 adenomatous polyps removed. Due for a 3 yr FU colon in 11/2023 Code(s): Z86.010 - Personal history of colonic polyps Plan 57-year-old female followed in GI for dysphagia and collagenous colitis.? 01/02 Barium swallow showed?Prominent moderate thickening of cricoesophageal sphincter moderately obstructing thick barium and barium-coated solid food during the exam. There is moderate barium/food retention in the piriform sinuses and mild retention in the valleculae which clears with subsequent 3 or 4 dry swallows and oral administration of water. Pt was referred to ENT by KATYA Mccabe Treated with Budesonide for the collagenous colitis and notes recurrent diarrhea when she decreases Budesonide to 3 mg a day Has 3 to 5 BMs a day and also overnight (since she does not have a sphincter) Seen by an ano-rectal surgeon years ago - she was told that muscles around the sphincter are weak. Seen by a Urogynecologist (Sasha at [facility]) - and was advised to have an implant placed. Wears maxi pads for urinary and fecal incontinence. Missed appt with Dr Davis and has to reschedule. Pt was advised to stop mesalamine since it was not helpful and take cholestyramine twice daily and continue with budesonide taper 03/22/23 Taking Budesonide 3 mg every other day and if feeling stable every 3rd. Unable to decrease to every 3rd day. Takes a 9 mg tab in case of breakthrough symptoms (twice in the last 6 months) Has a BM 2 times a week. She would like to see the ? last greaser she saw 10 yrs ago for placement of an implantable device for treatment of fecal incontinence at [facility] Follow-up in 6 months. ADDENDUM: I contacted the Medical Records Dept at [facility]. They reviewed her records and told me that she was seen in [address] Caryn Mckeon who is a colorectal surgoeon at [facility] Pt advised to call Dr Mckeon's office and schedule a FU appt. Medical records will fax over her records. Coding Level of Care Code Est Pt Level 4 (57673) Diagnoses Dysphagia, pharyngoesophageal phase R13.14 Collagenous colitis K52.831 Tubular adenoma of colon D12.6 History of colon polyps Z86.010 Time Spent (min) 25
[2023-03-22 07:43] VITALS: BP 122/74; PULSE 82; BMI 39.5
== END 2023-03-22 08:15 | disposition home or self-care (01) ==
PROVIDERS: PCP Internal Medicine; Visit Provider Internal Medicine Gastroenterology
DX: R13.14 Dysphagia, pharyngoesophageal phase (principal); K52.831 Collagenous colitis; D12.6 Benign neoplasm of colon, unspecified; Z86.010 Personal history of colon polyps
CPT/HCPCS: 99213

== ENCOUNTER → 2023-03-22 07:11 | Outpatient (BNVA) | payer OTHER, SELFPAY | PROVIDERS: PCP Internal Medicine; Visit Provider Internal Medicine Gastroenterology ==

== ENCOUNTER 2023-03-23 13:20 | Outpatient (AMB) | payer OTHER, SELFPAY ==
[2023-03-23 13:35] VITALS: BP 128/86; PULSE 85; O2SAT 96; BMI 39.4
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
== END 2023-03-23 15:14 | disposition home or self-care (01) ==
LOC: HO.HSMS 13:20
PROVIDERS: PCP Internal Medicine; Visit Provider Nurse Practitioner Family
DX: F07.81 Postconcussional syndrome (principal); R06.83 Snoring; G47.19 Other hypersomnia; G47.9 Sleep disorder, unspecified
CPT/HCPCS: 99204

== ENCOUNTER → 2023-03-23 13:20 | Outpatient (BNVA) | payer OTHER, SELFPAY | PROVIDERS: PCP Internal Medicine; Visit Provider Nurse Practitioner Family | DX: G31.89 Other specified degenerative diseases of nervous system (principal); F09 Unspecified mental disorder due to known physiological condition; S06.9XAS Unspecified intracranial injury with loss of consciousness status unknown, sequela; F07.81 Postconcussional syndrome; G47.19 Other hypersomnia; F43.12 Post-traumatic stress disorder, chronic | CPT/HCPCS: 99202 ==

== ENCOUNTER 2023-03-23 20:00 | Outpatient (AMB) | payer OTHER, SELFPAY ==
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
== END 2023-03-23 20:01 | disposition home or self-care (01) ==
LOC: HO.HOP 20:01
PROVIDERS: PCP Internal Medicine; Visit Provider Psychiatry & Neurology Psychiatry
DX: G31.89 Other specified degenerative diseases of nervous system (principal); F09 Unspecified mental disorder due to known physiological condition; S06.9XAS Unspecified intracranial injury with loss of consciousness status unknown, sequela; F07.81 Postconcussional syndrome; G47.19 Other hypersomnia; F43.12 Post-traumatic stress disorder, chronic
CPT/HCPCS: 99214

== ENCOUNTER 2023-05-05 16:02 | Outpatient (AMB) | payer OTHER, SELFPAY ==
--- NOTE | 2023-05-05 16:02 | A.OFFVIS_ITS ---
Intake Intake Visit Reasons: 6wk follow up Post Concussion Syndrome - LVM Intake Note: Patient following up. Patient states I'm not currently driving so i couldn't make it to my sleep study test and I haven't rescheduled it yet Allergies ciprofloxacin [From CIPRO] Allergy (Intermediate, Verified 05/05/23 16:03) RASH Sulfa (Sulfonamide Antibiotics) [SULFA (SULFONAMIDE ANTIBIOTICS)] Allergy (Intermediate, Verified 05/05/23 16:03) RASH Medication List - Last Reconciled 05/05/23 by ATUL Gudino albuterol sulfate 90 mcg/actuation 0 mcg inhalation atorvastatin 20 mg PO budesonide 9 mg PO QAM 30 days budesonide ER 3 mg PO DAILY 60 days bupropion HCl 300 mg PO QAM clonazepam 0.5 mg PO DAILY PRN estradiol 0.01%(0.1mg/gram) vaginal losartan 25 mg PO DAILY magnesium oxide 400 mg PO BEDTIME 30 days methylphenidate HCl 20 mg PO TID propranolol 10 mg PO DAILY PRN riboflavin (vitamin B2) 400 mg PO DAILY 30 days sumatriptan succinate 50 - 100 mg orally at onset of headache, may repeat in 2 hrs PRN; max 2 tabs per day or 4 tabs/week (may take with Ibuprofen) 30 days venlafaxine ER 150 mg PO DAILY 90 days HPI HPI Comments History of Present Illness0 Details 57-yr-old female presents for f/u televideo visit via [employer]. She is having 4-5 of more severe headaches, and milder headaches other days as well. She started B2, but has not been able to take the Mag- as it is too big to swallow. Was wary to try Sumatriptan- d/t risk of s/e's. She is currently working w/ OT for vestibular, diplopia, dizziness s/s. She is still having dizziness. She has diplopia when she is tired. PT is on hold- pending clarification r/t a new non-work comp PT order s/p a fall- fell over a curb. She thinks that she is not managing her life as well- especially r/t executive functioning skills. She writes down appointments wrong. Having difficulty keeping things as organized. She states that her methylphenidate 20mg tid does not seem to help this- she wonders about stopping this. She states work comp has approved a neuro-psych eval but she would like to see someone other than Dr Gipson. She was not able to do the HST yesterday as scheduled d/t transportation issues. She is not currently driving. [facility] Medical History (Updated 05/05/23 @ 17:00 by ATUL Gudino) Anxiety Asthma, allergic Attention-deficit hyperactivity disorder, other type Borderline hypertension Chronic post-traumatic stress disorder (PTSD) Cognitive and neurobehavioral dysfunction following brain injury Collagenous colitis Depression Elevated cholesterol Generalized anxiety disorder History of colon polyps Major depressive disorder, recurrent episode, in partial remission with mixed features PTSD (post-traumatic stress disorder) Surgical History H/O: History of colonoscopy History of esophagogastroduodenoscopy (EGD) Hx laparoscopic cholecystectomy (~2005) Family History Father Alcoholism Lung cancer Mother Diabetes Dementia Hypercholesteremia Brother Diabetes insipidus Brother Asthma Social History Household Members: Spouse and Children Household Members Other:: son 15 Alcohol intake: never Patient Tobacco Use Status: Never used Tobacco Second Hand Smoke Exposure: No Current occupational status: employed and unemployed Current [place] [employer] [place] Review of Systems Const All systems reviewed & are unremarkable except as noted in HPI and below Physical Exam Const General: cooperative and no acute distress Orientation/consciousness: patient oriented x3 HEENT Head: Yes normocephalic Resp Effort & Inspection: normal respiratory effort and able to speak in complete sentences Neuro Other: Some mild dififculty follwoing conversation, needing information repeated. General: patient oriented x3 Psych Appearance: grossly normal Mental Status: mental status grossly normal Speech and movement: Clear speech present Affect: normal affect Attitude: cooperative Assessment & Plan Assessment & Plan (1) Postconcussive syndrome: Comment: s/p fall at work November 2022- vision, balance, gait, cognitive difficulties, and migraine phenotype headaches. Code(s): F07.81 - Postconcussional syndrome (2) Cognitive and neurobehavioral dysfunction following brain injury: Code(s): G31.89 - Other specified degenerative diseases of nervous system; F09 - Unspecified mental disorder due to known physiological condition; S06.9XAS - Unspecified intracranial injury with loss of consciousness status unknown, sequela Plan Pt advised to undergo HST- pt will reschedule For overall postconcussive syndrome management: Discussed importance of good self-care, including but not limited to maintaining a healthy diet, adequate fluid intake, adequate sleep, and engaging in regular physical activity. For headache triggers: Track headaches. Continue OT vestibular tx. PT when able. Concur w/ neuro-psych evaluation- will request w/ alternate clinical. I would defer to Dr Harp, however I advised pt that stopping her stimulant tx may exacerbate her post-concussive cognitive and possibly headache symptoms. Consider post-concussive cognitive tx. For acute headache treatment: Discussed importance of taking acute medications at the first sign of headache, however stressed importance of avoiding acute medication overuse (especially with combined headache medications). Again trial Sumatriptan 100mg tab, 1/2 - 1 tab (50-100mg) at onset of headache, may repeat in 2 hours. Max of 2 tabs (200mg) per 24 hours. May adjunct with OTC Tylenol 650mg q 4 hours, Ibuprofen 600mg q 6 hours, or Naproxen 440mg q 12 hrs prn. Previous acute tx trial- None Acute migraine medication contraindications: None at this time For headache prevention medication: Discussed that preventative medications should be taken routinely as prescribed for best effect, it may take several weeks for full effect to take effect. Continue Riboflavin 400mg qam Start OTC Magnesium 400-500mg qhs- may use powder form. Continue Venlafaxine ER per psychiatry Continue Propranolol- ordered for PTSD/anxiety- may help headaches as well. Previous preventative medication use: Previously may have tried nortriptyline- unsure effect. Migraine prevention medication contraindications: None Pt to follow-up in 2 months or sooner prn. Orders: Referrals Neuropsychiatry Referral F07.81 - Postconcussional syndrome, F09 - Unspecified mental disorder due to known physiological condition, G31.89 - Other specified degenerative diseases of nervous system, S06.9XAS - Unspecified intracranial injury with loss of consciousness status unknown, sequela Telehealth Telehealth Location of provider rendering services: practice address Location of patient: address on file Patient Identification confirmed using: Name, : Yes Telehealth method: video Patient verbally consented to treatment: Yes Patient verbally consented to billing insurance company: Yes Patient informed of any privacy concerns related to visit: Yes Minutes spent on Phone/Video with Pt.: 29 Coding Level of Care Code Tele Est Pt Level 4 (61882) Diagnoses Postconcussive syndrome F07.81 Cognitive and neurobehavioral dysfunction following brain injury G31.89; F09; S06.9XAS
== END 2023-05-06 14:42 | disposition home or self-care (01) ==
LOC: HO.HSMS 16:02
PROVIDERS: PCP Internal Medicine; Visit Provider Nurse Practitioner Family
DX: S06.9XAS Unspecified intracranial injury with loss of consciousness status unknown, sequela (principal); F07.81 Postconcussional syndrome; G31.89 Other specified degenerative diseases of nervous system; Z04.2 Encounter for examination and observation following work accident
CPT/HCPCS: 99214

== ENCOUNTER → 2023-05-05 16:02 | Outpatient (BNVA) | payer OTHER, SELFPAY | PROVIDERS: PCP Internal Medicine; Visit Provider Nurse Practitioner Family ==

== ENCOUNTER 2023-05-20 21:02 | Outpatient (AMB) | payer OTHER, SELFPAY ==
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
== END 2023-05-20 21:02 | disposition home or self-care (01) ==
LOC: HO.HOP 21:02
PROVIDERS: PCP Internal Medicine; Visit Provider Psychiatry & Neurology Psychiatry
DX: F09 Unspecified mental disorder due to known physiological condition (principal); G31.89 Other specified degenerative diseases of nervous system; H81.399 Other peripheral vertigo, unspecified ear; S06.9XAS Unspecified intracranial injury with loss of consciousness status unknown, sequela; G47.9 Sleep disorder, unspecified; G47.19 Other hypersomnia; F07.81 Postconcussional syndrome; F43.12 Post-traumatic stress disorder, chronic; F32.5 Major depressive disorder, single episode, in full remission
CPT/HCPCS: 99214

== ENCOUNTER → 2023-05-20 21:02 | Outpatient (BNVA) | payer OTHER, SELFPAY | PROVIDERS: PCP Internal Medicine; Visit Provider Psychiatry & Neurology Psychiatry ==

== ENCOUNTER 2023-07-07 16:54 | Outpatient (AMB) | payer OTHER, SELFPAY ==
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
== END 2023-07-07 17:36 | disposition home or self-care (01) ==
LOC: HO.HOP 16:54
PROVIDERS: PCP Internal Medicine; Visit Provider Psychiatry & Neurology Psychiatry
DX: F33.1 Major depressive disorder, recurrent, moderate (principal)
CPT/HCPCS: 99213

== ENCOUNTER → 2023-07-07 16:54 | Outpatient (BNVA) | payer OTHER, SELFPAY | PROVIDERS: PCP Internal Medicine; Visit Provider Psychiatry & Neurology Psychiatry ==

== ENCOUNTER 2023-07-22 12:31 | Outpatient (AMB) | payer OTHER, SELFPAY ==
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
== END 2023-07-22 12:32 | disposition home or self-care (01) ==
LOC: HO.HOP 12:31
PROVIDERS: PCP Internal Medicine; Visit Provider Psychiatry & Neurology Psychiatry
DX: F33.41 Major depressive disorder, recurrent, in partial remission (principal); G31.89 Other specified degenerative diseases of nervous system; F09 Unspecified mental disorder due to known physiological condition; S06.9XAS Unspecified intracranial injury with loss of consciousness status unknown, sequela; F43.12 Post-traumatic stress disorder, chronic
CPT/HCPCS: 99214

== ENCOUNTER → 2023-07-22 12:31 | Outpatient (BNVA) | payer OTHER, SELFPAY | PROVIDERS: PCP Internal Medicine; Visit Provider Psychiatry & Neurology Psychiatry ==

== ENCOUNTER 2023-08-18 17:09 | Outpatient (AMB) | payer OTHER, SELFPAY ==
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
== END 2023-08-18 17:10 | disposition home or self-care (01) ==
LOC: HO.HOP 17:09
PROVIDERS: PCP Internal Medicine; Visit Provider Psychiatry & Neurology Psychiatry
DX: G31.89 Other specified degenerative diseases of nervous system (principal); F09 Unspecified mental disorder due to known physiological condition; S06.9XAS Unspecified intracranial injury with loss of consciousness status unknown, sequela; F43.12 Post-traumatic stress disorder, chronic; F32.5 Major depressive disorder, single episode, in full remission
CPT/HCPCS: 90833; 99213

== ENCOUNTER → 2023-08-18 17:09 | Outpatient (BNVA) | payer OTHER, SELFPAY | PROVIDERS: PCP Internal Medicine; Visit Provider Psychiatry & Neurology Psychiatry ==

== ENCOUNTER 2023-08-26 12:52 | Outpatient (AMB) | payer OTHER, SELFPAY ==
--- NOTE | 2023-08-26 12:52 | A.OFFVIS_ITS ---
Intake Intake Visit Reasons: Follow up - Confirmed Intake Note: Patient presents for follow up. Allergies ciprofloxacin [From CIPRO] Allergy (Intermediate, Verified 08/26/23 12:53) RASH Sulfa (Sulfonamide Antibiotics) [SULFA (SULFONAMIDE ANTIBIOTICS)] Allergy (Intermediate, Verified 08/26/23 12:53) RASH Medication List - Last Reconciled 08/26/23 by ATUL Gudino albuterol sulfate 90 mcg/actuation 0 mcg inhalation atorvastatin 20 mg PO budesonide ER 3 mg PO DAILY 60 days budesonide ER 6 mg PO DAILY 30 days bupropion HCl 300 mg PO QAM clonazepam 0.5 mg PO DAILY PRN estradiol 0.01%(0.1mg/gram) vaginal losartan 25 mg PO DAILY magnesium oxide 400 mg PO BEDTIME 30 days methylphenidate HCl 20 mg PO TID propranolol 10 mg PO DAILY PRN riboflavin (vitamin B2) 400 mg PO DAILY 30 days sumatriptan succinate 50 - 100 mg orally at onset of headache, may repeat in 2 hrs PRN; max 2 tabs per day or 4 tabs/week (may take with Ibuprofen) 30 days venlafaxine ER 150 mg PO BID HPI HPI Comments History of Present Illness Details 58-yr-old female presents for f/u televi marly visit via [employer]. Pt endorses the following interval medical history changes: Her psychiatrist her Venalfaxine dose to 300mg as she was having + SI. She is being referred for a partial day program next month. Since this increase, she is feeling a bit better. Better able to get OOB in the am, better motivation. She is having 4 migraine headaches per week- Sumatriptan is helpful. She continues to have dizziness- lightheaded, not right in space, and nausea. She is still prone to tripping and stumbling. No recent falls. She is still not driving d/t the dizziness s/s. 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 She cannot do the HST until after the 1st of the year- d/t her primary insurance stopped. [facility] Medical History (Updated 08/26/23 @ 21:19 by ATUL Gudino) Chronic post-traumatic stress disorder (PTSD) Attention-deficit hyperactivity disorder, other type Cognitive and neurobehavioral dysfunction following brain injury Generalized anxiety disorder Major depressive disorder, recurrent episode, in partial remission with mixed features Collagenous colitis Depression PTSD (post-traumatic stress disorder) Anxiety Asthma, allergic Borderline hypertension Elevated cholesterol History of colon polyps Surgical History (System 07/15/23 @ 13:49 by Natalie Sutton) History of esophagogastroduodenoscopy (EGD) Hx laparoscopic cholecystectomy (~2005) H/O: History of colonoscopy Family History Father Alcoholism Lung cancer Mother Diabetes Dementia Hypercholesteremia Brother Diabetes insipidus Brother Asthma Social History (System 07/15/23 @ 13:49 by Natalie Sutton) Household Members: Spouse and Children Household Members Other:: son 15 Alcohol intake: never Patient Tobacco Use Status: Never used Tobacco Second Hand Smoke Exposure: No Current occupational status: employed and unemployed Current occupation: [employer] [place] Review of Systems Const All systems reviewed & are unremarkable except as noted in HPI and below Physical Exam Const General: cooperative and no acute distress Orientation/consciousness: patient oriented x3 HEENT Head: Yes normocephalic Resp Effort & Inspection: normal respiratory effort and able to speak in complete sentences Neuro Other: Photophobic General: patient oriented x3 Cognition (Neuro): normal cognition Psych Appearance: grossly normal Mental Status: mental status grossly normal Speech and movement: Normal speech and movement present Affect: normal affect Attitude: cooperative Assessment & Plan Assessment & Plan (1) Postconcussive syndrome: Comment: s/p fall at work November 2022- vision, balance, gait, cognitive difficulties, and migraine phenotype headaches. Code(s): F07.81 - Postconcussional syndrome (2) Difficulty balancing: Code(s): R29.818 - Other symptoms and signs involving the nervous system (3) Peripheral vertigo, unspecified: Code(s): H81.399 - Other peripheral vertigo, unspecified ear (4) Cognitive and neurobehavioral dysfunction following brain injury: Code(s): G31.89 - Other specified degenerative diseases of nervous system; F09 - Unspecified mental disorder due to known physiological condition; S06.9XAS - Un specified intracranial injury with loss of consciousness status unknown, sequela (5) Migraine without aura: Comment: post-traumatic Code(s): G43.009 - Migraine without aura, not intractable, without status migrainosus Plan For overall postconcussive syndrome management: Discussed importance of good self-care, including but not limited to maintaining a healthy diet, adequate fluid intake, adequate sleep, and engaging in regular physical activity. For headache triggers: Track headaches. Will f/u on obtaining correct work com info to request approval for OT for vestibular eval & tx and PT for gait eval & tx.. Concur w/ neuro-psych evaluation- will request w/ alternate clinical. Consider post-concussive cognitive tx. ? For acute headache treatment: Continue Sumatriptan 100mg tab, 1/2 - 1 tab (50-100mg) at onset of headache, may repeat in 2 hours. Max of 2 tabs (200mg) per 24 hours. May adjunct with OTC Tylenol 650mg q 4 hours, Ibuprofen 600mg q 6 hours, or Naproxen 440mg q 12 hrs prn. Previous acute tx trial- None Acute migraine medication contraindications: None at this time ? For headache prevention medication: Discussed that preventative medications should be taken routinely as prescribed for best effect, it may take several weeks for full effect to take effect. Start Emgality 240mg sc x's 1 , then 120mg sc q month. Continue Riboflavin 400mg qam Continue Magnesium 400-500mg qhs. Continue Venlafaxine ER per psychiatry Continue Propranolol- ordered for PTSD/anxiety- may help headaches as well. Previous other preventative medication use: Previously may have tried nortriptyline- unsure effect. Migraine prevention medication contraindications: Aimovig d/t GI s/s. Pt advsied to abstain from work through f/u visit. ? Pt to follow-up in 3 months or sooner prn. Medications: New galcanezumab-gnlm (Emgality Pen) 240mg x's 1 for loading dose, then 120mg sc q month subcutaneously once; 30 days 2 mL 6RF Changed From venlafaxine ER 150 mg PO BID 90 days 180 caps 1RF To venlafaxine ER takes 300mg 1 X day 150 mg PO BID Refilled magnesium oxide may hold for loose stools 400 mg PO BEDTIME 30 days 30 tabs 6RF sumatriptan succinate (0.5 - 1 x 100 mg) 50 - 100 mg orally at onset of headache, may repeat in 2 hrs PRN; max 2 tabs per day or 4 tabs/week (may take with Ibuprofen) 30 days 12 tabs 6RF migraine headache riboflavin (vitamin B2) 400 mg PO DAILY 30 days 30 tabs 6RF Telehealth Telehealth Location of provider rendering services: practice address Location of patient: address on file Patient Identification confirmed using: Name, : Yes Telehealth method: video Patient verbally consented to treatment: Yes Patient verbally consented to billing insurance company: Yes Patient informed of any privacy concerns related to visit: Yes Minutes spent on Phone/Video with Pt.: 35 Coding Level of Care Code Tele Est Pt Level 4 (42506) Diagnoses Postconcussive syndrome F07.81 Difficulty balancing R29.818 Peripheral vertigo, unspecified H81.399 Cognitive and neurobehavioral dysfunction following brain injury G31.89; F09; S06.9XAS Migraine without aura G43.009
== END 2023-08-27 08:37 | disposition home or self-care (01) ==
LOC: HO.HSMS 12:52
PROVIDERS: PCP Internal Medicine; Visit Provider Nurse Practitioner Family
DX: S06.9XAS Unspecified intracranial injury with loss of consciousness status unknown, sequela (principal); F07.81 Postconcussional syndrome; G44.309 Post-traumatic headache, unspecified, not intractable; G31.89 Other specified degenerative diseases of nervous system; Z04.2 Encounter for examination and observation following work accident; H81.399 Other peripheral vertigo, unspecified ear; R26.81 Unsteadiness on feet
CPT/HCPCS: 99214

== ENCOUNTER → 2023-08-26 12:52 | Outpatient (BNVA) | payer OTHER, SELFPAY | PROVIDERS: PCP Internal Medicine; Visit Provider Nurse Practitioner Family ==

== ENCOUNTER 2023-12-24 15:03 | Outpatient (AMB) | payer OTHER, SELFPAY ==
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
== END 2023-12-24 16:00 ==
LOC: HO.HSMS 15:03
PROVIDERS: PCP Internal Medicine; Visit Provider Nurse Practitioner Family
DX: G31.89 Other specified degenerative diseases of nervous system (principal); R41.89 Other symptoms and signs involving cognitive functions and awareness; S06.9XAS Unspecified intracranial injury with loss of consciousness status unknown, sequela; F07.81 Postconcussional syndrome
CPT/HCPCS: 99214

== ENCOUNTER → 2023-12-24 15:03 | Outpatient (BNVA) | payer OTHER, SELFPAY | PROVIDERS: PCP Internal Medicine; Visit Provider Nurse Practitioner Family ==

== ENCOUNTER 2023-12-29 13:57 | Outpatient (REF) | payer OTHER, SELFPAY ==
--- NOTE | ~2023-12-29 | MM_ITS ---
EXAMINATION: MM SCREENING DIGITAL BREAST TOMOSYNTHESIS, BILATERAL CLINICAL INFORMATION: Screening. Asymptomatic. COMPARISON: Mammography: This study is compared with prior exams dating back to 2017. TECHNIQUE: Digital breast tomosynthesis is performed in both the craniocaudal and mediolateral oblique views along with computer-aided detection (CAD). Synthesized 2D images are generated from the tomosynthesis. FINDINGS: The breasts are almost entirely fatty (ACR BI-RADS breast composition Category a). There are no significant masses, abnormal calcifications, or other abnormalities. MM/MM tomosynthesis screening BI IMPRESSION: No mammographic evidence of malignancy. ASSESSMENT: BI-RADS BI-RADS 1 - Negative RECOMMENDATION: Routine annual mammography screening. 1 year F/U This examination should not preclude the clinical evaluation of a suspicious palpable abnormality. This patient's information was entered into a reminder system with a target due date for their next mammogram.
== END 2023-12-29 13:58 | disposition home or self-care (01) ==
LOC: HO.MAMMO 13:57
PROVIDERS: PCP Internal Medicine; Visit Provider Internal Medicine
DX: Z12.31 Encounter for screening mammogram for malignant neoplasm of breast (principal)
CPT/HCPCS: 77063; 77067

== ENCOUNTER → 2023-12-29 14:00 | Outpatient (BNV) | payer OTHER, SELFPAY | PROVIDERS: PCP Internal Medicine; Visit Provider Radiology Diagnostic Radiology | DX: Z12.31 Encounter for screening mammogram for malignant neoplasm of breast (principal) | CPT/HCPCS: 77063; 77067 ==

== ENCOUNTER 2024-01-04 15:08 | Outpatient (AMB) | payer OTHER, SELFPAY ==
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
== END 2024-01-04 15:09 | disposition home or self-care (01) ==
LOC: HO.HOP 15:08
PROVIDERS: PCP Internal Medicine; Visit Provider Psychiatry & Neurology Psychiatry
DX: F33.9 Major depressive disorder, recurrent, unspecified (principal); G31.89 Other specified degenerative diseases of nervous system; F09 Unspecified mental disorder due to known physiological condition; S06.9XAS Unspecified intracranial injury with loss of consciousness status unknown, sequela; F43.12 Post-traumatic stress disorder, chronic
CPT/HCPCS: 90833; 99213

== ENCOUNTER → 2024-01-04 15:08 | Outpatient (BNVA) | payer OTHER, SELFPAY | PROVIDERS: PCP Internal Medicine; Visit Provider Psychiatry & Neurology Psychiatry ==

== ENCOUNTER 2024-04-05 19:00 | Outpatient (AMB) | payer OTHER, SELFPAY ==
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
== END 2024-04-05 19:06 | disposition home or self-care (01) ==
LOC: HO.HOP 19:00
PROVIDERS: PCP Internal Medicine; Visit Provider Psychiatry & Neurology Psychiatry
DX: F33.9 Major depressive disorder, recurrent, unspecified (principal); F07.81 Postconcussional syndrome; F43.12 Post-traumatic stress disorder, chronic
CPT/HCPCS: 90833; 99213

== ENCOUNTER → 2024-04-05 19:00 | Outpatient (BNVA) | payer OTHER, SELFPAY | PROVIDERS: PCP Internal Medicine; Visit Provider Psychiatry & Neurology Psychiatry ==

== ENCOUNTER 2024-05-10 14:45 | Outpatient (AMB) | payer OTHER, SELFPAY ==
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
== END 2024-05-10 15:59 | disposition home or self-care (01) ==
LOC: HO.HOP 14:45
PROVIDERS: PCP Internal Medicine; Visit Provider Psychiatry & Neurology Psychiatry
DX: F33.9 Major depressive disorder, recurrent, unspecified (principal); F43.12 Post-traumatic stress disorder, chronic; F90.8 Attention-deficit hyperactivity disorder, other type; G31.89 Other specified degenerative diseases of nervous system; F09 Unspecified mental disorder due to known physiological condition; S06.9XAS Unspecified intracranial injury with loss of consciousness status unknown, sequela
CPT/HCPCS: 90833; 99213

== ENCOUNTER → 2024-05-10 14:45 | Outpatient (BNVA) | payer OTHER, SELFPAY | PROVIDERS: PCP Internal Medicine; Visit Provider Psychiatry & Neurology Psychiatry ==

== ENCOUNTER 2024-06-07 08:15 | Outpatient (RCR) | payer OTHER, SELFPAY ==
[2024-05-25 13:11] VITALS: BP 116/62; PULSE 84; TEMP 36.7
[2024-05-25 13:14] VITALS: BMI 38.0
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
--- NOTE | 2024-05-25 14:05 | PC.NURSE ---
Jaycee stated she is not going to be here tomorrow 05/26/24 as she has a family obligation.
--- NOTE | 2024-05-25 15:38 | HO.PHP ---
Client's case has been opened and reviewed in team.
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
[2024-05-30 06:16] LABS: Amphetamine Screen Urine Not Detected (Not Detect); Barbiturates, Urine Not Detected (Not Detect); Benzodiazepines Screen Urine Not Detected (Not Detect); Buprenorphine Scr Not Detected (Not Detect); Cannabinoid Screen Urine Not Detected (Not Detect); Cocaine Screen Urine Not Detected (Not Detect); Fentanyl, urine Not Detected (Not Detect); Methadone Screen, Urine Not Detected (Not Detect); Opiate Screen Urine Not Detected (Not Detect); Oxycodone Screen Urine Not Detected (Not Detect); Phencyclidine Screen Urine Not Detected (Not Detect)
--- NOTE | 2024-05-30 21:50 | HO.PHPPROGNO ---
Subjective Subjective Date of Service: 05/30/24 Reason For Visit: depression,anxiety Diagnostics Vital Signs (24Hr): BMI result Body Mass Index 38.0 Labs Labs: Laboratory Results - last 48 hr 05/25/24 13:49 Urine Opiates Screen Not Detected Ur Buprenorphine Scrn Not Detected Ur Oxycodone Screen Not Detected Urine Methadone Screen Not Detected Urine Fentanyl Screen Not Detected Ur Barbiturates Screen Not Detected Ur Phencyclidine Scrn Not Detected Ur Amphetamines Screen Not Detected U Benzodiazepines Scrn Not Detected Urine Cocaine Screen Not Detected U Marijuana (THC) Screen Not Detected Assessment & Plan Assessment & Plan (1) Chronic post-traumatic stress disorder (PTSD): Status: Acute Code(s): F43.12 - Post-traumatic stress disorder, chronic (2) Generalized anxiety disorder: Status: Acute Code(s): F41.1 - Generalized anxiety disorder (3) Major depressive disorder, recurrent episode, in partial remission with mixed features: Status: Acute Code(s): F33.41 - Major depressive disorder, recurrent, in partial remission (4) Cognitive and neurobehavioral dysfunction following brain injury: Status: Acute Code(s): G31.89 - Other specified degenerative diseases of nervous system; F09 - Unspecified mental disorder due to known physiological condition; S06.9XAS - Unspecified intracranial injury with loss of consciousness status unknown, sequela (5) Attention-deficit hyperactivity disorder, other type: Status: Acute Code(s): F90.8 - Attention-deficit hyperactivity disorder, other type Plan continue prazosin 1 mg qd-bid as directed move Wellbutrin XL 300 mg from qHS to QAM cont Concerta 54 mg qam cont venlafaxine ER 300 mg qd cont clonazepam 0.5 mg qd prn anxiety cont sumatriptan succinate 100 mg qd cont atorvastatin 20 mg qd cont losartan 25 mg qd cont fluticasone inhaler BID cont budesonide er 3 mg qd cont albuterol inhaler cont magnesium oxide 400 mg qhs cont vitamin B2 400 mg qd patient reminded to f/u with getting routine lab work done EKG, routine for baseline QTc for medication considerations Continue to monitor Certification I certify that partial hospital treatment is medically necessary due to the symptoms and problems resulting from the patient's mental illness and the failure to treat the patient at the partial hospital level of care would likely result in the patient requiring inpatient psychiatric care which could not be prevented at a less intensive level of care. Total time managing care of this patient today ____ minutes. Discharge Plan Discharge Attending provider: Cheri Martinez Medications: New prazosin 1 mg capsule 1 - 2 mg PO DAILY Qty: 20 0RF No Action riboflavin (vitamin B2) 400 mg tablet 400 mg PO DAILY 30 Days Qty: 30 6RF magnesium oxide 400 mg (241.3 mg magnesium) tablet 400 mg PO BEDTIME 30 Days Qty: 30 6RF Rx Instructions: may hold for loose stools budesonide 3 mg capsule,delayed,extend.release 3 mg PO DAILY Qty: 60 2RF clonazepam 0.5 mg tablet 0.5 mg PO DAILY PRN (Reason: anxiety) Qty: 30 1RF Patient Comments: Patient stated she last took 3 weeks ago. Rx Instructions: Last filled 02/10/24 bupropion HCl 300 mg tablet extended release 24 hr 300 mg PO QAM Qty: 90 0RF Patient Comments: Patient stated Dr Harp is aware she is taking at HS. venlafaxine 150 mg capsule,extended release 24hr 300 mg PO DAILY Rx Instructions: takes 300mg 1 X day losartan 25 mg tablet 25 mg PO DAILY fluticasone propion-salmeterol 100-50 mcg/dose blister with device 1 ea inhalation BID atorvastatin 20 mg tablet 20 mg PO DAILY albuterol sulfate 90 mcg/actuation HFA aerosol inhaler 2 puff inhalation QID PRN (Reason: Wheezing) sumatriptan succinate 100 mg tablet 50 - 100 mg PO .COMPLEX PRN (Reason: migraine headache) 30 Days Qty: 12 6RF Rx Instructions: 50 - 100 mg orally at onset of headache, may repeat in 2 hrs PRN; max 2 tabs per day or 4 tabs/week (may take with Ibuprofen) buspirone 15 mg tablet 15 mg PO BID Qty: 60 2RF methylphenidate HCl [Concerta] 54 mg tablet extended release 24hr 54 mg PO DAILY 60 Days Qty: 60 0RF Rx Instructions: Partial Fill upon patient request. Stand Alone Forms: Patient Portal Discharge page Print Language: Luxembourgish
[2024-05-31 13:13] VITALS: BP 122/77; PULSE 80
[2024-06-06 11:53] VITALS: BP 114/72; PULSE 80
--- NOTE | 2024-06-06 21:25 | P.PNPSP_ITS ---
Subjective Subjective Date of Service: 06/06/24 Reason For Visit: depression,anxiety Interim History: Patient seen for follow-up, anticipating discharge at the end of program today.? Reports no acute issues or concerns. Medication compliant, medications well- tolerated. Denies any adverse effects.? Mood is stable.? Denies any hopelessness or SI. Denies thoughts of harming self or others at this time. Denies any aggressive ideation or HI. Denies any paranoia or AH or VH. Sleep, appetite, energy stable. Alert, oriented, in no acute distress. Calm, cooperative. Mood stable, affect appropriate. Speech normal. Thought process linear, coherent, more goal- directed. Thought content related to stressors, future-oriented, denies any helplessness, hopelessness or SI.? No aggressive ideation or HI. No paranoia or delusional content elicited. No evidence of psychosis. Insight and judgment f air-good. Discharge from [facility] Continue regular medications Refills sent to pharmacy Will defer further medication management to outpatient provider *Safety plan reviewed *Discharge diagnoses, treatment course, discharge plan have been reviewed with patient (including medication regime, medication management, potential side effects) as well as treatment rationale were also revisited *Discharge paperwork signed and given to patient, copy sent for scanning to chart Diagnostics Vital Signs (24Hr): Vital Signs - 24 hr 06/06/24 11:53 Pulse Rate 80 Blood Pressure 114/72 BMI result Body Mass Index 38.0 Assessment & Plan Assessment & Plan (1) Chronic post-traumatic stress disorder (PTSD): Status: Acute Code(s): F43.12 - Post-traumatic stress disorder, chronic (2) Generalized anxiety disorder: Status: Acute Code(s): F41.1 - Generalized anxiety disorder (3) Major depressive disorder, recurrent episode, in partial remission with mixed features: Status: Acute Code(s): F33.41 - Major depressive disorder, recurrent, in partial remission (4) Cognitive and neurobehavioral dysfunction following brain injury: Status: Acute Code(s): G31.89 - Other specified degenerative diseases of nervous system; F09 - Unspecified mental disorder due to known physiological condition; S06.9XAS - Unspecified intracranial injury with loss of consciousness status unknown, sequela (5) Attention-deficit hyperactivity disorder, other type: Status: Acute Code(s): F90.8 - Attention-deficit hyperactivity disorder, other type Plan Discharge from [facility] tomorrow cont prazosin at 2 mg qhs as directed start risperidone 0.25 mg qd-bid prn agitation cont Wellbutrin XL 300 mg QAM cont Concerta 54 mg qam cont venlafaxine ER 300 mg qd cont clonazepam 0.5 mg qd prn anxiety cont sumatriptan succinate 100 mg qd cont atorvastatin 20 mg qd cont losartan 25 mg qd cont fluticasone inhaler BID cont budesonide er 3 mg qd cont albuterol inhaler cont magnesium oxide 400 mg qhs cont vitamin B2 400 mg qd pending lab work - will follow with patient once labs results back otherwise will defer to Patient educated on: diagnosis and medication risk/benefits Informed Consent: understands Reason for contiued partial hosp. stay Substantial Risk for: stable for discharge Certification I certify that partial hospital treatment is medically necessary due to the symptoms and problems resulting from the patient's mental illness and the failure to treat the patient at the partial hospital level of care would likely result in the patient requiring inpatient psychiatric care which could not be prevented at a less intensive level of care. Total time managing care of this patient today __30__ minutes. Discharge Plan Discharge Attending provider: Cheri Martinez Medications: New prazosin 2 mg capsule 2 mg PO BEDTIME Qty: 30 0RF Continued riboflavin (vitamin B2) 400 mg tablet 400 mg PO DAILY 30 Days Qty: 30 6RF magnesium oxide 400 mg (241.3 mg magnesium) tablet 400 mg PO BEDTIME 30 Days Qty: 30 6RF Rx Instructions: may hold for loose stools budesonide 3 mg capsule,delayed,extend.release 3 mg PO DAILY Qty: 60 2RF clonazepam 0.5 mg tablet 0.5 mg PO DAILY PRN (Reason: anxiety) Qty: 30 1RF Patient Comments: Patient stated she last took 3 weeks ago. Rx Instructions: Last filled 02/10/24 bupropion HCl 300 mg tablet extended release 24 hr 300 mg PO QAM Qty: 90 0RF Patient Comments: Patient stated Dr Harp is aware she is taking at HS. venlafaxine 150 mg capsule,extended release 24hr 300 mg PO DAILY Rx Instructions: takes 300mg 1 X day losartan 25 mg tablet 25 mg PO DAILY fluticasone propion-salmeterol 100-50 mcg/dose blister with device 1 ea inhalation BID atorvastatin 20 mg tablet 20 mg PO DAILY albuterol sulfate 90 mcg/actuation HFA aerosol inhaler 2 puff inhalation QID PRN (Reason: Wheezing) sumatriptan succinate 100 mg tablet 50 - 100 mg PO .COMPLEX PRN (Reason: migraine headache) 30 Days Qty: 12 6RF Rx Instructions: 50 - 100 mg orally at onset of headache, may repeat in 2 hrs PRN; max 2 tabs per day or 4 tabs/week (may take with Ibuprofen) buspirone 15 mg tablet 15 mg PO BID Qty: 60 2RF No Action methylphenidate HCl [Concerta] 54 mg tablet extended release 24hr 54 mg PO DAILY 60 Days Qty: 60 0RF Rx Instructions: Partial Fill upon patient request. Stand Alone Forms: Patient Portal Discharge page Patient Education: Depression (DC) Print Language: South Korean
--- NOTE | 2024-06-08 13:52 | PC.NURSE ---
Dr. Tiwari reviewed patient lab results completed on 06/07/24. Lab results faxed to patient's PCP Dr. Christina Marin's office. Spoke to Luciana from PCP's office to confirm that they received the results. Luciana was not sure at this time if the results were received. Luciana put in a message for a nurse in the office to call me back to review results per my request. Awaiting phone call.
--- NOTE | 2024-06-09 14:42 | PC.NURSE ---
I called Jaycee's PCP's office of Dr Christina Marin to f/u with lab results that I faxed to the office. I spoke to Emilee who stated they did receive the Lab results and the doctor reviewed the results and will be reaching out to the patient regarding the results.
== END 2024-06-07 23:59 | disposition home or self-care (01) ==
LOC: HO.PHPA 08:15
PROVIDERS: Visit Provider Psychiatry & Neurology Psychiatry
DX: F43.12 Post-traumatic stress disorder, chronic (principal); F41.1 Generalized anxiety disorder; F33.41 Major depressive disorder, recurrent, in partial remission; G31.89 Other specified degenerative diseases of nervous system; F09 Unspecified mental disorder due to known physiological condition; S06.9XAS Unspecified intracranial injury with loss of consciousness status unknown, sequela; F90.8 Attention-deficit hyperactivity disorder, other type; Z79.899 Other long term (current) drug therapy
CPT/HCPCS: 80307; 90791; 90853

== ENCOUNTER → 2024-06-07 08:15 | Outpatient (BNV) | payer SELFPAY | PROVIDERS: Visit Provider Psychiatry & Neurology Psychiatry | DX: F43.12 Post-traumatic stress disorder, chronic (principal); F41.1 Generalized anxiety disorder; F33.41 Major depressive disorder, recurrent, in partial remission; G31.89 Other specified degenerative diseases of nervous system; F09 Unspecified mental disorder due to known physiological condition; S06.9XAS Unspecified intracranial injury with loss of consciousness status unknown, sequela; F90.8 Attention-deficit hyperactivity disorder, other type | CPT/HCPCS: 90792; 99213 ==

== ENCOUNTER 2024-06-07 08:26 | Outpatient (REF) | payer OTHER, SELFPAY ==
--- NOTE | 2024-06-07 08:33 | ECG_ITS ---
Test Reason : R/O QTC PRLONGATION F33.9 F41.9 D64.9 Blood Pressure : / mmHG Vent. Rate : 078 BPM Atrial Rate : 078 BPM P-R Int : 154 ms QRS Dur : 090 ms QT Int : 380 ms P-R-T Axes : 040 004 054 degrees QTc Int : 433 ms Normal sinus rhythm Normal ECG When compared with ECG of 29-APR-2022 07:53, No significant change was found Referred By: Cheri Martinez Electronically Signed By:JOHAN BEE
[2024-06-07 08:56] LABS: MANUAL DIFF FLAG NO
[2024-06-07 09:33] LABS: Basophils Absolute Auto 0.1 X10*3/uL (0.0-0.2); Basophils Percent Auto 1.1 % (0-2); Eosinophils Absolute Auto 0.3 X10*3/uL (0.0-0.4); Eosinophils Percent Auto 6.8 % (0-4); Hematocrit 36.6 % (37.0-47.0); Imm Gran Abs Auto 0.04 X10*3/uL (0.00-0.03); Imm Gran Pct Auto 0.9 % (0.0-0.4); Immature Retic Fraction 13.3 % (3.0-15.9); Lymphocytes Percent Auto 42.1 % (20-40); Mean Corpuscular HGB Conc 32.8 g/dl (31.0-35.0); Mean Corpuscular Hemoglobin 29.4 pg (27.0-33.0); Mean Corpuscular Volume 89.7 fL (80.0-98.0); Mean Platelet Volume 9.3 fL (9.4-12.3); Monocytes Absolute Auto 0.4 X10*3/uL (0.1-1.2); Monocytes Percent Auto 7.7 % (2-11); Neutrophils Percent Auto 41.4 % (45-73); Platelet Count 279 X10*3/uL (160-400); Red Blood Count 4.08 X10*6/uL (4.20-5.50); Red Cell Distribution Width 14.7 % (11.0-16.0); Retic HGB Equivalent 32.6 pg (30.0-35.0); Reticulocyte Percent 1.9 % (0.5-1.8); Reticulocytes Absolute 0.077 X10*6/uL (0.026-0.095); White Blood Count 4.7 X10*3/uL (4.8-10.8)
[2024-06-07 09:38] LABS: Estimated Average Glucose 123 mg/dL; Hemoglobin A1c % 5.9 % (<6.0)
[2024-06-07 09:41] LABS: INTERNATIONAL NORM RATIO 0.9 (0.9-1.1); Prothrombin Time 10.2 SEC (10.9-12.4)
[2024-06-07 10:01] LABS: Parathyroid Hormone Intact 70.1 pg/mL (8.7-77.1)
[2024-06-07 10:10] LABS: Erythrocyte Sedimentation Rate 25 MM/HR (0-20)
[2024-06-07 10:11] LABS: Alanine Aminotransferase 44 U/L (0-31); Albumin Level 3.9 g/dL (3.5-5.0); Alkaline Phosphatase 106 U/L (39-117); Anion Gap 11 (12-20); Aspartate Amino Transferase 32 U/L (5-31); Bilirubin Total 0.3 mg/dL (0.0-1.0); Blood Urea Nitrogen 26 mg/dL (9-16); C Reactive Protein 0.52 mg/dL (< or = 0.50); Calcium 9.7 mg/dL (8.4-10.2); Carbon Dioxide 28 mmol/L (22-29); Chloride 107 mmol/L (96-108); Cholesterol 209 mg/dL (<200); Estimated Glomerular Filt Rate 38; Gamma Glutamyl Transpeptidase 56 U/L (7-33); Glucose Fasting 135 mg/dL (60-99); HDL Cholesterol 50 mg/dL (>40); Iron 55 mcg/dL (30-160); LDL Cholesterol Calculated 122 mg/dL (<100); Percent Iron Saturation 20 % (15-50); Phosphorus 3.9 mg/dL (2.7-4.5); Sodium 142 mmol/L (135-145); Total Iron Binding Capacity 269 mcg/dL (228-428); Total Protein 7.1 g/dL (6.5-8.0); Triglycerides 188 mg/dL (<150); Unsaturated Iron Binding 214 ug/dL
[2024-06-07 10:14] LABS: Ferritin 53 ng/mL (10-250); Free T4 (Free Thyroxine) 1.01 ng/dL (0.71-1.85); Thyroid Stimulating Hormone 2.66 uIU/mL (0.32-4.0); Vitamin D 25-OH Total 33.8 ng/mL (>30)
[2024-06-07 10:16] LABS: HIV AB/AG Nonreactive (Nonreactive); HIV Num 1 0.04 S/CO (0.00-0.99)
[2024-06-07 10:32] LABS: Folate 13.7 ng/mL (> or = 4.0); Vitamin B12 520 pg/mL (200-900)
[2024-06-08 18:09] LABS: Homocysteine 16.5 umol/L (<10.4)
[2024-06-10 07:33] LABS: Methylmalonic Acid 367 nmol/L (55-335)
[2024-06-14 06:09] LABS: Vitamin B1 7 nmol/L (8-30)
[2024-06-14 13:53] LABS: Nicotinamide 20 ng/mL (see note); Vit B3 - Nicotinic Acid <20 ng/mL (see note)
== END 2024-06-07 08:27 | disposition home or self-care (01) ==
LOC: HO.LAB 08:26
PROVIDERS: Visit Provider Psychiatry & Neurology Psychiatry
DX: F33.9 Major depressive disorder, recurrent, unspecified (principal); F41.9 Anxiety disorder, unspecified; D64.9 Anemia, unspecified; Z79.01 Long term (current) use of anticoagulants; Z13.1 Encounter for screening for diabetes mellitus
CPT/HCPCS: 36415; 80053; 80061; 82306; 82607; 82728; 82746; 82977; 83036; 83090; 83540; 83921; 83970; 84100; 84425; 84439; 84443; 84591; 85025; 85045; 85610; 85652; 86140; 87389; 93005

== ENCOUNTER → 2024-08-04 13:58 | Outpatient (BNV) | payer OTHER, SELFPAY | PROVIDERS: Visit Provider Clinical Nurse Specialist Psychiatric/Mental Health | DX: F33.2 Major depressive disorder, recurrent severe without psychotic features (principal) | CPT/HCPCS: 99213 ==

== ENCOUNTER 2024-09-21 11:19 | Outpatient (AMB) | payer OTHER, SELFPAY ==
--- OUTSIDE RECORDS SUMMARY | 2024-09-21 11:59 | XMS_ITS | Continuity of Care Document ---
Author Organization [facility] Address [address] [place] [address]- Support Name Relationship Address Phone STEPHANI NOBLE Personal Relationship Unknown Unava ilable REAL, STEPHANI Personal Relationship Unknown Unava ilable JAMES, ADIS Personal Relationship Unknown Unava ilable REAL, STEPHANI Personal Relationship Unknown Unava ilable REAL, STEPHANI Personal Relationship Unknown Unava ilable REAL, STEPHANI Personal Relationship Unknown Unava ilable REAL, STEPHANI Personal Relationship Unknown Unava ilable JAMES, ADIS Personal Relationship Unknown Unava ilable REAL, STEPHANI Personal Relationship Unknown Unava ilable REAL, STEPHANI Personal Relationship Unknown Unava ilable REAL, STEPHANI Personal Relationship Unknown Unava ilable REAL, STEPHANI Personal Relationship Unknown Unava ilable REAL, STEPHANI Personal Relationship Unknown Unava ilable REAL, STEPHANI Personal Relationship Unknown Unava ilable REAL, STEPHANI spouse Unknown Unavailable REAL, STEPHANI Personal Relationship Unknown Unava ilable REAL, STEPHANI Personal Relationship Unknown Unava ilable REAL, STEPHANI Personal Relationship Unknown Unava ilable REAL, STEPHANI Personal Relationship Unknown Unava ilable REAL, STEPHANI Personal Relationship Unknown Unava ilable Care Team Providers Care Marketing Mgr Name Role Phone Tania GARCIA, Christina Primary Care Physician Encounter [facility] Date(s): 08/21/24 - 09/20/[address] [address]- Encounter Type: Triage Allergies, Adverse Reactions, Alerts Substance Criticality Severity Reaction Reaction Severity Status ciprofloxacin Active Cipro Rash Active Femstat 3 Pruritus Active Bactrim Anxiety Active Immunizations Given and Recorded Vaccine Date Status Refusal Reason [id number] 12y+ bivalent booster vax 09/08/22 Recorded influenza virus vaccine, inactivated 06/30/22 Jam rded influenza virus vaccine, inactivated 07/28/21 Jam rded influenza virus vaccine, inactivated 06/20/20 Jam rded influenza virus vaccine, inactivated 1 06/08/17 Gi reshma influenza virus vaccine, inactivated 2 06/13/16 Re corded influenza virus vaccine, inactivated 3 06/14/15 Gi reshma influenza virus vaccine, inactivated 07/12/13 Give n influenza virus vaccine, inactivated 08/31/12 Give n SARS-CoV-2 (COVID-19) mRNA BNT-162b2 vac 06/17/21 Recorded SARS-CoV-2 (COVID-19) mRNA BNT-162b2 vac 09/23/20 Recorded SARS-CoV-2 (COVID-19) mRNA BNT-162b2 vac 09/01/20 Recorded tetanus/diphtheria/pertussis, acel(Tdap) 07/12/13 Given Measles/Mumps/Rubella Virus Vaccine 05/04/06 Given Diphth-Tetanus Toxoids Adsorbed(oldterm) 04/20/06 Given 1Result Comment: [id number] 2Location History: Pt stated 3Admin Note: at work Medications Albuterol (Eqv-ProAir HFA) 90 mcg/inh inhalation aerosol 2 inhalation, Inhalation, 4 times a day, PRN NEEDED FOR WHEEZING, # 34 Gm, 3 Refills, Maintenance, 01/03/24 3:39:00 PM EDT, [place], [place] - [phone], 90, 2 inhalation Inhalation 4 times a day,PRN: NEEDED FOR WHEEZING, 168, cm, 01/03/24 15:30:00 EDT, Height Start Date: 01/03/24 Status: Ordered Quantity: 34.0 Unit: g Repeat number: 4 atorvastatin 20 mg oral tablet 1 tablet, By Mouth, Daily at bedtime, # 90 tablet, 1 Refills, Maintenance, 06/22/24 8:41:00 AM EDT,[place], [place] - [phone], 168, cm, 01/03/24 15:30:00 EDT, Height Start Date: 06/22/24 Status: Ordered Quantity: 90.0 Unit: tablet Repeat number: 2 buPROPion 300 mg/24 hours oral extended release tablet 1 tablet = 300 mg, By Mouth, Every 24 hours, Prescribed by psychiatrist MD Harp, 0 Refills, Maintenance, 07/12/13 3:39:08 PM EDT Start Date: 07/12/13 Status: Ordered Repeat number: 1 busPIRone 15 mg oral tablet 2 tablet = 30 mg, Daily, 0 Refills, Maintenance, 08/03/24 11:48:00 AM EST, Partial fill upon patient request if the prescription is for a schedule II opioid drug. Start Date: 08/03/24 Status: Ordered Repeat number: 1 clonazePAM 0.5 mg oral tablet 1 tablet = 0.5 mg, By Mouth, Daily, PRN Anxiety, Prescribed by psychiatrist MD Harp, 0 Refills,Maintenance, 03/07/20 10:24:00 AM EDT, Tablet Start Date: 03/07/20 Status: Ordered Repeat number: 1 [facility] Pro[facility] --Lactobacillus Acidophilus [facility] --Lactobacillus Acidophilus, 1, tablet, By Mouth, Daily, # 30 tablet, Refills 11, Tot. Refills 11, Maintenance, 10/04/12 7:48:20 AM EST Start Date: 10/04/12 Status: Ordered Quantity: 30.0 Unit: tablet Repeat number: 12 fluticasone-salmeterol 100 mcg-50 mcg inhalation powder 1, inhalation, Inhalation, 2 times a day, rinse mouth and throat after use, # 180 each, Refills 3, Tot. Refills 3, Maintenance, 06/22/24 5:09:00 PM EDT, Route to Pharmacy Electronically, [id number], [facility] [id number], 168, cm, 01/03/24 15:30:00EDT, Height Start Date: 06/22/24 Status: Ordered Quantity: 180.0 Unit: each Repeat number: 4 losartan 25 mg oral tablet 25 mg, 1, tablet, By Mouth, Daily, # 90 tablet, Refills 3, Tot. Refills 3, Maintenance, 06/22/24 8:54:00 AM EDT, Route to Pharmacy Electronically, [facility] [id number], Partial fill upon patient request if the prescription is for a schedule II opioid drug., 168, cm, 01/03/24 15:30:00 EDT, Height Start Date: 06/22/24 Status: Ordered Quantity: 90.0 Unit: tablet Repeat number: 4 MAGNESIUM MAGNESIUM, Refills 0, Maintenance, 01/03/24 3:42:00 PM EDT, Supply Start Date: 01/03/24 Status: Ordered Repeat number: 1 METHYLFOLATE METHYLFOLATE, Refills 0, Maintenance, 01/03/24 3:42:00 PM EDT, Supply Start Date: 01/03/24 Status: Ordered Repeat number: 1 methylphenidate 54 mg oral tablet, extended release 1 tablet = 54 mg, Daily in AM, 0 Refills, Maintenance, 08/03/24 11:48:00 AM EST, Partial fill upon patient request if the prescription is for a schedule II opioid drug. Start Date: 08/03/24 Status: Ordered Repeat number: 1 Ortikos 9 mg oral capsule, extended release TAKE 1 CAPSULE BY MOUTH EVERY DAY Start Date: 06/09/21 Status: Ordered Repeat number: 1 propranolol 10 mg oral tablet 10 mg, 1, tablet, By Mouth, 2 times a day, # 180 tablet, Refills 0, Maintenance, 03/07/20 10:20:00 AM EDT Start Date: 03/07/20 Status: Ordered Quantity: 180.0 Unit: tablet Repeat number: 1 venlafaxine 75 mg oral capsule, extended release 75 mg, 1, capsule, By Mouth, Daily, # 30 capsule, Refills 0, Maintenance, 06/09/21 4:31:00 PM EDT, Partial fill upon patient request if the prescription is for a schedule II opioid drug. Start Date: 06/09/21 Status: Ordered Quantity: 30.0 Unit: capsule Repeat number: 1 Vitamin B2 By Mouth, Daily, 0 Refills, Maintenance, 01/03/24 3:42:00 PM EDT, Partial fill upon patient request if the prescription is for a schedule II opioid drug. Start Date: 01/03/24 Status: Ordered Repeat number: 1 Zepbound 2.5 mg/0.5 mL subcutaneous solution = 2.5 mg, Subcutaneous Injection, Every week, rotate injection sites, # 4 each, 0 Refills, Maintenance, 09/19/24 5:07:00 PM EST, Solution, [place], [place] - [phone], Partial fill upon patient request if the prescription is for a schedule II opioid drug., 168, cm, 08/21/24 9:42:00EST, Height Start Date: 09/19/24 Status: Ordered Quantity: 4.0 Unit: each Repeat number: 1 Problem List Condition Confirmation Course Effective Dates Status H ealth Status Informant Allergic rhinitis Confirmed Active Asthma Confirmed 1998 Active Coronary artery calcification seen on CT scan Confirmed Active Colitis Confirmed Active Collagenous colitis Confirmed Active Diverticulosis Confirmed Active Anxiety, generalized Confirmed 1998 Active History of alcohol abuse Confirmed Active HTN (hypertension) Confirmed Active Insomnia Confirmed Active Migraine aura without headache Confirmed 1998 Active Major depression Confirmed Active Colon polyps Confirmed Active PTSD (post-traumatic stress disorder) Confirmed Active Prediabetes Confirmed Active Dyslipidemia Confirmed 1996 Active Severe obesity (BMI 35.0-39.9) with comorbidity Confirmed Active Tubular adenoma of colon Confirmed 11/18/15 Active Social History Social History Type Response Smoking Status Former smoker entered on: 11/01/15 Sex Sex Representation Female (finding) Patient Care team information Care Team Personnel Name: Christina Marin MD Position: [facility] Physician - Primary Care Member Role: PCP Address: [address] [place] [id number] [[email or web address] Telecom: Care Team Related Persons Name: STEPHANI NOBLE Insurance Providers Guarantor name: AILIN NOBLE Mozio Plan Information #: 1 Payer: [employer] Member Number: NA Policy Number: NA Group Number: NA
--- OUTSIDE RECORDS SUMMARY | 2024-09-21 11:59 | XMS_ITS | Data Portability ---
Author Organization [facility]res [facility], [address] Address [address] [place] [address] Care Team Providers Care Radio Despatcher Name Role Phone NIKHIL HUFF Primary Care Provider [phone] Assessment No assessment recorded. Plan of Treatment Reminders Order Date Submit Date Provider Last Modified By Organization Details Last Modified Time Details Appointments None recorded. Lab SARS CoV 2 (COVID-19) Ag, QL, [place], upper respiratory specimen 2023 024 [email or web address] [facility] [address], [address] [place], [address], 4 19:53:58 Referral None recorded. Procedures None recorded. Surgeries None recorded. Imaging XR, tibia + fibula, 2 view 2022 023 SILETZ [facility], [address] [facility] [place], [address], 3 17:03:07 Medication Orders naproxen 500 mg tablet 2022 023 [place], [place] - [phone], [address] [place], [address], 3 14:53:22 omeprazole 20 mg capsule,del ayed release 2022 023 [place] - [id number], [address] [place], [address], 3 14:53:20 prednisone 20 mg tablet 2023 024 [id number], [address], [phone], 4 19:54:03 azithromyci n 250 mg tablet 2023 024 [facility] #[id number], [address] [place], [place], [phone], 19:54:03 Patient TargetsNo targets recorded. Patient Instructions Encounter Date Encounter Id Patient Instructions Last Modified By Organization Details Last Modified Time 10/10/2023 [id number] COPD exacerbatio n plan: care instructions [email or web address] Not available 10/10/2023 19:53:56 Reason for Referral None Reported. Results Created Date Observation Date Name Description Value Unit Range Abnormal Flag Note LastModifiedBy Organization Detail LastModifiedTime 10/10/1910/10/2023 SARS CoV 2 (COVI D-19) Ag, QL, IA, upper respi rator y speci men Unknown Analyte negati ve Not Available [facility] [address] [place], [address], 10/10/2023 19:17:04 10/10/19 24 10/10/2023 SARS CoV 2 (COVI D-19) Ag, QL, IA, upper respi rator y speci men Unknown Analyte yes Not Available [address] [place] [address] [address] [place], [address], 10/10/2023 19:17:04 11/28/19 23 11/27/2022 XR, tibia + fibul a, 2 view No observ ation record ed. [email or web address] [facility] [address] [facility], [place], [address], 11/27/2022 17:12:16 Result Notes None recorded. Problems Name Problem SNOMED Code Status Onset Date Resolution Date Notes Provider Name and Address Organization Details Recorded Time Chronic colitis 49815390 Active 2022 NICOLAS hill, PA - [facility] 3 14:28:38 Allergic asthma 597662095 Active 2022 NICOLAS hill, PA - [facility] 3 14:29:08 Concussion injury of brain 033336314 Active 2022 fell x couple of weeks ago at work & dx with concussion NICOLAS hill, PA - [facility] 3 14:30:20 Problem Notes None recorded. Procedures Surgical History Date Name Laterality Status Provider Name and Address Organization Details Recorded Time delivery completed NICOLAS Amor PA - [facility] 11/27/2022 14:30:54 cholecystectomy completed NICOLAS STALLINGS PA - [facility] 11/27/2022 14:31:02 adenoid excision completed NICOLAS STALLINGS PA - [facility] 11/27/2022 14:31:10 thumb surgery completed NICOLAS STALLINGS PA - [facility] 11/27/2022 14:31:26 Imaging Results Imaging Date Name Status LastModified by Organiz ation Details LastModified Time 11/27/2022 XR, tibia + fibula, 2 view completed [facility] [address] [place] [address], [address], 11/27/2022 17:12:16 Procedure Notes None recorded. Medical Equipment None Reported. Allergies Allergen ID Allergen Name Allergen Category Reaction Reaction Severity Criticality Documentation Date Start Date Code Code System Note Provider Name and Address Organization Details Recorded Time 289469 Cipro medicatio n rash Not available Not available 11/27/202211970 3 RxNorm NICOLAS hill, PA - [facility] 3 14:24:29 Medications Name Sig Start Date Stop Date Status Note LastModified by Organization Details LastModified Time clotrimazol e 10 mg armand DISSOLVE 1 ARMAND BY MOUTH FIVE TIMES DAILY FOR 7 DAYS 11/27 completed Not Available Not Available Not Available venlafaxine ER 75 mg capsule,ext ended release 24 hr TAKE 1 CAPSULE BY MOUTH ONCE DAILY. added TO 150mg DAILY active Not Available Not Available No t Available atorvastati n 20 mg tablet TAKE 1 TABLET BY MOUTH ONCE DAILY AT BEDTIME active Not Available Not Available No t Available azithromyci n 250 mg tablet TAKE 2 TABLETS (500 MG) BY ORAL ROUTE ONCE DAILY FOR 1 DAY THEN 1 TABLET (250 MG) BY ORAL ROUTE ONCE DAILY FOR 4 DAYS 2023 active Not Available Not Available Not Avai lable Lidocaine Viscous 2 % mucosal solution SWISH WITH 10ml 4 (FOUR) TIMES DAILY DIRECTED 11/27 completed Not Available Not Available Not Available fluconazole 150 mg tablet TAKE 1 TABLET BY MOUTH EVERY 3 DAYS FOR 2 DOSES active Not Available Not Available No t Available methylpheni date 20 mg tablet TAKE 1 TABLET BY MOUTH 3 (THREE) TIMES A DAY active Not Available Not Available No t Available meloxicam 15 mg tablet Take 1 Tablet by mouth daily for 21 days. active Not Available Not Available No t Available metronidazo le 0.75 % (37.5 mg/5 gram) vaginal gel INSERT 1 APPLICATO RFUL VAGINALLY EVERY DAY FOR 5 DAYS active Not Available Not Available No t Available prednisone 20 mg tablet Take 2 tablets every day by oral route for 5 days. 2023 active Not Available Not Available Not Avai lable clonazepam 0.5 mg tablet TAKE 1 TABLET BY MOUTH ONCE DAILY NEEDED FOR ANXIETY active Not Available Not Available No t Available venlafaxine ER 150 mg capsule,ext ended release 24 hr TAKE 1 CAPSULE BY MOUTH two (2) times a day active Not Available Not Available No t Available tramadol 50 mg tablet TAKE 1 TABLET BY MOUTH TWICE DAILY FOR 3 DAYS NEEDED FOR PAIN active Not Available Not Available No t Available propranolol 10 mg tablet TAKE 1 TABLET BY MOUTH ONCE DAILY NEEDED FOR ANXIETY OR ptsd active Not Available Not Available No t Available meclizine 25 mg tablet TAKE 1 TABLET BY MOUTH 3 (THREE) TIMES A DAY NEEDED FOR DIZZINESS 11/27 completed Not Available Not Available Not Available pantoprazol e 40 mg tablet,jose yed release TAKE 1 TABLET BY MOUTH DAILY 11/27 completed Not Available Not Available Not Available naproxen 500 mg tablet,jose yed release TAKE 1 TABLET BY MOUTH two (2) times a day active Not Available Not Available No t Available losartan 25 mg tablet TAKE 1 TABLET BY MOUTH ONCE DAILY active Not Available Not Available No t Available bismuth subsalicyla te 262 mg chewable tablet TAKE 2 TABLETS BY MOUTH TWICE DAILY active Not Available Not Available No t Available omeprazole 20 mg capsule,del ayed release Take 1 capsule every day by oral route for 14 days. active Not Available Not Available No t Available nystatin 100,000 unit/gram topical powder APPLY TOPICALLY 2 TIMES A DAY FOR 10 DAYS active Not Available Not Available No t Available budesonide DR - ER 3 mg capsule,del ayed,extend ed release TAKE 1 CAPSULE BY MOUTH ONCE DAILY FOR treatment taper active Not Available Not Available No t Available estradiol 0.01% (0.1 mg/gram) vaginal cream INSERT 1 gram VAGINALLY NIGHTLY FOR 2 WEEKS; THEN USE TWICE A WEEK thereafte r active Not Available Not Available No t Available albuterol sulfate HFA 90 mcg/actuati on aerosol inhaler INHALE 2 PUFFS BY MOUTH INTO THE lungs 4 (FOUR) TIMES DAILY NEEDED FOR WHEEZING active Not Available Not Available No t Available ketoconazol e 2 % topical cream APPLY TO THE AFFECTED AREA TOPICALLY two (2) times a day 11/27 completed Not Available Not Available Not Available naproxen 500 mg tablet Take 1 tablet twice a day by oral route with meals for 7 days. active Not Available Not Available No t Available cholestyram ine (with sugar) 4 gram powder for susp in a packet DISSOLVE THE CONTENT OF 1 PACKET (4gm) IN WATER AND DRINK two (2) times a day. TAKE WITH A MEAL. AVOID medicines WITHIN 1 HOUR BEFORE OR 4 TO 6 HOURS AFTER DOSE 11/27 completed Not Available Not Available Not Available bupropion HCl XL 300 mg 24 hr tablet, extended release TAKE 1 TABLET BY MOUTH EVERY MORNING active Not Available Not Available No t Available nitrofurant oin monohydrate /macrocryst als 100 mg capsule TAKE 1 CAPSULE BY MOUTH AFTER intercour se 11/27 completed Not Available Not Available Not Available Apriso 0.375 gram capsule,ext ended release TAKE 4 CAPSULES BY MOUTH DAILY 11/27 completed Not Available Not Available Not Available mesalamine 800 mg tablet,jose yed release 11/27 completed Not Available Not Available Not Available budesonide DR-ER 9 mg tablet,jose yed and extended release TAKE 1 TABLET BY MOUTH ONCE DAILY IN THE MORNING active Not Available Not Available No t Available Wixela Inhub 100 mcg-50 mcg/dose powder for inhalation INHALE 1 PUFF BY MOUTH INTO THE lungs two (2) times a day. rinse mouth and throat after use active Not Available Not Available No t Available Ortikos 9 mg capsule,ext ended release TAKE 1 CAPSULE BY MOUTH DAILY FOR 8 WEEKS active Not Available Not Available No t Available Ortikos 6 mg capsule,ext ended release TAKE 6MG BY MOUTH EVERY MORNING active Not Available Not Available No t Available Vitals Date Recorded Body height Body mass index (BMI) Body weight Body temperature Oxygen saturation Oxygen saturation in Arterial blood by Pulse oximetry Heart rate Respiratory rate Systolic blood pressure Diastolic blood pressure Provider Name and Address Organization Details Last Updated DateTime 3 167.64 cm 38.7 kg/m2 717465. 17 g 97 [degF] 97 % 97 % 76 /min 16 /min 125 mm[Hg] 85 mm[Hg] NICOLAS STALLINGS PA - [facility] 3 14:33:05 Date Recorded Body height Body mass index (BMI) Body weight Oxygen saturation Oxygen saturation in Arterial blood by Pulse oximetry Heart rate Respiratory rate Body temperature Systolic blood pressure Diastolic blood pressure Provider Name and Address Organization Details Last Updated DateTime 4 167.64 cm 38.7 kg/m2 206341. 17 g 96 % 96 % 93 /min 18 /min 96.3 [degF] 121 mm[Hg] 79 mm[Hg] Linda Alvarez PA - [facility] 4 19:16:11 Social History Question Answer Notes LastModified by Organizat ion Details LastModified Time Tobacco Smoking Status Never Smoker NICOLAS hill PA - [facility] 11/27/2022 14:30:35 What Is Your Level Of Alcohol Consumption? None [email or web address] Information not available 11/27/2022 Have You Had A Flu Shot This Season? No [email or web address] Information not available 10/10/2023 What Was The Date Of Your Most Recent Tobacco Screening? 10/10/2023 [email or web address] Information not available 10/10/2023 Do You Use Any Illicit Or Recreational Drugs? No Information not available 11/27/2022 Have You Recently Traveled Abroad? No [email or web address] Information not available 11/27/2022 Do You Or Have You Ever Used Any Other Forms Of Tobacco Or Nicotine? No Information not available 11/27/2022 Sex: Unknown Functional Status None recorded. Mental Status None recorded. Family History Relationship Description Onset Age of this Age Resolved Age Notes LastModified by Organization Details LastModified Time Father No current problems or disability Not available 11/27 14:29:41 Mother No current problems or disability [email or web address] Not available 11/27 14:29:41 Medical History No medical history recorded. Gynecological HistoryNo gynecological history recorded. Obstetrics History GPAL:G 0 P 0 0 0 0 Past Encounters Encounter ID Performer Location Encounter Start Date Encounter Closed Date Diagnosis/Indication Diagnosis SNOMED-CT Code Diagnosis ICD10 Code Diagnosis Note [id number] [address] [place] [address] 12/08/2021 15:29:52 12/08/2021 17:54:35 [id number] [facility] [address] [address] 08/11/2018 08:11:51 08/11/2018 09:08:09 [id number] [address] [place] [address] 10/10/2021 08:40:17 10/10/2021 09:29:07 [id number] Mario Pond DO [address] [address] 11/27/2022 12:37:16 11/27/2022 15:56:48 Pain of left lower leg 7574706272 85624 M79.662 recommend NSAID w/ PPI x 7dtopical analgesiai cegentle stretching f/u with PCP and referral to Ortho or PT prn no improvemen t Discussed concerning red flags with patient and reasons to follow up in the Emergency Department urgently. Patient advised to follow up as needed for worsening symptoms or no improvemen t. [id number] KATYA Cooper [address] [place] [address] 10/10/2023 18:56:05 10/10/2023 19:56:26 Exacerbation of moderate persistent asthma 733160071 J45.41 Health Concerns Section Related Observation LastModified by Organization Detai ls LastModified Time None Recorded Concern Status LastModified by Organization Details LastModified Time None Recorded Advance Directives Directive None Recorded Payers Encounter Date Sequence Insurance Name Policy Number Policy Garcia Covered Member ID Garcia Member ID Guarantor Name 10/10/2021 1 [employer] [place] [id number] Jaycee Velásquez [id number] Jaycee Velásquez 12/08/2021 1 [employer] [place] [id number] Jaycee Didier [id number] Jaycee Velásquez 11/27/2022 1 [employer] [id number] Jaycee Didier [id number] Jaycee Didier 10/10/2023 FEE FOR SERVICE Jaycee Didier Notes Date Note Type Note Provider Name and Address Organization Details Recorded Time 11/28/19 23 text/htm l Lower Leg UCReported bypatient.Notes:57 y o c/o pain in [place] hill x 1 d no traumarecently started walking more no otc meds, no iceno bruising or rash\no weaknessno numbness/tingling Mario Pond DO [address] [place], [address], PA - [facility] 11/27/2022 15:53:15 10/10/19 24 text/htm l CoughReported bypatient.source of patient informationInformation obtained from patient; Patient arrived at Urgent Care ambulatory Quality:harsh;productive cough; intermittent Severity:moderate; not really improving Duration:6 days Timing:gradual Associated Symptoms:no fever; no chills; no chest pain;wheezing KATYA Gandhi [address] [place], [address], PA - [facility] 10/10/2023 19:54:12 OBGyn Episode No OBEpisode recorded.
--- OUTSIDE RECORDS SUMMARY | 2024-09-21 11:59 | XMS_ITS | Continuity of Care Document ---
Author Organization [facility] Adult Address [address] [place] [address]- Support Name Relationship Address Phone STEPHANI NOBLE [...] Unknown Unava ilable Care Team Providers Care Business Applications Manager Name Role Phone Tania GARCIA, Christina Primary Care Physician Encounter [facility] Date(s): 08/21/24 - 09/20/[address] [address] Attending Physician: Sherron Sanchez Encounter Type: Triage Allergies, Adverse Reactions, Alerts Substance Criticality Severity Reaction Reaction Severity Status ciprofloxacin Active Cipro Rash Active Bactrim Anxiety Active Femstat 3 Pruritus Active Immunizations Given and Recorded Vaccine Date Status Refusal Reason [id number] 12y+ bivalent booster vax 09/08/22 Recorded influenza virus vaccine, inactivated 06/30/22 Jam rded influenza virus vaccine, inactivated 07/28/21 Jam rded influenza virus vaccine, inactivated 06/20/20 Jam rded influenza virus vaccine, inactivated 1 06/08/17 Gi reshma influenza virus vaccine, inactivated 2 06/13/16 Re corded influenza virus vaccine, inactivated 3 06/14/15 Gi resham influenza virus vaccine, inactivated 07/12/13 Give n influenza virus vaccine, inactivated 08/31/12 Give n SARS-CoV-2 (COVID-19) mRNA BNT-162b2 vac 06/17/21 Recorded SARS-CoV-2 (COVID-19) mRNA BNT-162b2 vac 09/23/20 Recorded SARS-CoV-2 (COVID-19) mRNA BNT-162b2 vac 09/01/20 Recorded tetanus/diphtheria/pertussis, acel(Tdap) 07/12/13 Given Measles/Mumps/Rubella Virus Vaccine 05/04/06 Given Diphth-Tetanus Toxoids Adsorbed(oldterm) 04/20/06 Given 1Result Comment: [id number] 2Location History: Pt stated 3Admin Note: at work Medications Albuterol (Eqv-ProAir HFA) 90 mcg/inh inhalation aerosol 2 inhalation, Inhalation, 4 times a day, PRN NEEDED FOR WHEEZING, # 34 Gm, 3 Refills, Maintenance, 01/03/24 3:39:00 PM EDT, [place], [place] - [phone], 90, 2 inhalation Inhalation 4 times a day,PRN: NEEDED FOR WHEEZING, 168, cm, 01/03/24 15:30:00 EDT, Height Start Date: 01/03/24 Status: Ordered Quantity: 34.0 Unit: g Repeat number: 4 atorvastatin 20 mg oral tablet 1 tablet, By Mouth, Daily at bedtime, # 90 tablet, 1 Refills, Maintenance, 06/22/24 8:41:00 AM EDT,[place], [place] - [phone], 168, cm, 01/03/24 15:30:00 EDT, Height Start [...] 5:09:00 PM EDT, Route to Pharmacy Electronically, [id number], [facility] [id number], 168, cm, 01/03/24 15:30:00EDT, Height Start Date: 06/22/24 Status: Ordered Quantity: 180.0 Unit: each Repeat number: 4 losartan 25 mg oral tablet 25 mg, 1, tablet, By Mouth, Daily, # 90 tablet, Refills 3, Tot. Refills 3, Maintenance, 06/22/24 8:54:00 AM EDT, Route to Pharmacy Electronically, [facility] [id number], Partial fill upon patient request if the [...] Refills, Maintenance, 09/19/24 5:07:00 PM EST, Solution, [place], [place] - [phone], Partial fill upon patient request if the [...] on: 11/01/15 Sex Sex Representation Female (finding) Laboratory * Event Display: Non BH Lab Results Authored Date: * Event Display: Laboratory Result Scanned Authored Date: * Event Display: Non BH Lab Results Authored Date: Radiology * Event Display: MRI Head, Non- BH Authored Date: * Event Display: CT Scan Head, Non- BH Authored Date: * Event Display: X-Ray Hip/Groin Authored Date: * Radha Best: PERFORM Event Display: Radiology Results Scanned Authored Date: * Cinthia Colin: PERFORM Event Display: Radiology Results Scanned Authored Date: * Nathaniel Noel: PERFORM Event Display: Radiology Results Scanned Authored Date: XR Spine Views * Event Display: X-Ray Spine Authored Date: MG Breast Views * Event Display: MM Mammogram Authored Date: * Event Display: MM Mammogram Authored Date: * Event Display: MM Mammogram, Non- BH Authored Date: * Event Display: MM Mammogram, Non- BH Authored Date: * Event Display: MM Mammogram Authored Date: * Event Display: MM Mammogram, Non- BH Authored Date: Patient Care team information Care Team Personnel Name: Christina Marin MD Position: [facility] Physician - Primary Care Member Role: PCP Address: [address] [place] [address] Telecom: Care Team Related Persons Name: STEPHANI NOBLE Insurance Providers Guarantor name: AILIN NOBLE [place] Plan Information #: 1 Payer: [employer] H[employer] Member Number: NA Policy Number: NA Group Number: NA
--- OUTSIDE RECORDS SUMMARY | 2024-09-21 11:59 | XMS_ITS | Continuity of Care Document ---
Author Organization [facility] Adult Address [address] [place] [address]- Support Name Relationship Address Phone STEPHANI NOBLE [...] Unknown Unava ilable Care Team Providers Care Eight Section Blower Name Role Phone Tania GARCIA, Christina Primary Care Physician Encounter [facility] Date(s): 07/24/24 - 08/23/24 [facility] Adult [address] [place] [address]- Encounter Type: Triage Allergies, Adverse Reactions, Alerts Substance Criticality Severity Reaction Reaction Severity Status ciprofloxacin Active Cipro Rash Active Bactrim Anxiety Active Femstat 3 Pruritus Active Immunizations Given and Recorded Vaccine Date Status Refusal Reason [id number] 12y+ bivalent booster vax 09/08/22 Recorded influenza [...] Diphth-Tetanus Toxoids Adsorbed(oldterm) 04/20/06 Given 1Result Comment: [id number] 2Location History: Pt stated 3Admin Note: at work Problem List Condition Confirmation Course Effective Dates [...] Team Personnel Name: Christina Marin MD Position: [facility] Physician - Primary Care Member Role: PCP Address: [address] [place] [address] [address] [place] [address]- Telecom: Care Team Related Persons Name: STEPHANI NOBLE Insurance Providers Guarantor name: AILIN NOBLE [employer] [facility] Information #: 1 Payer: [facility] SELECT HMO Member Number: NA Policy Number: NA Group Number: NA
--- OUTSIDE RECORDS SUMMARY | 2024-09-21 11:59 | XMS_ITS | Continuity of Care Document ---
Author Organization [facility] Adult Address [address] [place] [address]- Support Name Relationship Address Phone STEPHANI NOBLE [...] Unknown Unava ilable Care Team Providers Care Land Commissioner Name Role Phone Tania GARCIA, Christina Primary Care Physician Encounter [facility] Date(s): 08/03/24 - 09/02/[address] [address]- Encounter Type: Triage Allergies, Adverse Reactions, Alerts Substance Criticality Severity Reaction Reaction Severity Status ciprofloxacin Active Cipro Rash Active Femstat 3 Pruritus Active Bactrim Anxiety Active Immunizations Given and Recorded Vaccine Date Status Refusal Reason [id number] 12y+ bivalent booster vax 09/08/22 Recorded influenza [...] Diphth-Tetanus Toxoids Adsorbed(oldterm) 04/20/06 Given 1Result Comment: [id number] 2Location History: Pt stated 3Admin Note: at [...] Team Personnel Name: Christina Marin MD Position: [facility] Physician - Primary Care Member Role: PCP Address: [address] [place] [address] [address] [place] [address]- Telecom: Care Team Related Persons Name: STEPHANI NOBLE Insurance Providers Guarantor name: AILIN NOBLE [employer] [facility] Information #: 1 Payer: [facility] SELECT HMO Member Number: NA Policy Number: NA Group Number: NA
--- OUTSIDE RECORDS SUMMARY | 2024-09-21 11:59 | XMS_ITS | Continuity of Care Document ---
Author Organization [facility] Adult Address [address] [place] [address]- Support Name Relationship Address Phone STEPHANI NOBLE [...] Unknown Unava ilable Care Team Providers Care Plate Put In Worker Name Role Phone Christina Marin MD Primary Care Physician Encounter [facility] Date(s): 08/21/24 - 08/28/[address] [address]- Encounter Diagnosis Major depressive disorder, single episode, moderate(Discharge Diagnosis) - 08/21/24 Prediabetes(Discharge Diagnosis) - 08/21/24 Dyslipidemia(Discharge Diagnosis) - 08/21/24 Severe obesity (BMI 35.0-39.9) with comorbidity(Discharge Diagnosis) - 08/21/24 History of alcohol abuse(Discharge Diagnosis) - 08/21/24 Attending Physician: Christina Marin MD Encounter Type: Office Visit Allergies, Adverse Reactions, Alerts Substance Criticality Severity Reaction Reaction Severity Status ciprofloxacin Active Cipro Rash Active Bactrim Anxiety Active Femstat 3 Pruritus Active Immunizations Given and Recorded Vaccine Date Status Refusal Reason [id number] 12y+ bivalent booster vax 09/08/22 Recorded influenza [...] Diphth-Tetanus Toxoids Adsorbed(oldterm) 04/20/06 Given 1Result Comment: [id number] 2Location History: Pt stated 3Admin Note: at [...] Tubular adenoma of colon Confirmed 11/18/15 Active Diagnosis Diagnosis Type Effective Dates Health Status Clinical Service Informant Major depressive disorder, single episode, moderate Discharge Diagnosis 08/21/24 Prediabetes Discharge Diagnosis 08/21/24 Dyslipidemia Discharge Diagnosis 08/21/24 Severe obesity (BMI 35.0-39.9) with comorbidity Discharge Diagnosis 08/21/24 History of alcohol abuse Discharge Diagnosis 08/21/24 Vital Signs Most recent to oldest [Reference Range]: 1 Height 168 cm (08/21/24 9:42 AM) Social History Social History Type Response Smoking Status Former smoker entered on: 11/01/15 Sex Sex Representation Female (finding) Patient Care team information Care Team Personnel Name: Christina Marin MD Position: [facility] Physician - Primary Care Member Role: PCP Address: [address] [place], [place] [id number] Telecom: Care Team Related Persons Name: STEPHANI NOBLE Insurance Providers Guarantor name: AILIN NOBLE Health Plan Information #: 1 Payer: [facility] [employer] H[employer] Member Number: [id number] Policy Number: NA Group Number: [id number] Health Plan Information #: 2 Payer: [facility] [employer] H[employer] Member Number: [id number] Policy Number: NA Group Number: [id number]
--- OUTSIDE RECORDS SUMMARY | 2024-09-21 11:59 | XMS_ITS | Continuity of Care Document ---
Author Organization [facility] Adult Address [address] [place] [address]- Support Name Relationship Address Phone STEPHANI NOBLE [...] Unknown Unava ilable Care Team Providers Care Mail Handler Sorter Name Role Phone Tania GARCIA, Christina Primary Care Physician Encounter [facility] Date(s): 07/25/24 - 08/24/24 [facility] [address] [place] [address]- Encounter Type: Triage Allergies, Adverse Reactions, Alerts Substance Criticality Severity Reaction Reaction Severity Status ciprofloxacin Active Cipro Rash Active Bactrim Anxiety Active Femstat 3 Pruritus Active Immunizations Given and Recorded Vaccine Date Status Refusal Reason [id number] 12y+ bivalent booster vax 09/08/22 Recorded influenza virus vaccine, inactivated 06/30/22 Jam rded influenza virus vaccine, inactivated 07/28/21 Jma rded influenza virus vaccine, inactivated 06/20/20 Jam [...] Diphth-Tetanus Toxoids Adsorbed(oldterm) 04/20/06 Given 1Result Comment: [id number] 2Location History: Pt stated 3Admin Note: at [...] Team Personnel Name: Christina Marin MD Position: [facility] Physician - Primary Care Member Role: PCP Address: [address] [place] [address] [address] [place] [address]- Telecom: Care Team Related Persons Name: STEPHANI NOBLE Insurance Providers Guarantor name: AILIN NOBLE [employer] [facility] Information #: 1 Payer: [facility] SELECT HMO Member Number: NA Policy Number: NA Group Number: NA
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
[2024-09-21 13:32] VITALS: BP 130/81
== END 2024-09-21 13:23 | disposition home or self-care (01) ==
LOC: HO.HOP 11:19
PROVIDERS: PCP Internal Medicine; Visit Provider Psychiatry & Neurology Psychiatry
DX: F33.1 Major depressive disorder, recurrent, moderate (principal); F41.1 Generalized anxiety disorder; F90.8 Attention-deficit hyperactivity disorder, other type; F43.12 Post-traumatic stress disorder, chronic
CPT/HCPCS: 99214

== ENCOUNTER → 2024-09-21 11:19 | Outpatient (BNVA) | payer OTHER, SELFPAY | PROVIDERS: PCP Internal Medicine; Visit Provider Psychiatry & Neurology Psychiatry | DX: F33.1 Major depressive disorder, recurrent, moderate (principal); F41.1 Generalized anxiety disorder; F90.8 Attention-deficit hyperactivity disorder, other type; F43.12 Post-traumatic stress disorder, chronic | CPT/HCPCS: 99212 ==

== ENCOUNTER 2024-10-10 09:11 | Outpatient (AMB) | payer OTHER, SELFPAY ==
[2024-10-10 09:14] VITALS: BP 126/76; BMI 36.2
--- NOTE | 2024-10-10 09:14 | MHC.OFFVIS ---
Vital Signs 10/10/24 09:14 Height 5 ft 6 in Weight 224 lb BMI 36.2 BP 126/76 Blood Pressure Location Lt brachial Position Sitting Intake Visit Reasons: Follow Up Allergies ciprofloxacin [From CIPRO] Allergy (Intermediate, Verified 10/10/24 09:17) RASH Sulfa (Sulfonamide Antibiotics) [SULFA (SULFONAMIDE ANTIBIOTICS)] Allergy (Intermediate, Verified 10/10/24 09:17) RASH Medication List - Last Reconciled 10/10/24 by ATUL Gudino albuterol sulfate 90 mcg/actuation 2 puffs inhalation QID PRN atorvastatin 20 mg PO DAILY budesonide DR-ER 3 mg PO DAILY bupropion HCl XL 300 mg PO QAM buspirone 15 mg PO BID clonazepam 0.5 mg PO DAILY PRN fluconazole 100 mg PO DAILY 7 days fluticasone propion-salmeterol 100-50 mcg/dose 1 ea inhalation BID losartan 25 mg PO DAILY magnesium oxide 400 mg PO BEDTIME 30 days methylphenidate HCl ER (Concerta) 57 mg PO DAILY prazosin 2 mg PO BEDTIME riboflavin (vitamin B2) 400 mg PO DAILY 30 days sumatriptan succinate 50 - 100 mg orally at onset of headache, may repeat in 2 hrs PRN; max 2 tabs per day or 4 tabs/week (may take with Ibuprofen) 30 days thiamine HCl (vitamin B1) 100 mg PO DAILY 30 days venlafaxine ER 300 mg PO DAILY HPI Comments Details: 59-yr-old female presents for f/u of post-concussive synsdrome. Pt was last seen in February 2024, however we have had several phone and portal communications during this time. Pt reports she has an neurology CINDA- a brief review ofthis report with pt showed- impaired tandem, UE postural/kinetic tremor, diplopia on convergence, dizziness elicited on vestibular testing. Recommendation is full disability. Advised for pt should have cognitive therapy. Pt will forward the full report to me. She completed vestibular therapy, which was helpful. She can still be off-balance and dizzy, feels a bit more increased during the winter due to sinus fullness/congestion. She has been able to start driving again. She reports she continues to have cognitive difficulties, including word finding difficulties, difficulty following directions, and can struggle with communication difficulties w/ her partner and son. She does note that her tinnitus is worse/louder- is scheduled for a f/u audiology eval. Also scheduled for an eye exam. Can be easily distracted. She finds that although she knows things, it can take her while to figure something out, her thought process is not as linear as before. She is still prone to forgetfulness. Trying to make note sin her phone, but has to remind herself to check her phone. She finds her self stuck more- such as she wants to get up and needs to go to the bathroom, but then just does not get up to go. She continues to have a constant low level headache, but denies recent migraine headaches. Can have headache that come on strong for a short while w/o photo/phonophobia or N/V. Uses Tylenol or Ibuprofen. Uses Sumatriptan- only at night as it makes her sleepy. Using Magnesium and B2 gummies. Review of recent medical record, shows recent low vitamin B1 level. Patient endorses fatigue, snoring, sleep difficulties. Her psychiatrist had suggested she have a sleep study. [facility] Medical History Major depression, recurrent, chronic Prediabetes Migraine aura without headache Dyslipidemia Diverticulitis Coronary artery calcification seen on CAT scan Colon polyps Colitis [place] (hard of hearing) History of headache Chronic post-traumatic stress disorder (PTSD) Attention-deficit hyperactivity disorder, other type Cognitive and neurobehavioral dysfunction following brain injury Generalized anxiety disorder Major depressive disorder, recurrent episode, in partial remission with mixed features Collagenous colitis Depression PTSD (post-traumatic stress disorder) Anxiety Asthma, allergic Borderline hypertension Elevated cholesterol History of colon polyps Surgical History H/O adenoidectomy H/O thumb surgery History of esophagogastroduodenoscopy (EGD) Hx laparoscopic cholecystectomy (~2005) H/O: History of colonoscopy Family History Father Alcoholism Lung cancer Mother Diabetes Dementia Hypercholesteremia Brother Diabetes insipidus Brother Asthma Social History Household Members: Spouse and Other Household Members Other:: 19 year old son Alcohol intake: never Patient Tobacco Use Status: Never used Tobacco Second Hand Smoke Exposure: No Current occupational status: employed and unemployed Current occupation: [employer] [place] Physical Exam Vital Signs: Last Vital Signs BP 126/76 10/10/24 09:14 BMI result Body Mass Index 36.2 Const General: cooperative and no acute distress Resp Effort & Inspection: normal respiratory effort and able to speak in complete sentences Neuro Other: Alert and oriented x3- with mild STM lapses BUE kinetic tremor on finger-nose exam BUE mild postural tremor EOM intact without nystagmus, however diplopia elicited on bilateral convergence Gaze evoked nystagmus test- did not elicit nystagmus, however elicits dizziness after a few seconds of testing Negative Romberg Impaired tandem gait Psych Appearance: grossly normal Affect: normal affect Attitude: cooperative Assessment & Plan Assessment & Plan (1) Postconcussive syndrome: Comment: s/p fall at work November 2022- vision, balance, gait, cognitive difficulties, and migraine phenotype headaches. Code(s): F07.81 - Postconcussional syndrome Category: Medical (2) Cognitive and neurobehavioral dysfunction following brain injury: Code(s): G31.89 - Other specified degenerative diseases of nervous system; F09 - Unspecified mental disorder due to known physiological condition; S06.9XAS - Unspecified intracranial injury with loss of consciousness status unknown, sequela Category: Medical (3) Difficulty balancing: Code(s): R29.818 - Other symptoms and signs involving the nervous system Category: Medical (4) Snoring: Code(s): R06.83 - Snoring Category: Medical (5) Daytime sleepiness: Code(s): R40.0 - Somnolence Category: Medical (6) Fatigue: Code(s): R53.83 - Other fatigue Category: Medical (7) Migraine without aura: Comment: post-traumatic Code(s): G43.009 - Migraine without aura, not intractable, without status migrainosus Category: Medical Plan For overall postconcussive syndrome management: Continue to optimize good self-care, including but not limited to maintaining a healthy diet, adequate fluid intake, adequate sleep, and engaging in regular physical activity. Track headaches. Pt has completed PT for vestibular and gait tx- which was helpful though patient is still prone to dizziness imbalance difficulties Will refer for OT eval & tx- for post-concussive cognitive tx Patient advised to undergo HST to assess for sleep apnea- note we will processes through patient's regular health insurance. Review of recent labs shows low thiamine level, we will initiate thiamine supplement order- again through patient's regular health insurance. ? For acute headache treatment: Continue Sumatriptan 100mg tab, 1/2 - 1 tab (50-100mg) at onset of headache, may repeat in 2 hours. Max of 2 tabs (200mg) per 24 hours. May adjunct with OTC Tylenol 650mg q 4 hours, Ibuprofen 600mg q 6 hours, or Naproxen 440mg q 12 hrs prn. May continue Ibuprofen or Tylenol prn mild-moderate headache. Previous acute tx trial- None Acute migraine medication contraindications: None at this time ? For headache prevention medication: Continue Riboflavin 400mg qam Continue Magnesium 400-500mg qhs. Continue Venlafaxine ER per psychiatry Previous other preventative medication use: Previously may have tried nortriptyline- unsure effect. Migraine prevention medication contraindications: Aimovig d/t GI s/s. ? Pt advised to abstain from work through f/u visit. ? Pt to follow-up in 3-6 months or sooner prn. Orders: Orders OT Evaluation and Treatment Today ATUL Gudino F07.81 - Postconcussional syndrome, F09 - Unspecified mental disorder due to known physiological condition, G31.89 - Other specified degenerative diseases of nervous system, S06.9XAS - Unspecified intracranial injury with loss of consciousness status unknown, sequela RT home sleep study Today ATUL Gudino R06.83 - Snoring, R40.0 - Somnolence, R53.83 - Other fatigue Medications: New thiamine HCl (vitamin B1) 100 mg PO DAILY 30 days 30 tabs 6RF ATUL Gudino Changed From methylphenidate HCl ER (Concerta) Partial Fill upon patient request. 54 mg PO DAILY 60 days 60 tabs 0RF To methylphenidate HCl ER (Concerta) Partial Fill upon patient request. 57 mg PO DAILY Rashaad Harp MD Refilled sumatriptan succinate (0.5 - 1 x 100 mg) 50 - 100 mg orally at onset of headache, may repeat in 2 hrs PRN; max 2 tabs per day or 4 tabs/week (may take with Ibuprofen) 30 days 12 tabs 6RF migraine headache ATUL Gudino Coding Level of Care Code Est Pt Level 4 (70949) Diagnoses Postconcussive syndrome F07.81 Cognitive and neurobehavioral dysfunction following brain injury G31.89; F09; S06.9XAS Difficulty balancing R29.818 Snoring R06.83 Daytime sleepiness R40.0 Fatigue R53.83 Migraine without aura G43.009
--- OUTSIDE RECORDS SUMMARY | 2024-10-10 09:38 | XMS_ITS | Clinical Summary ---
Author Organization [facility] Address [address] [place] [address] Care Team Providers Care Insurance Sales Executive Name Role Phone Christina Marin MD Primary Care Provider Medical History Medical History Date Comments Essential (primary) hypertension DX:Essential (primary) hypertension Mixed hyperlipidemia DX:Mixed hy perlipidemia Social History Tobacco Use Types Packs/Day Years Used Date Smoking Tobacco: Never Assessed Sex and Gender Information Value Date Recorded Sex Assigned at Not on file Gender Identity Not on file Sexual Orientation Not on file Obstetrics History Last Filed Vital Signs Vital Sign Reading Time Taken Comments Blood Pressure - - Pulse - - Temperature - - Respiratory Rate - - Oxygen Saturation - - Inhaled Oxygen Concentration - - Weight 112 kg (248 lb) 03/23/2023 9:18 AM EDT Height 167.6 cm (5' 6 ) 03/23/2023 9:18 AM EDT Body Mass Index 40.03 03/23/2023 9:18 AM EDT Plan of Treatment Health Maintenance Due Date Last Done Comments Breast Cancer Screening 1965 DTaP,Tdap,and Td Vaccines (1 - Tdap) 1984 Hepatitis B Vaccines (1 of 3 - 19+ 3-dose series) 1984 Cervical Cancer Screening: P ap Smear 1986 Zoster Vaccines (1 of 2) 2015 Colorectal Cancer Screening: Colonoscopy 10/12/2023 Depression Screening 10/12/2023 HIV Screening 10/12/2023 Hepatitis C Screening 10/12/2023 Social Influencers of Health Screening 10/12/2023 COVID-19 Vaccine ( - 2023-2 5 season) 2024 Influenza Vaccine (#1) 2024 RSV Immunization Patients 60 + Years Old (1 - 1-dose 75+ series) 2040 HIB Vaccines Aged Out No longer eligi ble based on patient's age to complete this topic HPV Vaccines Aged Out No longer eligi ble based on patient's age to complete this topic Hepatitis A Vaccines Aged Out No long er eligible based on patient's age to complete this topic IPV Vaccines Aged Out No longer eligi ble based on patient's age to complete this topic MMR Vaccines Aged Out No longer eligi ble based on patient's age to complete this topic Meningococcal ACWY Vaccine Aged Out N o longer eligible based on patient's age to complete this topic Pneumococcal Vaccine: Pediat rics (0 to 5 Years) and At-Risk Patients (6 to 64 Years) Aged Out No longer eligible b ased on patient's age to complete this topic RSV Immunization Patients Un frank 20 months Aged Out No longer eligible b ased on patient's age to complete this topic Varicella Vaccines Aged Out No longer eligible based on patient's age to complete this topic Care Teams Insurance Sales Executive Relationship Specialty Start Date End Date Christina Marin MD [address] [place] [id number] PCP - General 02/01/23
--- OUTSIDE RECORDS SUMMARY | 2024-10-10 09:38 | XMS_ITS | Data Portability ---
Author Organization [facility], [address] Address [address] [place] [address] Care Team Providers Care Resolution Rep Name Role Phone NIKHIL HUFF Primary Care Provider Assessment No assessment recorded. Plan of Treatment Reminders Order Date Submit Date Provider Last Modified By Organization Details Last Modified Time Details Appointments None recorded. Lab SARS CoV 2 (COVID-19) Ag, QL, IA, upper respiratory specimen 2023 024 [email or web address] [facility] [address], [address] [place], [address], 4 19:53:58 Referral None recorded. Procedures None recorded. Surgeries None recorded. Imaging XR, tibia + fibula, 2 view 2022 023 [place] [facility], [address] [facility] [place], [address], 3 17:03:07 Medication Orders naproxen 500 mg tablet 2022 023 [place], [place] - [id number], [address] [place], [address], 3 14:53:22 omeprazole 20 mg capsule,del ayed release 2022 023 [place] - [id number], [address] [place], [address], 3 14:53:20 prednisone 20 mg tablet 2023 024 [id number], [address] [place], [place], [id number], 4 19:54:03 azithromyci n 250 mg tablet 2023 024 [facility] #[id number], [address] [place], [place], [id number], 19:54:03 Patient TargetsNo targets recorded. Patient Instructions Encounter Date Encounter Id Patient Instructions Last Modified By Organization Details Last Modified Time 10/10/2023 [id number] COPD exacerbatio n plan: care instructions [email or web address] Not available 10/10/2023 19:53:56 Reason for Referral None Reported. Results Created Date Observation Date Name Description Value Unit Range Abnormal Flag Note LastModifiedBy Organization Detail LastModifiedTime 10/10/1910/10/2023 SARS CoV 2 (COVI D-19) Ag, QL, IA, upper respi rator y speci men Unknown Analyte negati ve Not Available [facility] [address] [place], [address], 10/10/2023 19:17:04 10/10/19 24 10/10/2023 SARS CoV 2 (COVI D-19) Ag, QL, IA, upper respi rator y speci men Unknown Analyte yes Not Available [address] [place] [address] [address] [place], [address], 10/10/2023 19:17:04 11/28/19 23 11/27/2022 XR, tibia + fibul a, 2 view No observ ation record ed. [email or web address] [address] [facility], [place], [address], 11/27/2022 17:12:16 Result Notes None recorded. Problems Name Problem SNOMED Code Status Onset Date Resolution Date Notes Provider Name and Address Organization Details Recorded Time Chronic colitis 26081258 Active 2022 NICOLAS hill, [place] - [facility] 3 14:28:38 Allergic asthma 550332696 Active 2022 NICOLAS hill, PA - [facility] 3 14:29:08 Concussion injury of brain 144929769 Active 2022 fell x couple of weeks [...] XR, tibia + fibula, 2 view completed [facility] [address] [place] [address], [address], 11/27/2022 17:12:16 Procedure Notes None recorded. Medical Equipment None Reported. Allergies Allergen ID Allergen Name Allergen Category Reaction Reaction Severity Criticality Documentation Date Start Date Code Code System Note Provider Name and Address Organization Details Recorded Time 313854 Cipro medicatio n rash Not available Not available 11/27/202250934 3 RxNorm [facility] t Available Vitals Date Recorded Body height Provider Name an d Address Organization Details Last Updated DateTime 11/27/2022 167.64 cm NICOLAS DENISHALESLEE PA - [facility] 11/27/2022 14:23:27 Date Recorded Body mass index (BMI) Body weight Provider Name and Address Organization Details Last Updated DateTime 11/27/2022 38.7 kg/m2 107664.17 g NICOLAS HAYLIE PA - [facility] 11/27/2022 14:23:30 Date Recorded Body temperature Provider Name a nd Address Organization Details Last Updated DateTime 11/27/2022 97 [degF] NICOLAS DENISHALESLEE PA - [facility] 11/27/2022 14:31:50 Date Recorded Oxygen saturation Oxygen saturation in Arterial blood by Pulse oximetry Provider Name and Address Organization Details Last Updated DateTime 11/27/2022 97 % 97 % NICOLASWilfredo STALLINGS PA - [facility] 11/27/2022 14:32:30 Date Recorded Heart rate Provider Name an d Address Organization Details Last Updated DateTime 11/27/2022 76 /min NICOLAS STALLINGS PA - [facility] 11/27/2022 14:32:32 Date Recorded Respiratory rate Provider Name a nd Address Organization Details Last Updated DateTime 11/27/2022 16 /min NICOLAS STALLINGS PA - [facility] 11/27/2022 14:32:34 Date Recorded Body height Provider Name an d Address Organization Details Last Updated DateTime 10/10/2023 167.64 cm Linda Alvarez PA - [facility] 10/10/2023 19:15:58 Date Recorded Body mass index (BMI) Body weight Provider Name and Address Organization Details Last Updated DateTime 10/10/2023 38.7 kg/m2 183697.17 g Linda Alvarez PA - [facility] 10/10/2023 19:16:03 Date Recorded Oxygen saturation Oxygen saturation in Arterial blood by Pulse oximetry Provider Name and Address Organization Details Last Updated DateTime 10/10/2023 96 % 96 % Linda Alvarez PA - [facility] 10/10/2023 19:16:14 Date Recorded Heart rate Provider Name an d Address Organization Details Last Updated DateTime 10/10/2023 93 /min Linda Alvarez PA - [facility] 10/10/2023 19:16:17 Date Recorded Respiratory rate Provider Name a nd Address Organization Details Last Updated DateTime 10/10/2023 18 /min Linda Alvarez PA - [facility] 10/10/2023 19:16:19 Date Recorded Body temperature Provider Name a nd Address Organization Details Last Updated DateTime 10/10/2023 96.3 [degF] Linda Alvarez PA - [facility] 10/10/2023 19:16:22 Date Recorded Systolic blood pressure Diastolic blood pressure Provider Name and Address Organization Details Last Updated DateTime 11/27/2022 125 mm[Hg] 85 mm[Hg] NICOLAS STALLINGS PA - [facility] 11/27/2022 14:33:05 Date Recorded Systolic blood pressure Diastolic blood pressure Provider Name and Address Organization Details Last Updated DateTime 10/10/2023 121 mm[Hg] 79 mm[Hg] Linda Alvarez PA - [facility] 10/10/2023 19:16:11 Social History Question Answer Notes LastModified by Organizat ion Details LastModified Time Tobacco Smoking Status Never Smoker NICOLAS hill, PA - [facility] 11/27/2022 14:30:35 What Is Your Level Of Alcohol Consumption? None [email or web address] Information not available 11/27/2022 Have You Had A Flu Shot This Season? No Information not available 10/10/2023 What Was The Date Of Your Most Recent Tobacco Screening? 10/10/2023 [email or web address] Information not available 10/10/2023 Do You Use Any Illicit Or Recreational Drugs? No [email or web address] Information not available 11/27/2022 Have You Recently Traveled Abroad? No [email or web address] Information not available 11/27/2022 Do You Or Have You Ever Used Any Other Forms Of Tobacco Or Nicotine? No Information not available 11/27/2022 Sex: Unknown Functional Status None recorded. Mental Status None recorded. Family History Relationship Description Onset Age of this Age Resolved Age Notes LastModified by Organization Details LastModified Time Father No current problems or disability [email or web address] Not available 11/27 14:29:41 Mother No current problems or disability [email or web address] Not available 11/27 14:29:41 Medical History No medical history recorded. Gynecological HistoryNo gynecological history recorded. Obstetrics History GPAL:G 0 P 0 0 0 0 Past Encounters Encounter ID Performer Location Encounter Start Date Encounter Closed Date Diagnosis/Indication Diagnosis SNOMED-CT Code Diagnosis ICD10 Code Diagnosis Note [id number] [address] [place] [address] 12/08/2021 15:29:52 12/08/2021 17:54:35 [id number] [address] [address] 08/11/2018 08:11:51 08/11/2018 09:08:09 [id number] [address] [place] [address] 10/10/2021 08:40:17 10/10/2021 09:29:07 [id number] Mario Pond DO [address] [address] 11/27/2022 12:37:16 11/27/2022 15:56:48 Pain of left lower leg 7055588777 99242 M79.662 recommend NSAID w/ PPI x 7dtopical analgesiai cegentle stretching f/u with PCP and referral to Ortho or PT prn no improvemen t Discussed concerning red flags with patient and reasons to follow up in the Emergency Department urgently. Patient advised to follow up as needed for worsening symptoms or no improvemen t. [id number] KATYA Cooper [address] [place] [address] 10/10/2023 18:56:05 10/10/2023 19:56:26 Exacerbation of moderate persistent asthma 703699076 J45.41 Health Concerns Section Related Observation LastModified by Organization Detai ls LastModified Time None Recorded Concern Status LastModified by Organization Details LastModified Time None Recorded Advance Directives Directive None Recorded Payers Encounter Date Sequence Insurance Name Policy Number Policy Garcia Covered Member ID Garcia Member ID Guarantor Name 10/10/2021 1 [employer] [place] [id number] Jaycee Velásquez [id number] Jaycee Velásquez 12/08/2021 1 [employer] [place] [id number] Jaycee Didier [id number] Jaycee Velásquez 11/27/2022 1 [employer] [id number] Jaycee Didier [id number] Jaycee Didier 10/10/2023 FEE FOR SERVICE Jaycee Didier Notes Date Note Type Note Provider Name and Address Organization Details Recorded Time 11/28/19 23 text/htm l Lower Leg UCReported bypatient.Notes:57 y o c/o pain in L hill x 1 d no traumarecently started walking more no otc meds, no iceno bruising or rash\no weaknessno numbness/tingling Mario Pond DO [address] [place], [address], [place] - [facility] 11/27/2022 15:53:15 10/10/19 24 text/htm l CoughReported bypatient.source of patient informationInformation obtained from patient; Patient arrived at Urgent Care ambulatory Quality:harsh;productive cough; intermittent Severity:moderate; not really improving Duration:6 days Timing:gradual Associated Symptoms:no fever; no chills; no chest pain;wheezing KATYA Gandhi [address] [place], [address], PA - [facility] 10/10/2023 19:54:12 OBGyn Episode No OBEpisode recorded.
== END 2024-10-10 10:32 | disposition home or self-care (01) ==
PROVIDERS: PCP Internal Medicine; Visit Provider Nurse Practitioner Family
DX: S06.9XAS Unspecified intracranial injury with loss of consciousness status unknown, sequela (principal); G31.89 Other specified degenerative diseases of nervous system; F09 Unspecified mental disorder due to known physiological condition; R29.818 Other symptoms and signs involving the nervous system; F07.81 Postconcussional syndrome; R06.83 Snoring; R40.0 Somnolence; R53.83 Other fatigue; G43.009 Migraine without aura, not intractable, without status migrainosus
CPT/HCPCS: 99214

== ENCOUNTER → 2024-10-10 09:11 | Outpatient (BNVA) | payer OTHER, SELFPAY | PROVIDERS: PCP Internal Medicine; Visit Provider Nurse Practitioner Family | DX: F07.81 Postconcussional syndrome (principal); G31.89 Other specified degenerative diseases of nervous system; R29.818 Other symptoms and signs involving the nervous system; R06.83 Snoring; R40.0 Somnolence; R53.83 Other fatigue; G43.009 Migraine without aura, not intractable, without status migrainosus; S06.9XAS Unspecified intracranial injury with loss of consciousness status unknown, sequela; X58.XXXS Exposure to other specified factors, sequela | CPT/HCPCS: 99212 ==

== ENCOUNTER → 2024-11-02 12:02 | Outpatient (BNVA) | payer OTHER, SELFPAY | PROVIDERS: PCP Internal Medicine; Visit Provider Psychiatry & Neurology Psychiatry ==

== ENCOUNTER 2024-11-28 12:58 | Outpatient (REF) | payer OTHER, SELFPAY ==
--- OUTSIDE RECORDS SUMMARY | 2024-11-28 15:09 | XMS_ITS | Continuity of Care Document ---
Author Organization [facility] Adult Address [address] [place] [address]- Support Name Relationship Address Phone STEPHANI NOBLE [...] Unknown Unava ilable Care Team Providers Care Clinical Administrator Name Role Phone Tania GARCIA, Christina Primary Care Physician [facility]counter [facility] Date(s): 10/06/24 - 11/05/[address] [address] Encounter Type: Triage Allergies, Adverse Reactions, Alerts Substance Criticality Severity Reaction Reaction Severity Status ciprofloxacin Active Cipro Rash Active Bactrim Anxiety Active Femstat 3 Pruritus Active Immunizations Given and Recorded Vaccine Date Status Refusal Reason [id number] 12y+ bivalent booster vax 09/08/22 Recorded influenza [...] Diphth-Tetanus Toxoids Adsorbed(oldterm) 04/20/06 Given 1Result Comment: 26410-584-48 2Location History: Pt stated 3Admin Note: at work Medications Albuterol (Eqv-ProAir HFA) 90 mcg/inh inhalation aerosol 2 inhalation, Inhalation, 4 times a day, PRN NEEDED FOR WHEEZING, # 34 Gm, 3 Refills, Maintenance, 01/03/24 3:39:00 PM EDT, [place], [place] - [phone], 90, 2 inhalation Inhalation 4 times a day,PRN: NEEDED FOR WHEEZING, 168, cm, 01/03/24 15:30:00 EDT, Height Start Date: 01/03/24 Status: Ordered Quantity: 34.0 Unit: g Repeat number: 4 atorvastatin 20 mg oral tablet 1 tablet, By Mouth, Daily at bedtime, # 90 tablet, 1 Refills, Maintenance, 06/22/24 8:41:00 AM EDT,[place], [place] - [id number], 168, cm, 01/03/24 15:30:00 EDT, Height Start [...] 5:09:00 PM EDT, Route to Pharmacy Electronically, [id number], [facility] [id number], 168, cm, 01/03/24 15:30:00EDT, Height Start Date: 06/22/24 Status: Ordered Quantity: 180.0 Unit: each Repeat number: 4 losartan 25 mg oral tablet 25 mg, 1, tablet, By Mouth, Daily, # 90 tablet, Refills 3, Tot. Refills 3, Maintenance, 06/22/24 8:54:00 AM EDT, Route to Pharmacy Electronically, [facility] [id number], Partial fill upon patient request if the [...] sites, # 4 each, 0 Refills, Maintenance, 09/21/24 12:24:00 PM EST, Solution, [place], [place] - [id number], Partial fill upon patient request if the prescription is for a schedule II opioid drug., 168, cm, 08/21/24 9:42:00 EST, Height Start Date: 09/21/24 Status: Ordered Quantity: 4.0 Unit: each Repeat [...] Team Personnel Name: Christina Marin MD Position: [facility] Physician - Primary Care Member Role: PCP Address: [address] [place] [address] Telecom: Care Team Related Persons Name: STEPHANI NOBLE Insurance Providers Guarantor name: AILIN NOBLE [employer] Plan Information #: 1 Payer: [employer]LEY HMO Member Number: NA Policy Number: NA Group Number: NA
--- OUTSIDE RECORDS SUMMARY | 2024-11-28 15:09 | XMS_ITS | Clinical Summary ---
Author Organization [facility] Address [address] [place] [address] Care Team Providers Care Joy Loader Name Role Phone Christina Marin MD Primary Care Provider Medical History Medical History Date Comments Essential (primary) hypertension DX:Essential (primary) hypertension Mixed hyperlipidemia DX:Mixed hy perlipidemia Social History Tobacco Use Types Packs/Day Years Used Date Smoking Tobacco: Never Assessed Comments Unknown Sex and Gender Information Value Date Recorded Sex Assigned at Not on file Legal Sex Female 10:29 PM EST Gender Identity Not on file Sexual Orientation [...] Cervical Cancer Screening: P ap Smear 1986 Pneumococcal Vaccine: 50+ Ye ars (1 of 1 - PCV) 2015 Zoster Vaccines (1 of 2) 2015 Colorectal Cancer Screening: Colonoscopy 10/12/2023 Depression Screening 10/12/2023 HIV Screening 10/12/2023 Hepatitis C Screening 10/12/2023 Social Influencers of Health Screening 10/12/2023 COVID-19 Vaccine (1 - 2023-2 5 season) 2024 Influenza Vaccine [...] patient's age to complete this topic Meningococcal B Vacine Aged Out No lo nger eligible based on patient's age to complete [...] age to complete this topic Care Teams Joy Loader Relationship Specialty Start Date End Date Christina Marin MD [address] [place] [address] PCP - General 02/01/23
--- OUTSIDE RECORDS SUMMARY | 2024-11-28 15:09 | XMS_ITS | Continuity of Care Document ---
Author Organization [facility] Adult Address [address] [place] [address]- Support Name Relationship Address Phone STEPHANI NOBLE Personal Relationship Unknown Unava ilable REAL, STEPHANI Personal Relationship Unknown Unava ilable JAMES, ADIS Personal Relationship Unknown Unava ilable REAL, STEPHANI Personal Relationship Unknown Unava ilable REAL, STEPHANI Personal Relationship Unknown Unava ilable REAL, STEPHANI Personal Relationship Unknown Unava ilable REAL, TSEPHANI Personal Relationship Unknown Unava ilable JAMES, ADIS [...] Unknown Unava ilable Care Team Providers Care Fireman Helper Name Role Phone Tania GARCIA, Christina Primary Care Physician Encounter [facility] Date(s): 10/09/24 - 11/08/[address] [address]- Encounter Type: Triage Allergies, Adverse Reactions, Alerts Substance Criticality Severity Reaction Reaction Severity Status ciprofloxacin Active Cipro Rash Active Bactrim Anxiety Active Femstat 3 Pruritus Active Immunizations Given and Recorded Vaccine Date Status Refusal Reason [id number] 12y+ bivalent booster vax 09/08/22 Recorded influenza [...] Diphth-Tetanus Toxoids Adsorbed(oldterm) 04/20/06 Given 1Result Comment: 34151-631-05 2Location History: Pt stated 3Admin Note: at work Medications Albuterol (Eqv-ProAir HFA) 90 mcg/inh inhalation aerosol 2 inhalation, Inhalation, 4 times a day, PRN NEEDED FOR WHEEZING, # 34 Gm, 3 Refills, Maintenance, 01/03/24 3:39:00 PM EDT, [place], [place] - [phone], 90, 2 inhalation Inhalation 4 times a day,PRN: NEEDED FOR WHEEZING, 168, cm, 01/03/24 15:30:00 EDT, Height Start Date: 01/03/24 Status: Ordered Quantity: 34.0 Unit: g Repeat number: 4 atorvastatin 20 mg oral tablet 1 tablet, By Mouth, Daily at bedtime, # 90 tablet, 1 Refills, Maintenance, 06/22/24 8:41:00 AM EDT,[place], [place] - [id number], 168, cm, 01/03/24 15:30:00 EDT, Height Start [...] 5:09:00 PM EDT, Route to Pharmacy Electronically, [id number], [facility] [id number], 168, cm, 01/03/24 15:30:00EDT, Height Start Date: 06/22/24 Status: Ordered Quantity: 180.0 Unit: each Repeat number: 4 losartan 25 mg oral tablet 25 mg, 1, tablet, By Mouth, Daily, # 90 tablet, Refills 3, Tot. Refills 3, Maintenance, 06/22/24 8:54:00 AM EDT, Route to Pharmacy Electronically, [facility] [id number], Partial fill upon patient request if the [...] Refills, Maintenance, 09/21/24 12:24:00 PM EST, Solution, [place], [place] - [id number], Partial fill upon patient request if the [...] Team Personnel Name: Christina Marin MD Position: [facility] Physician - Primary Care Member Role: PCP Address: [address] [place] [id number] Telecom: Care Team Related Persons Name: STEPHANI NOBLE Insurance Providers Guarantor name: AILIN NOBLE [employer] Plan Information #: 1 Payer: Y[employer]IRA FOLEY HMO Member Number: NA Policy Number: NA Group Number: NA
--- OUTSIDE RECORDS SUMMARY | 2024-11-28 15:09 | XMS_ITS | Data Portability ---
Author Organization [facility], [address] Address [address] [place] [address] Care Team Providers Care Silverware Washer Name Role Phone NIKHIL HUFF Primary Care Provider [phone] Assessment No assessment recorded. Plan of Treatment Reminders Order Date Submit Date Provider Last Modified By Organization Details Last Modified Time Details Appointments None recorded. Lab SARS CoV 2 (COVID-19) Ag, QL, IA, upper respiratory specimen 2023 024 [email or web address] [facility] [address], [address] [place], [address], 19:53:58 Referral None recorded. Procedures None recorded. Surgeries None recorded. Imaging XR, tibia + fibula, 2 view 2022 023 [facility], [address] [facility], [place], [address], 3 17:03:07 Medication Orders prednisone 20 mg tablet 2023 024 [facility]187, [address] [place], [place], [phone], 4 19:54:03 azithromyci n 250 mg tablet 2023 024 [facility], [address] [place], [place], [id number], 4 19:54:03 naproxen 500 mg tablet 2022 023 [place] - [id number], [address] [place], [address], 3 14:53:22 omeprazole 20 mg capsule,del ayed release 2022 023 [place] - [id number], [address] [place], [address], 3 14:53:20 Patient TargetsNo targets recorded. Patient Instructions Encounter Date Encounter Id Patient Instructions Last Modified By Organization Details Last Modified Time 10/10/2023 [id number] COPD exacerbatio n plan: care instructions [email or web address] Not available 10/10/2023 19:53:56 Reason for Referral None Reported. Results Created Date Observation Date Name Description Value Unit Range Abnormal Flag Note LastModifiedBy Organization Detail LastModifiedTime 10/10/1910/10/2023 SARS CoV 2 (COVI D-19) Ag, QL, IA, upper respi rator y speci men Unknown Analyte negati ve Not Available [facility] [address] [place], [address], 10/10/2023 19:17:04 10/10/19 24 10/10/2023 SARS CoV 2 (COVI D-19) Ag, QL, IA, upper respi rator y speci men Unknown Analyte yes Not Available [address] [place] [address] [address] [place], [address], 10/10/2023 19:17:04 11/28/19 23 11/27/2022 XR, tibia + fibul a, 2 view No observ ation record ed. [email or web address] [facility] [address] [facility], [place], [address], 11/27/2022 17:12:16 Result Notes None recorded. Problems Name Problem SNOMED Code Status Onset Date Resolution Date Notes Provider Name and Address Organization Details Recorded Time Chronic colitis 73957940 Active 2022 NICOLAS hill, [place] - [facility] 3 14:28:38 Allergic asthma 757442102 Active 2022 NICOLAS hill, [place] - [facility] 3 14:29:08 Concussion injury of brain 261056380 Active 2022 fell x couple of weeks [...] XR, tibia + fibula, 2 view completed [facility] [address] [place] [address], [address], 11/27/2022 17:12:16 Procedure Notes None recorded. Medical Equipment None Reported. Allergies Allergen ID Allergen Name Allergen Category Reaction Reaction Severity Criticality Documentation Date Start Date Code Code System Note Provider Name and Address Organization Details Recorded Time 914199 Cipro medicatio n rash Not available Not available 11/27/202247692 3 RxNorm N[facility]OLAS [facility], [facility] - [facility] [...] Updated DateTime 3 167.64 cm 38.7 kg/m2 146379. 17 g 97 [degF] 97 % 97 [...] Updated DateTime 4 167.64 cm 38.7 kg/m2 344712. 17 g 96 % 96 % 93 /min 18 /min 96.3 [degF] 121 mm[Hg] 79 mm[Hg] Linda Alvarez PA - [facility] 4 19:16:11 Social History Question Answer Notes LastModified by Organizat ion Details LastModified Time Tobacco Smoking Status Never Smoker NICOLAS ihll PA - [facility] 11/27/2022 14:30:35 What Is Your Level Of Alcohol Consumption? None [email or web address] Information not available 11/27/2022 Have You Had A Flu Shot This Season? No Information not available 10/10/2023 What Was The Date Of Your Most Recent Tobacco Screening? 10/10/2023 [email or web address] Information not available 10/10/2023 Do You Use Any Illicit Or Recreational Drugs? No Information not available 11/27/2022 Have You Recently Traveled Abroad? No [email or web address] Information not available 11/27/2022 Do You Or Have You Ever Used Any Other Forms Of Tobacco Or Nicotine? No [email or web address] Information not available 11/27/2022 Sex: Unknown Functional Status None recorded. Mental Status None recorded. Family History Relationship Description Onset Age of this Age Resolved Age Notes LastModified by Organization Details LastModified Time Father No current problems or disability [email or web address] Not available 11/27 14:29:41 Mother No current problems or disability [email or web address] Not available 11/27 14:29:41 Medical History No medical history recorded. Gynecological HistoryNo gynecological history recorded. Obstetrics History GPAL:G 0 P 0 0 0 0 Past Encounters Encounter ID Performer Location Encounter Start Date Encounter Closed Date Diagnosis/Indication Diagnosis SNOMED-CT Code Diagnosis ICD10 Code Diagnosis Note [id number] [address] [place] [address] 12/08/2021 15:29:52 12/08/2021 17:54:35 [id number] [facility] [address] [address] 08/11/2018 08:11:51 08/11/2018 09:08:09 [id number] [address] [place] [address] 10/10/2021 08:40:17 10/10/2021 09:29:07 [id number] Mario Pond DO [address] [address] 11/27/2022 12:37:16 11/27/2022 15:56:48 Pain of left lower leg 8050802677 99540 M79.662 recommend NSAID w/ PPI x 7dtopical analgesiai cegentle stretching f/u with PCP and referral to Ortho or PT prn no improvemen t Discussed concerning red flags with patient and reasons to follow up in the Emergency Department urgently. Patient advised to follow up as needed for worsening symptoms or no improvemen t. [id number] KATYA Cooper [address] [place] [address] 10/10/2023 18:56:05 10/10/2023 19:56:26 Exacerbation of moderate persistent asthma 608650510 J45.41 Health Concerns Section Related Observation LastModified by Organization Detai ls LastModified Time None Recorded Concern Status LastModified by Organization Details LastModified Time None Recorded Advance Directives Directive None Recorded Payers Encounter Date Sequence Insurance Name Policy Number Policy Garcia Covered Member ID Garcia Member ID Guarantor Name 10/10/2021 1 [employer] [id number] Jaycee Velásquez [id number] Jaycee Velásquez 12/08/2021 1 [employer] [place] [id number] Jaycee Velásquez [id number] Jaycee Velásquez 11/27/2022 1 [employer] [id number] Jaycee Didier [id number] Jaycee Didier 10/10/2023 FEE FOR SERVICE Jaycee Velásquez Notes Date Note Type Note Provider Name and Address Organization Details Recorded Time 11/28/19 23 text/htm l Lower Leg UCReported bypatient.Notes:57 y o c/o pain in L hill x 1 d no traumarecently started walking more no otc meds, no iceno bruising or rash\no weaknessno numbness/tingling Mario Pond DO [address] [place], [address], [place] - [facility] 11/27/2022 15:53:15 10/10/19 24 text/htm l CoughReported bypatient.source of patient informationInformation obtained from patient; Patient arrived at Urgent Care ambulatory Quality:harsh;productive cough; intermittent Severity:moderate; not really improving Duration:6 days Timing:gradual Associated Symptoms:no fever; no chills; no chest pain;wheezing KATYA Gandhi [address] [place], [address], [place] - [facility] 10/10/2023 19:54:12 OBGyn Episode No OBEpisode recorded.
--- NOTE | 2024-11-29 11:16 | MHC.AU.HA1 ---
Hearing Aid Evaluation Date of Visit: 11/28/24 Historical Information: Description of Hearing: Within normal to 1.5kHz sloping to severe sensorineural hearing loss Ad, within normal to 1kHz precipitously sloping to profound sensorineural hearing loss As. Current personal amplification information, if applicable: none Summary: Jaycee reports hearing loss As since childhood. Previously tried a hearing aid and was overwhelmed by amplification and ultimately rejected it. Jaycee reports she has grown increasingly frustrated with difficulty hearing and is ready to try amplification again. Discussed options. Counseled on adjustment to amplification. Hearing Aid Prescription: Based on the individual?s shared listening needs, communication environments, dexterity, desire for connectivity, and personal preferences, the following prescription for amplification has been made: Right ear: Make, Model, Color: Oticon Intent 2 R blue Battery Size: Rechargeable Grinder Set Up Operator Universal/Slim Tube: 2 85 Type of Earmold/Dome/CShell/SlimTip: 8mm dbl [email or web address] Left ear: Make, Model, Color: Oticon Intent 2 R blue Battery Size: Rechargeable Grinder Set Up Operator Universal/Slim Tube: 2/85 Type of Earmold/Dome/CShell/SlimTip: 8mm dbl [email or web address] Plan of Care: Patient wishes to purchase hearing aids as prescribed Action Taken/Action Needed: Prior authorization to be requested Medical Clearance to be requested from PCP/ENT Hearing Instrument Fitting to be scheduled when materials arrive Primary Diagnosis: H90.3 Bilateral Sensorineural Hearing Loss Signature: Provider: Phyllis Phelps, CCC-A
== END 2024-11-28 12:59 | disposition home or self-care (01) ==
LOC: HO.SH 12:58
PROVIDERS: Visit Provider Internal Medicine
DX: Z01.118 Encounter for examination of ears and hearing with other abnormal findings (principal); Z46.1 Encounter for fitting and adjustment of hearing aid; H90.3 Sensorineural hearing loss, bilateral
CPT/HCPCS: 92557; 92567; 92591

== ENCOUNTER → 2024-12-19 09:56 | Outpatient (REF) | payer OTHER, SELFPAY ==
--- OUTSIDE RECORDS SUMMARY | 2024-12-19 11:29 | XMS_ITS | Clinical Summary ---
Author Organization [facility] Address [address] [place] [address] Care Team Providers Care Skidder Lever Operator Name Role Phone Christina Marin MD Primary [...] 2024 Influenza Vaccine (#1) 2024 RSV Immunization Adult Patie nts (1 - 1-dose 75+ series) 2040 HIB [...] age to complete this topic Meningococcal B Vaccine Aged Out No l onger eligible based on patient's age to complete [...] age to complete this topic Care Teams Skidder Lever Operator Relationship Specialty Start Date End Date Christina Marin MD [address] [place] [address] PCP - General 02/01/23
--- OUTSIDE RECORDS SUMMARY | 2024-12-19 11:29 | XMS_ITS | Data Portability ---
Author Organization [facility], [address] Address [address] [place] [address] Care Team Providers Care Screw Machine Set Up Operator Name Role Phone NIKHIL HUFF Primary Care Provider Assessment No assessment recorded. Plan of Treatment Reminders Order Date Submit Date Provider Last Modified By Organization Details Last Modified Time Details Appointments None recorded. Lab SARS CoV 2 (COVID-19) Ag, QL, IA, upper respiratory specimen 2023 024 [email or web address] [facility] [address], [address] [place], [address], 19:53:58 Referral None recorded. Procedures None recorded. Surgeries None recorded. Imaging XR, tibia + fibula, 2 view 2022 023 [facility], [address] [facility], [place], [address], 3 17:03:07 Medication Orders prednisone 20 mg tablet 2023 024 [facility]32568, [address] [place], [place], [phone], 4 19:54:03 azithromyci n 250 mg tablet 2023 024 [facility]57778, [address] [place], [place], [phone], 4 19:54:03 naproxen 500 mg tablet 2022 023 [place] - [id number], [address] [place], [address], 3 14:53:22 omeprazole 20 mg capsule,del ayed release 2022 023 [place] - [id number], [address] [place], [address], 3 14:53:20 Patient TargetsNo targets recorded. Patient Instructions Encounter Date Encounter Id Patient Instructions Last Modified By Organization Details Last Modified Time 10/10/2023 [id number] COPD exacerbatio n plan: care instructions [email or web address] Not available 10/10/2023 19:53:56 Reason for Referral None Reported. Results Created Date Observation Date Name Description Value Unit Range Abnormal Flag Note LastModifiedBy Organization Detail LastModifiedTime 10/10/1910/10/2023 SARS CoV 2 (COVI D-19) Ag, QL, IA, upper respi rator y speci men Unknown Analyte negati ve Not Available [facility] [address] [place], [address], 10/10/2023 19:17:04 10/10/19 24 10/10/2023 SARS CoV 2 (COVI D-19) Ag, QL, IA, upper respi rator y speci men Unknown Analyte yes Not Available [address] [place] [address] [address] [place], [address], 10/10/2023 19:17:04 11/28/19 23 11/27/2022 XR, tibia + fibul a, 2 view No observ ation record ed. [email or web address] [facility] [address] [facility], [place], [address], 11/27/2022 17:12:16 Result Notes None recorded. Problems Name Problem SNOMED Code Status Onset Date Resolution Date Notes Provider Name and Address Organization Details Recorded Time Chronic colitis 26813733 Active 2022 NICOLAS hill, PA - [facility] 3 14:28:38 Allergic asthma 648057086 Active 2022 NICOLAS hill, PA - [facility] 3 14:29:08 Concussion injury of brain 546929013 Active 2022 fell x couple of weeks [...] XR, tibia + fibula, 2 view completed [facility] [address] [place] [address], [address], 11/27/2022 17:12:16 Procedure Notes None recorded. Medical Equipment None Reported. Allergies Allergen ID Allergen Name Allergen Category Reaction Reaction Severity Criticality Documentation Date Start Date Code Code System Note Provider Name and Address Organization Details Recorded Time 240789 Cipro medicatio n rash Not available Not available 11/27/202217163 3 RxNorm NICOLAS [facility], [place] - [facility] [...] Updated DateTime 3 167.64 cm 38.7 kg/m2 539688. 17 g 97 [degF] 97 % 97 [...] Updated DateTime 4 167.64 cm 38.7 kg/m2 755845. 17 g 96 % 96 % 93 /min 18 /min 96.3 [degF] 121 mm[Hg] 79 mm[Hg] Linda Alvarez PA - [facility] 4 19:16:11 Social History Question Answer Notes LastModified by Organizat ion Details LastModified Time Tobacco Smoking Status Never Smoker NICOLAS hill PA - [facility] 11/27/2022 14:30:35 What Is Your Level Of Alcohol Consumption? None [email or web address] Information not available 11/27/2022 Have You Had A Flu Shot This Season? No [email or web address] Information not available 10/10/2023 What Was The Date Of Your Most Recent Tobacco Screening? 10/10/2023 [email or web address] Information not available 10/10/2023 Do You Use Any Illicit Or Recreational Drugs? No [email or web address] Information not available 11/27/2022 Have You Recently Traveled Abroad? No [email or web address] Information not available 11/27/2022 Do You Or Have You Ever Used Any Other Forms Of Tobacco Or Nicotine? No Information not available 11/27/2022 Sex: Unknown Functional Status None recorded. Mental Status None recorded. Family History Relationship Description Onset Age of this Age Resolved Age Notes LastModified by Organization Details LastModified Time Father No current problems or disability [email or web address] Not available 11/27 14:29:41 Mother No current problems or disability [email or web address] Not available 11/27 14:29:41 Medical History No medical history recorded. Gynecological HistoryNo gynecological history recorded. Obstetrics History GPAL:G 0 P 0 0 0 0 Past Encounters Encounter ID Performer Location Encounter Start Date Encounter Closed Date Diagnosis/Indication Diagnosis SNOMED-CT Code Diagnosis ICD10 Code Diagnosis Note [id number] [address] [place] [address] 12/08/2021 15:29:52 12/08/2021 17:54:35 [id number] [facility] [employer] [address] 08/11/2018 08:11:51 08/11/2018 09:08:09 [id number] [address] [place] [address] 10/10/2021 08:40:17 10/10/2021 09:29:07 [id number] Mario Pond DO [address] [address] 11/27/2022 12:37:16 11/27/2022 15:56:48 Pain of left lower leg 2665269980 52387 M79.662 recommend NSAID w/ PPI x 7dtopical analgesiai cegentle stretching f/u with PCP and referral to Ortho or PT prn no improvemen t Discussed concerning red flags with patient and reasons to follow up in the Emergency Department urgently. Patient advised to follow up as needed for worsening symptoms or no improvemen t. [id number] KATYA Cooper [address] [place] [address] 10/10/2023 18:56:05 10/10/2023 19:56:26 Exacerbation of moderate persistent asthma 683146820 J45.41 Health Concerns Section Related Observation LastModified by Organization Detai ls LastModified Time None Recorded Concern Status LastModified by Organization Details LastModified Time None Recorded Advance Directives Directive None Recorded Payers Encounter Date Sequence Insurance Name Policy Number Policy Garcia Covered Member ID Garcia Member ID Guarantor Name 10/10/2021 1 [employer] [id number] Jaycee Velásquez [id number] Jaycee Velásquez 12/08/2021 1 [employer] [place] [id number] Jaycee Velásquez [id number] Jaycee Velásquez 11/27/2022 1 [employer] [id number] Jaycee Didier [id number] Jaycee Didier 10/10/2023 FEE FOR SERVICE Jaycee Velásquez Notes Date Note Type Note Provider Name and Address Organization Details Recorded Time 11/28/19 23 text/htm l Lower Leg UCReported bypatient.Notes:57 y o c/o pain in L hill x 1 d no traumarecently started walking more no otc meds, no iceno bruising or rash\no weaknessno numbness/tingling Mario Pond DO [address] [place], [address], [place] - [facility] 11/27/2022 15:53:15 10/10/19 24 text/htm l CoughReported bypatient.source of patient informationInformation obtained from patient; Patient arrived at Urgent Care ambulatory Quality:harsh;productive cough; intermittent Severity:moderate; not really improving Duration:6 days Timing:gradual Associated Symptoms:no fever; no chills; no chest pain;wheezing KATYA Gandhi [address] [place], [address], [place] - [facility] 10/10/2023 19:54:12 OBGyn Episode No OBEpisode recorded.
== END ==
LOC: HO.SL 09:56
PROVIDERS: PCP Internal Medicine; Visit Provider Nurse Practitioner Family
DX: R53.83 Other fatigue (principal); R40.0 Somnolence; R06.83 Snoring; F90.8 Attention-deficit hyperactivity disorder, other type; F41.1 Generalized anxiety disorder; F43.12 Post-traumatic stress disorder, chronic
CPT/HCPCS: 95806

== ENCOUNTER → 2024-12-19 10:06 | Outpatient (BNV) | payer OTHER, SELFPAY | PROVIDERS: PCP Internal Medicine; Visit Provider Psychiatry & Neurology Neurology | DX: G47.10 Hypersomnia, unspecified (principal); R06.83 Snoring | CPT/HCPCS: 95806 ==

== ENCOUNTER 2024-12-19 17:01 | Outpatient (AMB) | payer OTHER, SELFPAY ==
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
--- OUTSIDE RECORDS SUMMARY | 2024-12-19 19:14 | XMS_ITS | Clinical Summary ---
Author Organization [facility] Address [address] [place] [id number] Care Team Providers Care Segment Producer Name Role Phone Christina Marin MD Primary [...] age to complete this topic Care Teams Segment Producer Relationship Specialty Start Date End Date Christina Marin MD [address] [place] [address] PCP - General 02/01/23
== END 2024-12-19 17:01 | disposition home or self-care (01) ==
LOC: HO.HOP 17:01
PROVIDERS: PCP Internal Medicine; Visit Provider Psychiatry & Neurology Psychiatry
DX: F90.8 Attention-deficit hyperactivity disorder, other type (principal); F41.1 Generalized anxiety disorder; F43.12 Post-traumatic stress disorder, chronic
CPT/HCPCS: 99213

== ENCOUNTER 2025-01-18 09:42 | Outpatient (REF) | payer OTHER, SELFPAY ==
--- OUTSIDE RECORDS SUMMARY | 2025-01-18 10:30 | XMS_ITS | Clinical Summary ---
Author Organization [facility] Address [address] [place] [address] Care Team Providers Care Six Pack Loader Operator Name Role Phone Christina Marin MD [...] - 2023-2 5 season) 2024 Influenza Vaccine (Season Ended) 2025 RSV Immunization Adult Patie nts (1 - [...] age to complete this topic Care Teams Six Pack Loader Operator Relationship Specialty Start Date End Date Christina Marin MD [address] [place] [address] PCP - General 02/01/23
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
--- OUTSIDE RECORDS SUMMARY | 2025-01-18 10:30 | XMS_ITS | Continuity of Care Document ---
Author Organization [facility] Address [address] [place] [address]- Support Name Relationship Address Phone STEPHANI NOBLE [...] Unknown Unava ilable Care Team Providers Care Life Skills Consultant Name Role Phone Tania GARCIA, Christina Primary Care Physician [place] [facility] [place]14/24 - 01/13/[address] [address]- Encounter Type: Triage Allergies, Adverse Reactions, Alerts Substance Criticality Severity Reaction Reaction Severity Status ciprofloxacin Active Cipro Rash Active Femstat 3 Pruritus Active Bactrim Anxiety Active Immunizations Given and Recorded Vaccine Date Status Refusal Reason [id number] 12y+ bivalent booster vax 09/08/22 Recorded influenza [...] Diphth-Tetanus Toxoids Adsorbed(oldterm) 04/20/06 Given 1Result Comment: [id number] 2Location History: Pt stated 3Admin Note: at work Medications Albuterol (Eqv-ProAir HFA) 90 mcg/inh inhalation aerosol 2 inhalation, Inhalation, 4 times a day, PRN NEEDED FOR WHEEZING, # 34 Gm, 3 Refills, Maintenance, 01/03/24 3:39:00 PM EDT, [facility] - [place], [place] - [phone], 90, 2 inhalation Inhalation 4 times a day,PRN: NEEDED FOR WHEEZING, 168, cm, 01/03/24 15:30:00 EDT, Height Start Date: 01/03/24 Status: Ordered Quantity: 34.0 Unit: g Repeat number: 4 atorvastatin 20 mg oral tablet 1 tablet, By Mouth, Daily at bedtime, # 90 tablet, 1 Refills, Maintenance, 01/01/25 10:50:00 AM EDT,[facility], 168, cm, 08/21/24 9:42:00 EST, Height Start Date: 01/01/25 Status: Ordered Quantity: 90.0 Unit: tablet Repeat number: 1 buPROPion 300 mg/24 hours oral extended release [...] 5:09:00 PM EDT, Route to Pharmacy Electronically, [id number], [place], [place] - [phone], 168, cm, 01/03/24 15:30:00EDT, Height Start Date: 06/22/24 Status: Ordered Quantity: 180.0 Unit: each Repeat number: 4 losartan 25 mg oral tablet 25 mg, 1, tablet, By Mouth, Daily, # 90 tablet, Refills 3, Tot. Refills 3, Maintenance, 06/22/24 8:54:00 AM EDT, Route to Pharmacy Electronically, [facility] [phone], Partial fill upon patient request if the [...] Refills, Maintenance, 09/21/24 12:24:00 PM EST, [facility], [place], [place] - [phone], Partial fill upon patient request if the [...] Team Personnel Name: Christina Marin MD Position: [facility] Physician - Primary Care Member Role: PCP Address: [address] [place] [id number] Telecom: Care Team Related Persons Name: STEPHANI NOBLE Insurance Providers Guarantor name: AILIN NOBLE Health Plan Information #: 1 Payer: [employer] Member Number: NA Policy Number: NA Group Number: NA
--- NOTE | 2025-01-18 10:54 | MHC.AU.HA2 ---
Hearing Instrument Fitting- Adult- Binaural Date of Visit: 01/18/25 Hearing Instruments Dispensed: Right Ear: Make, Model, Color, Serial Number: Oticon Intent 2 R blue [id number] Painting Instructor Repair Warranty: 01/13/2028 Painting Instructor Loss and Damage Warranty: 01/13/2028 [facility] Service Plan: 01/18/2026 Battery Size: Rechargeable Grocery Deliverer/Slim Tube: 2 85 Earmold/Dome/CShell/SlimTip: 8mm dbl [email or web address] Type of Wax Guard: Oticon Minifit Prowax Left Ear: Make, Model, Color, Serial Number: Oticon Intent 2 R blue [id number] Painting Instructor Repair Warranty: 01/13/2028 Painting Instructor Loss and Damage Warranty: 01/13/2028 [facility] Service Plan: 01/18/2026 Battery Size: Rechargeable Grocery Deliverer/Slim Tube: 2/85 Earmold/Dome/CShell/SlimTip: 8mm dbl [email or web address] Type of Wax Guard: Oticon Minifit Prowax Summary of Fitting: Fit with and oriented to binaural Oticon Intent 2 HAs. Programmed and verified to DSL adult 5 targets. Set to adaptation 1 with gradual increase given Jaycee's history of rejecting amplification in the past. Counseled on adjustment to amplification. Reviewed charging, maintenance, precautions. Practiced insertion and removal. VC disabled at this time. Not connected to a phone at this time. Recommendations: Recommendations: A hearing instrument follow-up was scheduled. Diagnosis Code(s): Primary Diagnosis: H90.3 Bilateral Sensorineural Hearing Loss Signature: Provider: Phyllis Phelps, [facility]
== END 2025-01-18 09:43 | disposition home or self-care (01) ==
LOC: HO.HAP 09:42
PROVIDERS: Visit Provider Internal Medicine
DX: Z46.1 Encounter for fitting and adjustment of hearing aid (principal); H90.3 Sensorineural hearing loss, bilateral
CPT/HCPCS: V5011; V5020; V5160; V5261

== ENCOUNTER 2025-02-07 13:10 | Outpatient (AMB) | payer OTHER, SELFPAY ==
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
--- OUTSIDE RECORDS SUMMARY | 2025-02-07 13:58 | XMS_ITS | Data Portability ---
Author Organization [facility], [address] Address [address] [place] [address] Care Team Providers Care Assistant Golf Professional Name Role Phone NIKHIL HUFF Primary Care Provider [phone] Assessment No assessment recorded. Plan of Treatment Reminders Order Date Submit Date Provider Last Modified By Organization Details Last Modified Time Details Appointments None recorded. Lab SARS CoV 2 (COVID-19) Ag, QL, IA, upper respiratory specimen 2023 024 [email or web address], [address] [place], [address], 19:53:58 Referral None recorded. Procedures None recorded. Surgeries None recorded. Imaging XR, tibia + fibula, 2 view 2022 023 [facility], [address] [facility], [place], [address], 3 17:03:07 Medication Orders prednisone 20 mg tablet 2023 024 [id number], [address] [place], [place], [id number], 4 19:54:03 azithromyci n 250 mg tablet 2023 024 [facility], [address] [place], [place], [id number], 4 19:54:03 naproxen 500 mg tablet 2022 023 [place], [place] - [id number], [address] [place], [address], 3 14:53:22 omeprazole 20 mg capsule,del ayed release 2022 023 [place] [id number], [address] [place], [address], 3 14:53:20 Patient TargetsNo targets recorded. Patient Instructions Encounter Date Encounter Id Patient Instructions Last Modified By Organization Details Last Modified Time 10/10/2023 [id number] COPD exacerbatio n plan: care instructions [email or web address] Not available 10/10/2023 19:53:56 Reason for Referral None Reported. Results Created Date Observation Date Name Description Value Unit Range Abnormal Flag Note LastModifiedBy Organization Detail LastModifiedTime 10/10/1910/10/2023 SARS CoV 2 (COVI D-19) Ag, QL, IA, upper respi rator y speci men Unknown Analyte negati ve Not Available [facility] [address] [place], [address], 10/10/2023 19:17:04 10/10/19 24 10/10/2023 SARS CoV 2 (COVI D-19) Ag, QL, IA, upper respi rator y speci men Unknown Analyte yes Not Available [id number] [place] [address] [address] [place], [address], 10/10/2023 19:17:04 11/28/19 23 11/27/2022 XR, tibia + fibul a, 2 view No observ ation record ed. [email or web address] [address] [facility], [place], [address], 11/27/2022 17:12:16 Result Notes None recorded. 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 Procedure Notes None recorded. Medical Equipment None Reported. Allergies Allergen ID Allergen Name Allergen Category Reaction Reaction Severity Criticality Documentation Date Start Date Code Code System Note Provider Name and Address Organization Details Recorded Time 623110 Cipro medicatio n rash Not available Not available 11/27/202254316 3 RxNorm NICOLAS hill PA - [facility] 3 14:24:29 Medications [...] Updated DateTime 4 167.64 cm 38.7 kg/m2 378772. 17 g 96 % 96 % 93 /min 18 /min 96.3 [degF] 121 mm[Hg] 79 mm[Hg] Linda Alvarez PA - [facility] 4 19:16:11 Date Recorded Body height Body mass index (BMI) Body weight Body temperature Oxygen saturation Oxygen saturation in Arterial blood by Pulse oximetry Heart rate Respiratory rate Systolic blood pressure Diastolic blood pressure Provider Name and Address Organization Details Last Updated DateTime 3 167.64 cm 38.7 kg/m2 796044. 17 g 97 [degF] 97 % 97 % 76 /min 16 /min 125 mm[Hg] 85 mm[Hg] NICOLAS STALLINGS PA - [facility] 3 14:33:05 Social History Question Answer Notes LastModified by [employer] Details LastModified Time Tobacco Smoking Status Never Smoker NICOLAS hill PA - [facility] 11/27/2022 14:30:35 Have You Had A Flu Shot This Season? No [email or web address] Information not available 10/10/2023 What Was The Date Of Your Most Recent Tobacco Screening? 10/10/2023 [email or web address] Information not available 10/10/2023 Have You Recently Traveled Abroad? No [email or web address] Information not available 11/27/2022 Sex: Unknown Functional Status Question Answer Note LastModified by [email or web address] Details LastModified Time Do you use any illicit or recreational drugs? No [email or web address] Information not available 11/27/2022 Do you or have you ever used any other forms of tobacco or nicotine? No [email or web address] Information not available 11/27/2022 What is your level of alcohol consumption? None [email or web address] Information not available 11/27/2022 Mental Status None recorded. Family History Relationship Description Onset Age of this Age Resolved Age Notes LastModified by Organization Details LastModified Time Father No current problems or disability [email or web address] Not available 11/27 14:29:41 Mother No current problems or disability Not available 11/27 14:29:41 Medical History No medical history recorded. Gynecological HistoryNo gynecological history recorded. Obstetrics History GPAL:G 0 P 0 0 0 0 Past Encounters Encounter ID Performer Location Encounter Start Date Encounter Closed Date Diagnosis/Indication Diagnosis SNOMED-CT Code Diagnosis ICD10 Code Diagnosis Note [id number] [address] [place] [address] 12/08/2021 15:29:52 12/08/2021 17:54:35 [id number] [facility] [address] [address] 08/11/2018 08:11:51 08/11/2018 09:08:09 [id number] [address] [place] [address] 10/10/2021 08:40:17 10/10/2021 09:29:07 [id number] Mario Pond DO [facility] [address] [address] 11/27/2022 12:37:16 11/27/2022 15:56:48 Pain of left lower leg 8973436008 24851 M79.662 recommend NSAID w/ PPI x 7dtopical analgesiai cegentle stretching f/u with PCP and referral to Ortho or PT prn no improvemen t Discussed concerning red flags with patient and reasons to follow up in the Emergency Department urgently. Patient advised to follow up as needed for worsening symptoms or no improvemen t. [id number] [facility] [address] [place] [address] 10/10/2023 18:56:05 10/10/2023 19:56:26 Exacerbation of moderate persistent asthma 689132428 J45.41 Health Concerns Section Related Observation LastModified by Organization Detai ls LastModified Time None Recorded Concern Status LastModified by Organization Details LastModified Time None Recorded Advance Directives Directive None Recorded Payers Insurance Date Sequence Insurance Name Policy Number Policy Garcia Covered Member ID Garcia Member ID Guarantor Name 10/11/2023 1 [place]MO [facility] (HMO) Jaycee Velásquez [id number] Jaycee Didier 10/10/2023 FEE FOR SERVICE Jaycee Didier 10/10/2023 1 [employer]UE [employer] ([facility]) [id number] Jaycee Didier [id number] Jaycee Didier 10/10/2023 1 [employer] [id number] Jaycee Didier [id number] Jaycee Lewis Notes Date Note Type Note Provider Name and Address Organization Details Recorded Time 11/28/19 23 text/htm l Lower Leg UCReported bypatient.Notes:57 y o c/o pain in L hill x 1 d no traumarecently started walking more no otc meds, no iceno bruising or rash\no weaknessno numbness/tingling Mario Pond DO [address] [facility] [place], [address], [place] - [facility] 11/27/2022 15:53:15 10/10/19 24 text/htm l CoughReported bypatient.source of patient informationInformation obtained from patient; Patient arrived at Urgent Care ambulatory Quality:harsh;productive cough; intermittent Severity:moderate; not really improving Duration:6 days Timing:gradual Associated Symptoms:no fever; no chills; no chest pain;wheezing KATYA Gandhi [address] [place], [address], [place] - [facility] 10/10/2023 19:54:12 OBGyn Episode No OBEpisode recorded.
== END 2025-02-07 13:11 | disposition home or self-care (01) ==
LOC: HO.HOP 13:10
PROVIDERS: PCP Internal Medicine; Visit Provider Psychiatry & Neurology Psychiatry
DX: F33.1 Major depressive disorder, recurrent, moderate (principal); F43.12 Post-traumatic stress disorder, chronic; F41.1 Generalized anxiety disorder
CPT/HCPCS: 99214

== ENCOUNTER 2025-02-15 09:20 | Outpatient (REF) | payer OTHER, SELFPAY ==
--- NOTE | 2025-02-15 11:06 | MHC.AU.HA3 ---
Hearing Instrument Follow-Up- Binaural Date of Visit: 02/15/25 Right Ear: Make, Model, Color, Serial Number: Oticon Intent 2 R blue [id number] Manager [employer] Systems Repair Warranty: 01/13/2028 [employer] Systems Loss and Damage Warranty: 01/13/2028 [facility] Service Plan: 01/18/2026 Battery Size: Rechargeable Biology Laboratory Assistant/Slim Tube: 2 85 Earmold/Dome/CShell/SlimTip:8mm dbl [email or web address] Type of Wax Guard: Oticon Minifit Prowax Dispensed By: [facility] Date of Fittin01/18/2025 Left Ear: Make, Model, Color, Serial Number: Oticon Intent 2 R blue [id number] Manager 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 Reports that she does like them better than when she tried hearing aids before but is having difficulty establishing a routine. Reports she holds off on putting the hearing due to damp hair in the am and then forgets to put them in before leaving the house. Advised to go ahead and put the hearing aids in when getting ready even if hair is damp. Jaycee will return for additional follow up with a goal of at least 8 hours average daily wear. Connected to phone and tested streaming. Recommendations: Recommendations: An additional follow-up was scheduled to monitor progress. Diagnosis Code(s): Primary Diagnosis: H90.3 Bilateral Sensorineural Hearing Loss Signature: Provider: Phyllis Phelps, [facility]3]-A
== END 2025-02-15 09:21 | disposition home or self-care (01) ==
LOC: HO.HAP 09:20
PROVIDERS: Visit Provider Internal Medicine
DX: Z13.89 Encounter for screening for other disorder (principal)

== ENCOUNTER → 2025-02-26 09:45 | Outpatient (BNV) | payer OTHER, SELFPAY | PROVIDERS: PCP Internal Medicine; Visit Provider Internal Medicine | DX: Z12.31 Encounter for screening mammogram for malignant neoplasm of breast (principal) | CPT/HCPCS: 77063; 77067 ==

== ENCOUNTER 2025-02-26 09:52 | Outpatient (REF) | payer OTHER, SELFPAY ==
--- OUTSIDE RECORDS SUMMARY | 2025-02-26 10:56 | XMS_ITS | Data Portability ---
Author Organization [facility], [address] Address [address] [place] [address] Care Team Providers Care Slide Maker Name Role Phone NIKHIL HUFF Primary Care Provider Assessment No assessment recorded. Plan of Treatment Reminders Order Date Submit Date Provider Last Modified By Organization Details Last Modified Time Details Appointments None recorded. Lab SARS CoV 2 (COVID-19) Ag, QL, IA, upper respiratory specimen 2023 024 [email or web address] [facility] [address], [address] [place], [address], 19:53:58 Referral None recorded. Procedures None recorded. Surgeries None recorded. Imaging XR, tibia + fibula, 2 view 2022 023 [facility], [address] [facility], [place], [address], 3 17:03:07 Medication Orders prednisone 20 mg tablet 2023 024 [facility], [address] [place], [place], [phone], 4 19:54:03 azithromyci n 250 mg tablet 2023 024 [facility], [address] [place], [phone], 4 19:54:03 naproxen 500 mg tablet 2022 023 [place] - [id number], [address] [place], [address], 3 14:53:22 omeprazole 20 mg capsule,del ayed release 2022 023 [place] [id number], [address] [place], [address], 3 14:53:20 Patient TargetsNo targets recorded. Patient Instructions Encounter Date Encounter Id Patient Instructions Last Modified By Organization Details Last Modified Time 10/10/2023 [id number] COPD exacerbatio n plan: care instructions [email or web address] Not available 10/10/2023 19:53:56 Reason for Referral None Reported. Results Created Date Observation Date Name Description Value Unit Range Abnormal Flag Note LastModifiedBy Organization Detail LastModifiedTime 10/10/1910/10/2023 SARS CoV 2 (COVI D-19) Ag, QL, IA, upper respi rator y speci men Unknown Analyte negati ve Not Available [facility] [address] [place], [address], 10/10/2023 19:17:04 10/10/19 24 10/10/2023 SARS CoV 2 (COVI D-19) Ag, QL, IA, upper respi rator y speci men Unknown Analyte yes Not Available [address] [place] [address] [address] [place], [address], 10/10/2023 19:17:04 11/28/19 23 11/27/2022 XR, tibia + fibul a, 2 view No observ ation record ed. [email or web address] [facility] [address] [facility], [place], [address], 11/27/2022 17:12:16 Result Notes None recorded. Problems Name Problem SNOMED Code Status Onset Date Resolution Date Notes Provider Name and Address Organization Details Recorded Time Chronic colitis 59841196 Active 2022 NICOLAS hill, [place] - [facility] 3 14:28:38 Allergic asthma 354257518 Active 2022 NICOLAS hill PA - [facility] 3 14:29:08 Concussion injury of brain 032356791 Active 2022 fell x couple of weeks [...] Name and Address Organization Details Recorded Time 173978 Cipro medicatio n rash Not available Not available 11/27/202272647 3 Rx[facility]OLAS hill [facility] - [facility] [...] Updated DateTime 4 167.64 cm 38.7 kg/m2 292131. 17 g 96 % 96 % 93 [...] Updated DateTime 3 167.64 cm 38.7 kg/m2 508937. 17 g 97 [degF] 97 % 97 % 76 /min 16 /min 125 mm[Hg] 85 mm[Hg] NICOLAS STALLINGS PA - [facility] 3 14:33:05 Social History Question Answer Notes LastModified by We Cluster Details LastModified Time Tobacco Smoking Status Never Smoker NICOLAS hill [place] - [facility] 11/27/2022 14:30:35 Have You Had A Flu Shot This Season? No [email or web address] Information not available 10/10/2023 What Was The Date Of Your Most Recent Tobacco Screening? 10/10/2023 [email or web address] Information not available 10/10/2023 Have You Recently Traveled Abroad? No [email or web address] Information not available 11/27/2022 Sex: Unknown Functional Status Question Answer Note LastModified by Jobyduizat ion Details LastModified Time Do you use any illicit or recreational drugs? No Information not available 11/27/2022 Do you or have you ever used any other forms of tobacco or nicotine? No [email or web address] Information not available 11/27/2022 What is your level of alcohol consumption? None [email or web address] Information not available 11/27/2022 Mental Status None recorded. Family History Relationship Description Onset Age of this Age Resolved Age Notes LastModified by Organization Details LastModified Time Father No current problems or disability [email or web address] Not available 11/27 14:29:41 Mother No current problems or disability [email or web address] Not available 11/27 14:29:41 Medical History No medical history recorded. Gynecological HistoryNo gynecological history recorded. Obstetrics History GPAL:G 0 P 0 0 0 0 Past Encounters Encounter ID Performer Location Encounter Start Date Encounter Closed Date Diagnosis/Indication Diagnosis SNOMED-CT Code Diagnosis ICD10 Code Diagnosis Note [id number] [address] [place] [address] 12/08/2021 15:29:52 12/08/2021 17:54:35 [id number] [facility] [facility] [address] [address] 08/11/2018 08:11:51 08/11/2018 09:08:09 [id number] [address] [place] [address] 10/10/2021 08:40:17 10/10/2021 09:29:07 [id number] Mario Pond DO [facility] [address] [address] 11/27/2022 12:37:16 11/27/2022 15:56:48 Pain of left lower leg [id number] 69389 M79.662 recommend NSAID w/ PPI x 7dtopical analgesiai cegentle stretching f/u with PCP and referral to Ortho or PT prn no improvemen t Discussed concerning red flags with patient and reasons to follow up in the Emergency Department urgently. Patient advised to follow up as needed for worsening symptoms or no improvemen t. [id number] KATYA Cooper [address] [place] [address] 10/10/2023 18:56:05 10/10/2023 19:56:26 Exacerbation of moderate persistent asthma 847969987 J45.41 Health Concerns Section Related Observation LastModified by Organization Detai ls LastModified Time None Recorded Concern Status LastModified by Organization Details LastModified Time None Recorded Advance Directives Directive None Recorded Payers Insurance Date Sequence Insurance Name Policy Number Policy Garcia Covered Member ID Garcia Member ID Guarantor Name 10/11/2023 1 [place]MO [facility] (HMO) Jaycee Velásquez [id number] Jaycee Didier 10/10/2023 FEE FOR SERVICE Jaycee Didier 10/10/2023 1 BLUE [employer]EN[place]IT [place]) [id number] Jaycee Didier [id number] Jaycee Didier 10/10/2023 1 [employer]ETNA [id number] Jaycee Didier [id number] Jaycee Lewis Notes Date Note Type Note Provider Name and Address Organization Details Recorded Time 11/28/19 23 text/htm l Lower Leg UCReported bypatient.Notes:57 y o c/o pain in L hill x 1 d no traumarecently started walking more no otc meds, no iceno bruising or rash\no weaknessno numbness/tingling Mario Pond DO [address] [facility] [place], [address], [place] - [facility] 11/27/2022 15:53:15 10/10/19 24 text/htm l CoughReported bypatient.source of patient informationInformation obtained from patient; Patient arrived at Urgent Care ambulatory Quality:harsh;productive cough; intermittent Severity:moderate; not really improving Duration:6 days Timing:gradual Associated Symptoms:no fever; no chills; no chest pain;wheezing KATYA Gandhi [address] [place], [address], [place] - [facility] 10/10/2023 19:54:12 OBGyn Episode No OBEpisode recorded.
== END 2025-02-26 09:53 | disposition home or self-care (01) ==
LOC: HO.MAMMO 09:52
PROVIDERS: PCP Internal Medicine; Visit Provider Internal Medicine
DX: Z12.31 Encounter for screening mammogram for malignant neoplasm of breast (principal)
CPT/HCPCS: 77063; 77067

== ENCOUNTER → 2025-02-26 20:30 | Outpatient (BNV) | payer OTHER, SELFPAY | PROVIDERS: PCP Internal Medicine; Visit Provider Psychiatry & Neurology Neurology | DX: R06.83 Snoring (principal) | CPT/HCPCS: 95810 ==

== ENCOUNTER → 2025-02-26 20:30 | Outpatient (REF) | payer OTHER, SELFPAY | LOC: HO.SL 20:30 | PROVIDERS: PCP Internal Medicine; Visit Provider Nurse Practitioner Family | DX: R40.0 Somnolence (principal); R53.83 Other fatigue; G47.19 Other hypersomnia | CPT/HCPCS: 95810 ==

== ENCOUNTER 2025-03-07 09:00 | Outpatient (RCR) | payer OTHER, SELFPAY ==
--- NOTE | 2024-12-06 11:26 | MHC.OT.EP ---
[address] [phone] Occupational Therapy Plan of Care Patient Name: Jaycee Velásquez Date of Evaluation: 12/06/24 Diagnosis: Post concussion syndrome Pain Location: Headaches Pt reports 'low grade headache' daily Current 2/10 Worst 9/10 Pain Score: 2 Pain Scale Used: Numeric (0 - 10) Aggravating Factors: Stress, overstimulation Alleviating Factors: Medication, rest Assessment: Jaycee is a 59-year-old female referred to occupational therapy for post-concussion syndrome following a history of three concussions over the past decade. She presents with persistent cognitive difficulties, including word-finding challenges, difficulty following directions, poor memory, and cognitive fatigue. She experiences daily low-level headaches and reports feeling easily overwhelmed and overstimulated. Functionally, Jaycee struggles with multitasking and task completion, frequently forgetting what she is doing. She has difficulty managing dual tasks, such as holding a conversation while entering notes on her phone. She reports experiencing occasional dizziness with loss of balance (LOB). Assessment measures include a [place] Score of 41, indicating severe issues with fatigue, memory/concentration, and slowed processing. She scored 29/30 on the MOCA. Jaycee suggests her ongoing cognitive deficits are impacting her confidence and self-perception. Pt would benefit from skilled OT cognitive therapy to address noted barriers and optimize function. Frequency and Duration: The patient will be seen 2x/wk for 6 weeks Short Term Goals: Pt will utilize a structured task list (written or digital) to improve task completion and reduce forgetfulness Utilize sensory regulation strategies in 3 different environments to reduce overstimulation and improve focus ID and challenge 3 negative self-thoughts per week using cognitive reframing techniques Senior Care Goals: IND w/ use memory aids (phone reminders, written lists) in at least 80% of daily tasks to improve memory and task completion IND w/ pacing techniques to reduce cognitive fatigue, reporting a decrease in mid-day exhaustion on at least 4/5 days per week Demo increased confidence by identifying 5 personal strengths and applying them in daily life Treatment Plan: Therapeutic Activity Home Exercise Program Neuro Re-ed ADL Training Other (see comments) Electronically Signed By: Cherrie Fish MS OTR/L Please Sign and return to therapist. Thank you once again for your referral.
--- NOTE | 2025-03-07 10:07 | MHC.OT.DC ---
[address] [phone] F: [phone] Occupational Therapy Discharge Note Patient Name: Jaycee Velásquez Provider: Nidhi Hermosillo Diagnosis: Post concussion syndrome Date of Evaluation: 12/06/24 Date of Discharge: 03/07/25 Treatments to Date: 13 Discharge Status: Achieved Goals Improved Function Independent with HEP Discharge Summary: Jaycee has progressed well in OT and met all goals set on admission. Pt is always very receptive to insights and recommendations; taking notes as appropriate and seems to have good follow through. She was able to identify several areas where she has seen improvement in her being less reactive, more calm, and overall more attentive to tasks. Pt is utilizing memory aids independently and reports improved awareness with body cues and knowing when to take breaks. At this time, pt has met all goals and is in agreement with discharge to home cognitive program. Thank you for this referral! Electronically Signed By: Cherrie Fish MS OTR/L Reviewed/agree with student documentation: Therapist: Please Sign and return to therapist, thank you for your referral.
== END 2025-03-07 10:07 | disposition home or self-care (01) ==
LOC: HO.OTS 09:00
PROVIDERS: PCP Internal Medicine; Visit Provider Nurse Practitioner Family
DX: F07.81 Postconcussional syndrome (principal); G31.89 Other specified degenerative diseases of nervous system; F09 Unspecified mental disorder due to known physiological condition
CPT/HCPCS: 97166; 97530

== ENCOUNTER 2025-03-08 09:52 | Outpatient (REF) | payer OTHER, SELFPAY ==
--- NOTE | 2025-03-08 11:14 | MHC.AU.HA3 ---
Hearing Instrument Follow-Up- Binaural Date of Visit: 03/08/25 Right Ear: Make, Model, Color, Serial Number: Oticon Intent 2 R blue [id number] Cardiology Nurse Repair Warranty: 01/13/2028 Cardiology Nurse Loss and Damage Warranty: 01/13/[address] [facility] Service Plan: 01/18/2026 Battery Size: Rechargeable Supervisor Concrete Stone Finishing/Slim Tube: 2 85 Earmold/Dome/CShell/SlimTip:8mm dbl [email or web address] Type of Wax Guard: Oticon Minifit Prowax Dispensed By: [facility] Date of Fittin01/18/2025 Left Ear: Make, Model, Color, Serial Number: Oticon Intent 2 R blue [id number] Cardiology Nurse Repair Warranty: 01/13/2028 Cardiology Nurse Loss and Damage Warranty: 01/13/[address] [facility] Service Plan: 01/18/2026 Battery Size: Rechargeable Supervisor Concrete Stone Finishing/Slim Tube: 2/85 Earmold/Dome/CShell/SlimTip: 8mm dbl [email or web address] Type of Wax Guard: Oticon Minifit Prowax Dispensed By: [facility] Date of Fittin01/18/2025 Follow-Up Summary: Seen for follow up. Jaycee reports more consistent wear of hearing aids since last visit. Notes she wants to wear them because she does get benefit from them. Reports she did forget her environmental education specialist on vacation so she was without them for several days. Notes that she sometimes still has difficulty hearing and has to ask for repetition. Data logging shows 5 hours average wear over this period. Increased gain to adaptation level 2 with continued gradual increase. Practiced maintenance together today. Recommendations: Recommendations: Hearing instrument follow-up or maintenance as needed. Diagnosis Code(s): Primary Diagnosis: H90.3 Bilateral Sensorineural Hearing Loss Signature: Provider: Phyllis Phelps, CCC-A
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
== END 2025-03-08 09:53 | disposition home or self-care (01) ==
LOC: HO.HAP 09:52
PROVIDERS: Visit Provider Internal Medicine
DX: Z13.89 Encounter for screening for other disorder (principal)

== ENCOUNTER 2025-03-13 09:48 | Outpatient (REF) | payer OTHER, SELFPAY | END 2025-03-13 09:49 | disposition home or self-care (01) | LOC: HO.HAP 09:48 | DX: Z13.89 Encounter for screening for other disorder (principal) ==

== ENCOUNTER 2025-04-04 10:05 | Outpatient (REF) | payer OTHER, SELFPAY | END 2025-04-04 10:06 | disposition home or self-care (01) | LOC: HO.HAP 10:05 | PROVIDERS: Visit Provider Internal Medicine | DX: Z13.89 Encounter for screening for other disorder (principal) ==

== ENCOUNTER 2025-04-10 10:58 | Outpatient (AMB) | payer MEDICAID, SELFPAY ==
[2025-04-10 11:00] VITALS: BP 110/68; PULSE 82; O2SAT 96; BMI 36.1
--- NOTE | 2025-04-10 11:00 | MHC.OFFVIS ---
Vital Signs 04/10/25 11:00 Height 5 ft 6 in Weight 223 lb 8 oz BMI 36.1 BP 110/68 Blood Pressure Location Lt brachial Position Sitting Pulse 82 Pulse Source Pulse Oximeter Pulse Oximetry (%) 96 Oxygen Delivery Method Room Air Intake Visit Reasons: 6 mnts f/u Intake Note: Patient presents follow up post concussive medication. OT/PSG in chart. Allergies ciprofloxacin (From CIPRO) Allergy (Intermediate, Verified 04/10/25 11:04) RASH Sulfa (Sulfonamide Antibiotics) (SULFA (SULFONAMIDE ANTIBIOTICS)) Allergy (Intermediate, Verified 04/10/25 11:04) RASH HPI Comments Details: 59-yr-old female presents for f/u of post-concussive syndrome. Patient has started on Zepbound therapy through [employer] online weight management program. Patient reports she has settled her work comp case, however they will continue to cover her medical related to her postconcussive syndrome. 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 She reports that the postconcussive OT therapy, as well as being started on memantine ER by Psychiatry, has been helpful for her cognition.? Though she does continue to have some cognitive difficulties. Having 2-3 migraine days per week. Still have some dizziness and off balance issues. Using Tylenol or ibuprofen at the 1st sign of migraine/headache, however waits to use Sumatriptan, as this makes her sleepy. She continues to have fatigue.? She has been compliant with thiamine supplement. Interval in-lab sleep study, did not show evidence for obstructive sleep apnea, however her oxygen level fell below 88 % x 9 minutes with average SpO2 92%, and there were frequent periodic limb movements of sleep of 83 per hour, with a PLMS arousal index of 8 per hour.? Patient states that she does not notice bothersome lip movements of sleep.? She will be wakes up to void about once a night. [facility] Medical History (Updated 04/10/25 @ 21:00 by ATUL Gudino) Vitamin B1 deficiency Anemia Major depression, recurrent, chronic Prediabetes Migraine aura without headache Dyslipidemia Diverticulitis Coronary artery calcification seen on CAT scan Colon polyps Colitis [place] (hard of hearing) History of headache Chronic post-traumatic stress disorder (PTSD) Attention-deficit hyperactivity disorder, other type Cognitive and neurobehavioral dysfunction following brain injury Generalized anxiety disorder Major depressive disorder, recurrent episode, in partial remission with mixed features Collagenous colitis Depression PTSD (post-traumatic stress disorder) Anxiety Asthma, allergic Borderline hypertension Elevated cholesterol History of colon polyps Surgical History H/O adenoidectomy H/O thumb surgery History of esophagogastroduodenoscopy (EGD) Hx laparoscopic cholecystectomy (~2005) H/O: History of colonoscopy Family History Father Alcoholism Lung cancer Mother Diabetes Dementia Hypercholesteremia Brother Diabetes insipidus Brother Asthma Social History Household Members: Spouse and Other Household Members Other:: 19 year old son Alcohol intake: never Patient Tobacco Use Status: Never used Tobacco Second Hand Smoke Exposure: No Current occupational status: employed and unemployed Current occupation: [employer] Physical Exam Vital Signs: Last Vital Signs Pulse 82 04/10/25 11:00 BP 110/68 04/10/25 11:00 Pulse Ox 96 04/10/25 11:00 Oxygen Delivery Method Room Air 04/10/25 11:00 BMI result Body Mass Index 36.1 Const General: cooperative and no acute distress Orientation/consciousness: patient oriented x3 Resp Effort & Inspection: normal respiratory effort and able to speak in complete sentences Neuro Other: Alert and oriented x3- with mild STM lapses General: patient oriented x3 Psych Appearance: grossly normal Affect: normal affect Attitude: cooperative Assessment & Plan Assessment & Plan (1) Postconcussive syndrome: Comment: s/p fall at work November 2022- vision, balance, gait, cognitive difficulties, and migraine phenotype headaches. Code(s): F07.81 - Postconcussional syndrome Category: Medical (2) Cognitive and neurobehavioral dysfunction following brain injury: Code(s): G31.89 - Other specified degenerative diseases of nervous system; F09 - Unspecified mental disorder due to known physiological condition; S06.9XAS - Unspecified intracranial injury with loss of consciousness status unknown, sequela Category: Medical (3) Snoring: Comment: 02/26/2025 In-lab PSG-no evidence for sleep apnea. Code(s): R06.83 - Snoring Category: Medical (4) Daytime sleepiness: Code(s): R40.0 - Somnolence Category: Medical (5) Fatigue: Code(s): R53.83 - Other fatigue Category: Medical Qualifiers: Fatigue type: other Qualified Code(s): R53.83 - Other fatigue (6) Migraine without aura: Comment: post-traumatic Code(s): G43.009 - Migraine without aura, not intractable, without status migrainosus Category: Medical Qualifiers: Status migrainosus presence: without status migrainosus Intractability: not intractable Qualified Code(s): G43.009 - Migraine without aura, not intractable, without status migrainosus Plan For overall postconcussive syndrome management: Continue to optimize good self-care, including but not limited to maintaining a healthy diet, adequate fluid intake, adequate sleep, and engaging in regular physical activity. Track headaches. Pt has completed PT for vestibular and gait tx- which was helpful though patient is still prone to dizziness imbalance difficulties Continue postconcussive OT cognitive exercises For fatigue: Reviewed in-lab sleep study, no evidence for sleep apnea, mild nocturnal hypoxemia, infrequent periodic limb movements of sleep which patient is not bothered by. Continue thiamine supplement for now. We will check labs for common etiologies of periodic limb movement of sleep. Patient encouraged to sleep with her head of bed elevated-maybe 10-20%. ? For acute headache treatment: Hold Sumatriptan 100mg tab order, as this causes sleepiness. May continue Ibuprofen or Tylenol prn mild-moderate headache. Trial Rizaatriptan 10mg tab, 1/2 - 1 tab (5-10mg) at onset of headache, may repeat in 2 hours. Max of 3 tabs (30mg) per 24 hours. You may take Rizaatriptan with OTC Tylenol 650-1,000mg every 4-6 hours, Ibuprofen (liquid gels) 600mg every 6 hours, or Naproxen (liquid gels) 440mg q 12 hrs prn. Potential adverse effects of triptans, include but are not limited to nausea, fatigue, chest tightness/tingling (usually passes within a few minutes), medication overuse headaches. Previous acute tx trial- sumatriptan, causes sleepiness Acute migraine medication contraindications: None at this time ? For headache prevention medication: Continue Riboflavin 400mg qam Continue Magnesium 400-500mg qhs. Continue memantine ER 21 mg daily per Psychiatry, patient will discuss increasing dose to 28 mg daily with her psychiatrist tomorrow. Continue Venlafaxine ER per psychiatry Previous other preventative medication use: Previously may have tried nortriptyline- unsure effect. Migraine prevention medication contraindications: Aimovig d/t GI s/s. ? 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 ? Will follow-up upon review of above and patient to follow-up in clinic in 6 months or sooner prn. Orders: Orders Complete Blood Count Auto Diff Today D64.9 - Anemia, unspecified Comprehensive [place]. Panel Fast Today D64.9 - Anemia, unspecified IRON PROFILE Today D64.9 - Anemia, unspecified Ferritin Today D64.9 - Anemia, unspecified TSH reflex Free T4 Today D64.9 - Anemia, unspecified Vitamin B12 and Folate Today D64.9 - Anemia, unspecified Vitamin B1 Today E51.9 - Thiamine deficiency, unspecified Medications: New rizatriptan max 3 tabs per day or 6 tabs per week 5 - 10 mg (0.5 - 1 x 10 mg) PO Q2H PRN 12 tabs 6RF migraine headache 21 days Refilled thiamine HCl (vitamin B1) 100 mg PO DAILY 30 tabs 6RF 30 days Discontinued sumatriptan succinate Discontinued Reason: Doctor's Order (0.5 - 1 x 100 mg) 50 - 100 mg orally at onset of headache, may repeat in 2 hrs PRN; max 2 tabs per day or 4 tabs/week (may take with Ibuprofen) 30 days 12 tabs 6RF migraine headache prednisone take 3 tabs x 2 days, 2 tabs x 2days, 1 tab x2 days Discontinued Reason: Patient Completed Course 10 mg PO DIRECTED 6 days 12 tabs 0RF J45.901 - Unspecified asthma with (acute) exacerbation Coding Level of Care Code Est Pt Level 4 (07646) Diagnoses Postconcussive syndrome F07.81 Cognitive and neurobehavioral dysfunction following brain injury G31.89; F09; S06.9XAS Snoring R06.83 Daytime sleepiness R40.0 Other fatigue R53.83 Fatigue type: other Migraine without aura and without status migrainosus, not intractable G43.009 Status migrainosus presence: without status migrainosus Intractability: not intractable
== END 2025-04-10 12:13 | disposition home or self-care (01) ==
LOC: HO.HSMS 10:59
PROVIDERS: PCP Internal Medicine; Visit Provider Nurse Practitioner Family
DX: G31.89 Other specified degenerative diseases of nervous system (principal); F07.81 Postconcussional syndrome; F09 Unspecified mental disorder due to known physiological condition; G43.009 Migraine without aura, not intractable, without status migrainosus; R06.83 Snoring; R40.0 Somnolence; R53.83 Other fatigue
CPT/HCPCS: 99214

== ENCOUNTER → 2025-04-10 10:58 | Outpatient (BNVA) | payer OTHER, SELFPAY | PROVIDERS: PCP Internal Medicine; Visit Provider Nurse Practitioner Family | DX: G43.009 Migraine without aura, not intractable, without status migrainosus (principal); R06.83 Snoring; R53.83 Other fatigue; F07.81 Postconcussional syndrome; G31.89 Other specified degenerative diseases of nervous system; S06.9XAS Unspecified intracranial injury with loss of consciousness status unknown, sequela; F09 Unspecified mental disorder due to known physiological condition | CPT/HCPCS: 99212 ==

== ENCOUNTER 2025-04-11 11:18 | Outpatient (AMB) | payer OTHER, SELFPAY ==
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
== END 2025-04-11 13:37 | disposition home or self-care (01) ==
LOC: HO.HOP 11:18
PROVIDERS: PCP Internal Medicine; Visit Provider Psychiatry & Neurology Psychiatry
DX: F41.1 Generalized anxiety disorder (principal); F90.8 Attention-deficit hyperactivity disorder, other type; F43.12 Post-traumatic stress disorder, chronic; F33.9 Major depressive disorder, recurrent, unspecified
CPT/HCPCS: 90833; 99213

== ENCOUNTER → 2025-04-11 11:18 | Outpatient (BNVA) | payer OTHER, SELFPAY | PROVIDERS: PCP Internal Medicine; Visit Provider Psychiatry & Neurology Psychiatry | DX: F41.1 Generalized anxiety disorder (principal); F90.8 Attention-deficit hyperactivity disorder, other type; F43.12 Post-traumatic stress disorder, chronic; F33.9 Major depressive disorder, recurrent, unspecified | CPT/HCPCS: 99212 ==

== ENCOUNTER 2025-06-14 10:05 | Outpatient (REF) | payer OTHER, SELFPAY ==
--- OUTSIDE RECORDS SUMMARY | 2025-06-14 11:35 | XMS_ITS ---
Author Name [facility] Organization Unknown Care Team Organization Name Specialty Phone Email Start Date End Da te [facility] NULL Primary Care 07/13/2023 05/01/2024 [facility] NULL Primary Care 03/18/2023 05/01/2024
--- OUTSIDE RECORDS SUMMARY | 2025-06-14 11:35 | XMS_ITS | Clinical Summary ---
Author Organization [facility] Address [id number] [place] [id number] Care Team Providers Care Concrete Gun Operator Name Role Phone Christina Marin MD [...] Last Done Comments Breast Cancer Screening 1965 Colorectal Cancer Screening: Colonoscopy 1965 DTaP,Tdap,and Td Vaccines (1 - Tdap) 1984 Cervical Cancer Screening: P ap Smear 1986 Pneumococcal Vaccine: 50+ Ye ars (1 of 1 - PCV) 2015 Zoster Vaccines (1 of 2) 2015 HIV Screening 10/12/2023 Hepatitis C Screening 10/12/2023 Social Influencers of Health Screening 10/12/2023 Depression Screening 09/13/2024 COVID-19 Vaccine (1 - 2023-2 5 season) 2025 Influenza Vaccine (#1) 2025 RSV Immunization Adult Patie nts (1 - Risk 60-74 years 1-dose series) 2025 HIB Vaccines Aged Out No longer eligi ble based on patient's age to complete this topic HPV Vaccines Aged Out No longer eligi ble based on patient's age to complete this topic Hepatitis A Vaccines Aged Out No long er eligible based on patient's age to complete this topic Hepatitis B Vaccines Aged Out No long er eligible [...] age to complete this topic Care Teams Concrete Gun Operator Relationship Specialty Start Date End Date Christina Marin MD [address] [place] [id number] PCP - General 02/01/23
[2025-06-14 13:34] LABS: MANUAL DIFF FLAG NO
[2025-06-14 13:38] LABS: Hematocrit 38.4 % (37.0-47.0); Hemoglobin 13.2 g/dl (12.0-16.0); Imm Gran Abs Auto 0.01 X10*3/uL (0.00-0.03); Imm Gran Pct Auto 0.2 % (0.0-0.4); Lymphocytes Absolute Auto 2.7 X10*3/uL (1.2-4.9); Mean Corpuscular HGB Conc 34.4 g/dl (31.0-35.0); Mean Corpuscular Hemoglobin 29.6 pg (27.0-33.0); Mean Corpuscular Volume 86.1 fL (80.0-98.0); NRBC Abs Auto 0.000 X10*3/uL (0.0-0.012); NRBC Pct Auto 0.0 /100WBC (0.0-0.2); Platelet Count 274 X10*3/uL (160-400); Red Blood Count 4.46 X10*6/uL (4.20-5.50); White Blood Count 6.3 X10*3/uL (4.8-10.8)
[2025-06-14 14:02] LABS: Alanine Aminotransferase 28 U/L (0-31); Albumin Level 4.4 g/dL (3.5-5.0); Alkaline Phosphatase 112 U/L (39-117); Anion Gap 13 (12-20); Aspartate Amino Transferase 38 U/L (5-31); Blood Urea Nitrogen 28 mg/dL (9-16); Calcium 9.3 mg/dL (8.4-10.2); Carbon Dioxide 24 mmol/L (22-29); Chloride 108 mmol/L (96-108); Estimated Glomerular Filt Rate 28; Iron 74 mcg/dL (30-160); Percent Iron Saturation 33 % (15-50); Potassium 4.3 mmol/L (3.3-5.1); Sodium 141 mmol/L (135-145); Total Iron Binding Capacity 226 mcg/dL (228-428); Total Protein 7.5 g/dL (6.5-8.0); Unsaturated Iron Binding 152 ug/dL
[2025-06-14 14:09] LABS: Ferritin 147 ng/mL (10-250)
[2025-06-14 14:23] LABS: Folate 8.9 ng/mL (> or = 4.0); Vitamin B12 586 pg/mL (200-900)
== END 2025-06-14 10:06 | disposition home or self-care (01) ==
LOC: HO.HKASLDS 10:05
PROVIDERS: PCP Internal Medicine; Visit Provider Nurse Practitioner Family
DX: E51.9 Thiamine deficiency, unspecified (principal); D64.9 Anemia, unspecified
CPT/HCPCS: 36415; 80053; 82607; 82728; 82746; 83540; 84425; 84443; 85025

== ENCOUNTER 2025-07-09 10:27 | Emergency (ER) | payer OTHER, SELFPAY ==
--- NOTE | ~2025-07-09 | CT_ITS ---
EXAMINATION: CT ABDOMEN AND PELVIS WITHOUT CONTRAST CLINICAL INFORMATION: Upper abdominal pain, nausea, diarrhea COMPARISON: None available. TECHNIQUE: Multidetector volumetric imaging was performed from the superior aspect of the liver through the pubic symphysis. Sagittal and coronal reformatted images were obtained on the technologist's workstation. This CT examination was performed using dose optimization techniques as appropriate, variously including the following: *Automated exposure control *Adjustment of mA and/or kV according to patient size (this includes techniques or standardized protocols for targeted exams where dose is matched to indication/reason for exam; i.e. extremities or head) *Use of iterative reconstruction technique FINDINGS: LUNG BASES: Curvilinear density in the medial right lower lobe adjacent to large thoracic vertebral body osteophyte is probably related to atelectasis. LIVER, GALLBLADDER, AND BILIARY TREE: The liver is normal in size, shape, and attenuation. No focal hepatic lesion or biliary ductal dilatation is present. The gallbladder surgically absent and there are clips in the gallbladder fossa. Duct is mildly prominent. PANCREAS: Unremarkable. SPLEEN: Unremarkable. ADRENAL GLANDS: Unremarkable. KIDNEYS AND URETERS: The kidneys are normal in size, shape, and attenuation. No hydronephrosis, hydroureter, or calculi seen. No perinephric stranding. BLADDER: Unremarkable. GASTROINTESTINAL TRACT: The small and large bowel are unremarkable. The appendix is unremarkable. ABDOMINAL WALL: No significant hernia is appreciated. LYMPH NODES: Normal. VASCULAR: Multifocal atherosclerotic calcifications are evident. PELVIC VISCERA: Unremarkable. OSSEOUS STRUCTURES: Moderate degenerative changes are present at L4-5 and L5-S1. Mild osteoarthritis is present in both hip joints. CT/CT abdomen pelvis wo IV con IMPRESSION: Essentially unremarkable CT abdomen pelvis aside from mild degenerative changes. Fleischner guidelines were followed. Electronically signed by: Brad Vogel MD 07/09/2025 12:30 PM EDT
[2025-07-09 10:31] VITALS: BP 111/63; PULSE 100; RESP 18; TEMP 35.9; O2SAT 98; BMI 30.3
--- NOTE | 2025-07-09 10:32 | ED.GENADULT ---
HPI - General Adult General Chief complaint: Nausea/Vomiting/Diarrhea Stated complaint: Dizziness Headache Time Seen by Provider: 07/09/25 10:49 Source: patient, RN notes reviewed and old records reviewed History of Present Illness ED Provider: Paige Shelley PA-C HPI narrative: 60-year-old female with a past medical history of anemia, HLD, diverticulitis, PTSD, depression, anxiety, asthma, HTN, presenting to the ED complaining upper abdominal pain radiating to lower abdomen, nausea, nonbloody diarrhea, chills, body aches, decreased p.o. intake x 1 week. Also reports lightheadedness/fatigue. Denies fever, vomiting, constipation, dysuria/hematuria, CP/SOB Related Data Home Medications ?Medication ?Instructions ?Recorded ?Confirmed atorvastatin 20 mg tablet 20 mg PO DAILY 10/29/22 04/11/25 albuterol sulfate 90 mcg/actuation 2 puff inhalation QID PRN Wheezing 03/23/23 04/11/25 aerosol inhaler fluticasone 100 mcg-salmeterol 50 1 ea inhalation BID 05/25/24 04/11/25 mcg/dose blistr powdr for inhalation losartan 25 mg tablet 25 mg PO DAILY 05/25/24 04/11/25 tirzepatide (weight loss) 5 mg/0.5 5 mg subcut QWEEK 04/10/25 04/11/25 mL subcutaneous pen injector (Zepbound) Previous Rx's ?Medication ?Instructions ?Recorded magnesium oxide 400 mg (241.3 mg 400 mg PO BEDTIME 30 days #30 tabs 09/17/23 magnesium) tablet riboflavin (vitamin B2) 400 mg 400 mg PO DAILY 30 days #30 tabs 09/17/23 tablet budesonide 3 mg 3 mg PO DAILY #60 caps 08/28/24 capsule,delayed,extended release fluconazole 100 mg tablet 100 mg PO DAILY 7 days #7 tabs 09/22/24 clonazepam 0.5 mg disintegrating 0.5 mg PO DAILY PRN anxiety 30 02/23/25 tablet days #30 tabs propranolol 10 mg tablet 10 mg PO TID PRN anxiety #90 tabs 02/23/25 bupropion HCl 300 mg 24 hr tablet, 300 mg PO QAM #90 tabs 03/26/25 extended release buspirone 15 mg tablet 15 mg PO BID 90 days #180 tabs 03/26/25 memantine 21 mg capsule 21 mg PO DAILY 90 days #90 ea 03/26/25 sprinkle,extended release 24hr venlafaxine 150 mg 300 mg (2 x 150 mg) PO DAILY 90 03/26/25 capsule,extended release 24 hr days #180 caps rizatriptan 10 mg tablet 5 - 10 mg (0.5 - 1 x 10 mg) PO Q2H 04/10/25 PRN migraine headache 21 days #12 tabs thiamine HCl (vitamin B1) 100 mg 100 mg PO DAILY 30 days #30 tabs 04/10/25 tablet cefuroxime axetil 250 mg tablet 250 mg PO Q12H 5 days #10 tabs 04/30/25 methylphenidate HCl 54 mg 54 mg PO DAILY #60 tabs 06/13/25 tablet,extended release 24 hr (Concerta) dicyclomine 20 mg tablet 20 mg PO QID 5 days #20 tabs 07/09/25 ondansetron 4 mg disintegrating 4 mg PO Q8H PRN nausea and 07/09/25 tablet vomiting #10 tabs Allergies Allergy/AdvReac Type Severity Reaction Status Date / Time ciprofloxacin (From CIPRO) Allergy Intermediate RASH Verified 07/09/25 10:31 Sulfa (Sulfonamide Allergy Intermediate RASH Verified 07/09/25 10:31 Antibiotics) (SULFA (SULFONAMIDE ANTIBIOTICS)) Review of Systems Review of Systems: Yes all other systems are reviewed and are negative Constitutional: Constitutional: Reports as per [facility] Past Medical History Attestation statement: The following information was validated with the patient. Source: old records reviewed Medical History Vitamin B1 deficiency Anemia Major depression, recurrent, chronic Prediabetes Migraine aura without headache Dyslipidemia Diverticulitis Coronary artery calcification seen on CAT scan Colon polyps Colitis [place] (hard of hearing) History of headache Chronic post-traumatic stress disorder (PTSD) Attention-deficit hyperactivity disorder, other type Cognitive and neurobehavioral dysfunction following brain injury Generalized anxiety disorder Major depressive disorder, recurrent episode, in partial remission with mixed features Collagenous colitis Depression PTSD (post-traumatic stress disorder) Anxiety Asthma, allergic Borderline hypertension Elevated cholesterol History of colon polyps Surgical History H/O adenoidectomy H/O thumb surgery History of esophagogastroduodenoscopy (EGD) Hx laparoscopic cholecystectomy (~2005) H/O: History of colonoscopy Family History Family History Father Alcoholism Lung cancer Mother Diabetes Dementia Hypercholesteremia Brother Diabetes insipidus Brother Asthma Social History Social History Household Members: Spouse and Other Household Members Other:: 19 year old son Alcohol intake: never Patient Tobacco Use Status: Never used Tobacco Second Hand Smoke Exposure: No Advance Directives: No Advance Directives Information Provided: Yes Current occupational status: employed and unemployed Current [place]: [employer] [place] Physical Exam ED Vital Signs: Vital Signs - 24 hr 07/09/25 10:31 07/09/25 12:00 07/09/25 14:00 Temperature 96.7 F L Pulse Rate 100 70 70 Respiratory Rate 18 14 18 Blood Pressure 111/63 132/75 118/78 Pulse Oximetry 98 99 95 Oxygen Delivery Method Room Air Room Air Room Air BMI result Body Mass Index 30.3 Const General: cooperative, healthy appearing and no acute distress Orientation/consciousness: patient oriented x3 Limitations: no limitations HENMT Head: Yes normal to inspection and Yes atraumatic Ears: hearing grossly normal bilaterally General nose exam: Normal external nose present Face and sinus: Yes normal facial exam Eyes General: appearance normal, both eyes and all related structures EOM: EOMs intact bilaterally Neck Neck: Yes normal visual inspection and Yes no meningeal signs Resp Effort & Inspection: normal respiratory effort and no respiratory distress Auscultation: clear to auscultation bilaterally Cardio Rate: regular rate Heart sounds: S1 normal heart sound present and S2 normal heart sound present GI Inspection: Yes normal to inspection Palpation (GI): Soft to palpation, Tenderness to palpation present (GI) in the epigastrum, no guarding and not rigid General: Yes no CVA tenderness Back/Spine/Pelvis Back: no CVA tenderness Skin Rashes: no rashes Wounds: no wounds Neuro General: patient oriented x3, tone normal, moves all extremities, no meningeal signs and CN's II-XI intact bilaterally Cranial nerves: Yes CN's II-XII intact bilaterally Gait exam (Neuro): Normal gait present Extrem General: Yes normal to inspection Course Course Course Narrative: Rapid medical examination performed in triage by Alexia George PA-C. Patient is a 60 year old assigned female at presenting to the emergency department with multiple complaints including dizziness, lightheadedness, concerns of acute on chronic colitis, and body aches. Detailed physical exam and review of systems are deferred to the home therapy clinician. Labs, swabs, EKG ordered. Patient placed back in the waiting room pending room availability and results. -no leukocytosis. Renal function at patient's baseline. CPK slightly elevated to 160. Initial troponin 11.9 > will obtain repeat -viral testing negative CT abdomen pelvis wo IV con IMPRESSION: Essentially unremarkable CT abdomen pelvis aside from mild degenerative changes. Fleischner guidelines were followed. -repeat troponin without rise, mi unlikely > on re-evaluation patient denies pain. States nausea has improved. Has tolerated p.o. water and crackers. On repeat palpation of abdomen is soft and nontender. Plan for patient to follow up with GI/PCP. Results discussed with patient including worrisome signs and symptoms and strict return precautions, and when to return to the emergency department. They verbalized understanding and feel safe for discharge at this time. Medications Administered Discontinued Medications Generic Name Dose Route Start Last Admin Trade Name Freq PRN Reason Stop Dose Admin Dicyclomine HCl 20 mg 07/09/25 12:58 07/09/25 13:08 Dicyclomine Hcl 10 Mg Capsule PO 07/09/25 12:59 20 mg ONCE ONE Administration Famotidine 20 mg 07/09/25 11:16 07/09/25 11:23 Famotidine/Pf 20 Mg/2 Ml Vial IVPUSH 07/09/25 11:17 20 mg ONCE ONE Administration Sodium Chloride 1,000 mls @ 999 mls/hr 07/09/25 11:30 07/09/25 12:51 Ns IV 07/09/25 12:30 Infused .Q1H1M FLORINDA Infusion Sodium Chloride 1,000 mls @ 999 mls/hr 07/09/25 12:00 07/09/25 12:51 Ns IV 07/09/25 13:00 999 mls/hr .Q1H1M FLORINDA Administration Morphine Sulfate 2 mg 07/09/25 11:16 07/09/25 11:29 Morphine Sulfate 4 Mg/Ml Cartridge IVPUSH 07/09/25 11:17 Not Given ONCE ONE Protocol Sumatriptan Succinate 25 mg 07/09/25 13:23 07/09/25 13:44 Sumatriptan Succinate 25 Mg Tablet PO 07/09/25 13:24 25 mg ONCE ONE Administration Medical Decision Making Medical Decision Making [facility] Narrative: 60-year-old female with a past medical history of anemia, HLD, diverticulitis, PTSD, depression, anxiety, asthma, HTN, presenting to the ED complaining upper abdominal pain radiating to lower abdomen, nausea, nonbloody diarrhea, chills, body aches, decreased p.o. intake x 1 week. On exam vital signs stable, NAD, nontoxic appearing, abdomen is soft with epigastric tenderness, no rebound or guarding. Nonfocal. Concern for pancreatitis vs gastroenteritis vs colitis vs cholecystitis vs viral syndrome. Lower suspicion for acute ACS, PE/DVT, appendicitis or dissection Plan: EKG, labs, UA, viral testing, CT, IVF, pain control, re-evaluate Please refer to course for remaining clinical decision making, interpretation of labs/imaging results, and discussions with consultants and/or family members. Differential Diagnosis Differential Diagnoses: The differential diagnosis associated with the presentation includes As above Admission/Observation Consideration of admission/observation: Escalation of care including admission/observation considered Lab Data [facility] Lab Attestation statement: I reviewed the patient's lab results. 07/09/25 11:09 07/09/25 11:09 Labs: Lab Results 07/09/25 07/09/25 07/09/25 Range/Units 11:07 11:09 14:15 WBC 6.5 (4.8-10.8) X10*3/uL RBC 4.62 (4.20-5.50) X10*6/uL Hgb 13.2 (12.0-16.0) g/dl Hct 39.9 (37.0-47.0) % MCV 86.4 (80.0-98.0) fL MCH 28.6 (27.0-33.0) pg MCHC 33.1 (31.0-35.0) g/dl RDW 13.5 (11.0-16.0) % Plt Count 259 (160-400) X10*3/uL MPV 10.1 (9.4-12.3) fL Immature Gran % (Auto) 0.3 (0.0-0.4) % Neut % (Auto) 47.7 (45-73) % Lymph % (Auto) 36.2 (20-40) % [place] % (Auto) 7.1 (2-11) % Eos % (Auto) 7.8 H (0-4) % Baso % (Auto) 0.9 (0-2) % Lymph # (Auto) 2.4 (1.2-4.9) X10*3/uL [place] # (Auto) 0.5 (0.1-1.2) X10*3/uL Eos # (Auto) 0.5 H (0.0-0.4) X10*3/uL Baso # (Auto) 0.1 (0.0-0.2) X10*3/uL Abs Immat Gran (auto) 0.02 (0.00-0.03) X10*3/uL Absolute Neuts (auto) 3.1 (2.0-8.3) x10*3/uL Absolute Nucleated RBC 0.000 (0.0-0.012) X10*3/uL Nucleated RBC % (auto) 0.0 (0.0-0.2) /100WBC Sodium 141 (135-145) mmol/L Potassium 4.0 (3.3-5.1) mmol/L Chloride 107 (96-108) mmol/L Carbon Dioxide 23 (22-29) mmol/L Anion Gap 15 (12-20) BUN 30 H (9-16) mg/dL Creatinine 1.74 H (0.5-1.4) mg/dL Estim Creat Clear Calc 37.8 Estimated GFR 30 Random Glucose 100 (60-115) mg/dL Calcium 9.1 (8.4-10.2) mg/dL Magnesium 1.9 (1.6-2.6) mg/dL Total Bilirubin 0.4 (0.0-1.0) mg/dL AST 33 H (5-31) U/L ALT 20 (0-31) U/L Alkaline Phosphatase 97 (39-117) U/L Total Creatine Kinase 160 H (26-140) U/L Troponin I High Sens 11.9 (<3.5-17.0) ng/L Total Protein 7.0 (6.5-8.0) g/dL Albumin 3.9 (3.5-5.0) g/dL Lipase 37 (8-78) U/L Urine Color Yellow Urine Appearance Clear Urine pH 6.5 (5.0-9.0) Ur Specific Jackson 1.010 (1.005-1.025) Urine Protein Negative (Neg-Trace) mg/dL Urine Glucose (UA) Negative (Negative) mg/dL Urine Ketones Trace (Negative) mg/dL Urine Blood Negative (Negative) Urine Nitrite Negative (Negative) Ur Leukocyte Esterase Negative (Negative) COVID-19 ([facility]) Negative (Negative) COVID-19 Clin Com See Note Influenza Type A ([facility]) Negative (Negative) Influenza Type B ([facility]) Negative (Negative) Influenza A & B Note See Note 07/09/25 Range/Units 14:21 WBC (4.8-10.8) X10*3/uL RBC (4.20-5.50) X10*6/uL Hgb (12.0-16.0) g/dl Hct (37.0-47.0) % MCV (80.0-98.0) fL MCH (27.0-33.0) pg MCHC (31.0-35.0) g/dl RDW (11.0-16.0) % Plt Count (160-400) X10*3/uL MPV (9.4-12.3) fL Immature Gran % (Auto) (0.0-0.4) % Neut % (Auto) (45-73) % Lymph % (Auto) (20-40) % [place] % (Auto) (2-11) % Eos % (Auto) (0-4) % Baso % (Auto) (0-2) % Lymph # (Auto) (1.2-4.9) X10*3/uL [place] # (Auto) (0.1-1.2) X10*3/uL Eos # (Auto) (0.0-0.4) X10*3/uL Baso # (Auto) (0.0-0.2) X10*3/uL Abs Immat Gran (auto) (0.00-0.03) X10*3/uL Absolute Neuts (auto) (2.0-8.3) x10*3/uL Absolute Nucleated RBC (0.0-0.012) X10*3/uL Nucleated RBC % (auto) (0.0-0.2) /100WBC Sodium (135-145) mmol/L Potassium (3.3-5.1) mmol/L Chloride (96-108) mmol/L Carbon Dioxide (22-29) mmol/L Anion Gap (12-20) BUN (9-16) mg/dL Creatinine (0.5-1.4) mg/dL Estim Creat Clear Calc Estimated GFR Random Glucose (60-115) mg/dL Calcium (8.4-10.2) mg/dL Magnesium (1.6-2.6) mg/dL Total Bilirubin (0.0-1.0) mg/dL AST (5-31) U/L ALT (0-31) U/L Alkaline Phosphatase (39-117) U/L Total Creatine Kinase (26-140) U/L Troponin I High Sens 9.1 (<3.5-17.0) ng/L Total Protein (6.5-8.0) g/dL Albumin (3.5-5.0) g/dL Lipase (8-78) U/L Urine Color Urine Appearance Urine pH (5.0-9.0) Ur Specific Jackson (1.005-1.025) Urine Protein (Neg-Trace) mg/dL Urine Glucose (UA) (Negative) mg/dL Urine Ketones (Negative) mg/dL Urine Blood (Negative) Urine Nitrite (Negative) Ur Leukocyte Esterase (Negative) COVID-19 ([facility]) (Negative) COVID-19 Clin Com Influenza Type A ([facility]) (Negative) Influenza Type B ([facility]) (Negative) Influenza A & B Note Independent Interpretation I performed an independent interpretation of an: EKG and CT Scan Radiology Impression Discussion of test interpretation with radiology: I have reviewed the radiologist's reading. External Record Review External record reviewed: Inpatient record, Office record, Outpatient record, Prior outpatient labs, Prior outpatient radiology, Primary care record and Outside ED record Tests considered The following testing was considered but not selected: As above Prescription Management I considered prescription management with: Pain Medication Chronic Conditions Patient?s care impacted by: Other (asthma) Social Determinants Patient?s care significantly limited by Social Determinants of Health including: Other Social Determinant of Health Discharge Plan Discharge Clinical Impression: Nausea, Abdominal pain Patient Disposition: Home, Self-Care Instructions: Abdominal Pain (ED) Additional Instructions: Your lab and imaging studies are reassuring Zofran as an antinausea medication, take as needed for nausea and vomiting Bentyl will help with abdominal discomfort Please follow up with your oil mixer as well as PCP Make sure you are staying hydrated Drink plenty of fluids If her symptoms persist or worsen, pain becomes unbearable, you are unable to eat or drink return to the ED Prescriptions: New ondansetron 4 mg tablet,disintegrating 4 mg PO Q8H PRN (Reason: nausea and vomiting) Qty: 10 0RF dicyclomine 20 mg tablet 20 mg PO QID 5 Days Qty: 20 0RF No Action riboflavin (vitamin B2) 400 mg tablet 400 mg PO DAILY 30 Days Qty: 30 6RF magnesium oxide 400 mg (241.3 mg magnesium) tablet 400 mg PO BEDTIME 30 Days Qty: 30 6RF Rx Instructions: may hold for loose stools budesonide 3 mg capsule,delayed,extend.release 3 mg PO DAILY Qty: 60 2RF fluconazole 100 mg tablet 100 mg PO DAILY 7 Days Qty: 7 0RF clonazepam 0.5 mg tablet,disintegrating 0.5 mg PO DAILY MDD 0.5 mg PRN (Reason: anxiety) 30 Days Qty: 30 1RF propranolol 10 mg tablet 10 mg PO TID PRN (Reason: anxiety) Qty: 90 1RF bupropion HCl 300 mg tablet extended release 24 hr 300 mg PO QAM Qty: 90 2RF Patient Comments: Patient stated Dr Harp is aware she is taking at HS. buspirone 15 mg tablet 15 mg PO BID 90 Days Qty: 180 0RF memantine 21 mg capsule,sprinkle,ER 24hr 21 mg PO DAILY 90 Days Qty: 90 0RF venlafaxine 150 mg capsule,extended release 24hr 300 mg PO DAILY 90 Days Qty: 180 0RF Rx Instructions: takes 300mg 1 X day cefuroxime axetil 250 mg tablet 250 mg PO Q12H 5 Days Qty: 10 0RF methylphenidate HCl [Concerta] 54 mg tablet extended release 24hr 54 mg PO DAILY Qty: 60 0RF Rx Instructions: Partial Fill upon patient request. losartan 25 mg tablet 25 mg PO DAILY fluticasone propion-salmeterol 100-50 mcg/dose blister with device 1 ea inhalation BID atorvastatin 20 mg tablet 20 mg PO DAILY albuterol sulfate 90 mcg/actuation HFA aerosol inhaler 2 puff inhalation QID PRN (Reason: Wheezing) rizatriptan 10 mg tablet 5 - 10 mg PO Q2H PRN (Reason: migraine headache) 21 Days Qty: 12 6RF Rx Instructions: max 3 tabs per day or 6 tabs per week thiamine HCl (vitamin B1) 100 mg tablet 100 mg PO DAILY 30 Days Qty: 30 6RF Zepbound 5 mg/0.5 mL pen injector 5 mg subcut QWEEK Rx Instructions: for weight loss Ref[place]: [facility] [place] [facility] [Provider Group, Gastroenterology] - 5 days Christina Contreras MD [Primary Care Provider, Internal Medicine] - 3 days Print Language: Telugu
--- NOTE | 2025-07-09 10:33 | ECG_ITS ---
Test Reason : dizziness Blood Pressure : */* mmHG Vent. Rate : 82 BPM Atrial Rate : 82 BPM P-R Int : 160 ms QRS Dur : 92 ms QT Int : 384 ms P-R-T Axes : 39 -26 72 degrees QTcB Int : 448 ms Normal sinus rhythm Minimal voltage criteria for LVH, may be normal variant ( Vance product ) Borderline ECG When compared with ECG of 07-Jun-2024 08:34, QRS axis Shifted left Referred By: Alexia George Electronically Signed By: SENAIT DUMONT
[2025-07-09 11:16] LABS: MANUAL DIFF FLAG NO
[2025-07-09 11:18] LABS: Hematocrit 39.9 % (37.0-47.0); Hemoglobin 13.2 g/dl (12.0-16.0); Imm Gran Abs Auto 0.02 X10*3/uL (0.00-0.03); Imm Gran Pct Auto 0.3 % (0.0-0.4); Lymphocytes Absolute Auto 2.4 X10*3/uL (1.2-4.9); Mean Corpuscular HGB Conc 33.1 g/dl (31.0-35.0); Mean Corpuscular Hemoglobin 28.6 pg (27.0-33.0); Mean Corpuscular Volume 86.4 fL (80.0-98.0); NRBC Abs Auto 0.000 X10*3/uL (0.0-0.012); NRBC Pct Auto 0.0 /100WBC (0.0-0.2); Platelet Count 259 X10*3/uL (160-400); Red Blood Count 4.62 X10*6/uL (4.20-5.50); White Blood Count 6.5 X10*3/uL (4.8-10.8)
[2025-07-09 11:31] LABS: Lipase 37 U/L (8-78)
[2025-07-09 11:32] LABS: COVID-19 Test Negative (Negative); IDNOW Serial# 152EDE1D; IDNOW Serial# 16C4AD1C; Influenza B2 Negative (Negative)
[2025-07-09 11:32] LABS: Alanine Aminotransferase 20 U/L (0-31); Albumin Level 3.9 g/dL (3.5-5.0); Alkaline Phosphatase 97 U/L (39-117); Anion Gap 15 (12-20); Aspartate Amino Transferase 33 U/L (5-31); Blood Urea Nitrogen 30 mg/dL (9-16); Calcium 9.1 mg/dL (8.4-10.2); Carbon Dioxide 23 mmol/L (22-29); Chloride 107 mmol/L (96-108); Creatinine Clr Calc Pharmacy 37.8; Estimated Glomerular Filt Rate 30; Magnesium 1.9 mg/dL (1.6-2.6); Potassium 4.0 mmol/L (3.3-5.1); Sodium 141 mmol/L (135-145); Total Protein 7.0 g/dL (6.5-8.0)
[2025-07-09 11:40] LABS: Troponin-I High Sensitivity 11.9 ng/L (<3.5-17.0)
[2025-07-09 12:00] VITALS: BP 132/75; PULSE 70; RESP 14; O2SAT 99
--- OUTSIDE RECORDS SUMMARY | 2025-07-09 13:51 | XMS_ITS | Clinical Summary ---
Author Organization [facility] Address [id number] [place] [id number] Care Team Providers Care Overhead Door Technician Name Role Phone Christina Marin MD Primary [...] ars (1 of 1 - PCV) 2015 RSV Immunization Adult Patie nts (1 - Risk 50-74 years 1-dose series) 2015 Zoster Vaccines (1 of 2) 2015 HIV Screening 10/12/2023 Hepatitis C Screening 10/12/2023 Social Influencers of Health Screening 10/12/2023 Depression Screening 09/13/2024 COVID-19 Vaccine ( - 2023-2 5 season) 2025 Influenza Vaccine (#1) 2025 HIB Vaccines Aged Out No longer [...] age to complete this topic Care Teams Overhead Door Technician Relationship Specialty Start Date End Date Christina Marin MD [address] [place] [id number] PCP - General 02/01/23
[2025-07-09 14:00] VITALS: BP 118/78; PULSE 70; RESP 18; O2SAT 95
[2025-07-09 14:23] LABS: Appearance Urine Clear; Glucose Urine UA Negative (Negative); PH 6.5 (5.0-9.0); Specific Gravity - Urine 1.010 (1.005-1.025)
[2025-07-09 14:59] LABS: Troponin-I High Sensitivity 9.1 ng/L (<3.5-17.0)
[2025-07-09 15:39] VITALS: BP 118/78; PULSE 70; RESP 18; TEMP 35.9; O2SAT 95
== END 2025-07-09 15:54 | disposition home or self-care (01) ==
PROVIDERS: Physician Assistant; Physician Assistant Medical; Emergency Provider Emergency Medicine; PCP Internal Medicine
DX: R10.10 Upper abdominal pain, unspecified (principal); R11.2 Nausea with vomiting, unspecified; R19.7 Diarrhea, unspecified; R42 Dizziness and giddiness; Z03.818 Encounter for observation for suspected exposure to other biological agents ruled out; R53.1 Weakness; I10 Essential (primary) hypertension; E78.5 Hyperlipidemia, unspecified; F41.9 Anxiety disorder, unspecified
CPT/HCPCS: 36415; 74176; 80053; 81003; 82550; 83690; 83735; 84484; 85025; 87502; 87635; 93005; 96361; 96374; 99284; J1308

== ENCOUNTER → 2025-07-09 10:33 | Outpatient (BNV) | payer OTHER, SELFPAY | PROVIDERS: Emergency Provider Emergency Medicine; PCP Internal Medicine; Visit Provider Internal Medicine | DX: R42 Dizziness and giddiness (principal); R53.1 Weakness | CPT/HCPCS: 93010 ==

== ENCOUNTER → 2025-07-09 11:16 | Outpatient (BNV) | payer OTHER, SELFPAY | PROVIDERS: Emergency Provider Emergency Medicine; PCP Internal Medicine; Visit Provider Radiology Diagnostic Radiology | DX: R10.10 Upper abdominal pain, unspecified (principal); R11.0 Nausea; R19.7 Diarrhea, unspecified | CPT/HCPCS: 74176 ==

== ENCOUNTER 2025-07-11 09:03 | Outpatient (REF) | payer OTHER, SELFPAY | END 2025-07-11 09:04 | disposition home or self-care (01) | LOC: HO.HKASLDS 09:03 | PROVIDERS: PCP Internal Medicine; Visit Provider Internal Medicine Gastroenterology | DX: Z13.89 Encounter for screening for other disorder (principal) ==

== ENCOUNTER 2025-07-11 09:03 | Outpatient (AMB) | payer OTHER, SELFPAY ==
--- NOTE | 2025-07-11 09:06 | A.OFFVIS_ITS ---
Intake Visit Reasons: diarrhea Intake Note: Jaycee presents as a video call follow up for diarrhea States that she is still having the issues with the constipation and she is not having any other issues at this time. International Guest Coordinator Required: No Allergies ciprofloxacin (From CIPRO) Allergy (Intermediate, Verified 07/09/25 10:31) RASH Sulfa (Sulfonamide Antibiotics) (SULFA (SULFONAMIDE ANTIBIOTICS)) Allergy (Intermediate, Verified 07/09/25 10:31) RASH Medication List - Last Reconciled 07/11/25 by Anthony Amador MD albuterol sulfate 90 mcg/actuation 2 puffs inhalation QID PRN atorvastatin 20 mg PO DAILY budesonide DR-ER 3 mg PO DAILY 3 weeks bupropion HCl XL 300 mg PO QAM buspirone 15 mg PO BID 90 days clonazepam 0.5 mg PO DAILY PRN 30 days MDD 0.5 mg dicyclomine 20 mg PO QID 5 days fluticasone propion-salmeterol 100-50 mcg/dose 1 ea inhalation BID magnesium oxide 400 mg PO BEDTIME 30 days memantine 21 mg PO DAILY 90 days methylphenidate HCl ER (Concerta) 54 mg PO DAILY ondansetron 4 mg PO Q8H PRN propranolol 10 mg PO TID PRN riboflavin (vitamin B2) 400 mg PO DAILY 30 days rizatriptan 5 - 10 mg (0.5 - 1 x 10 mg) PO Q2H PRN 21 days thiamine HCl (vitamin B1) 100 mg PO DAILY 30 days tirzepatide (weight loss) (Zepbound) 5 mg subcut QWEEK venlafaxine ER 300 mg (2 x 150 mg) PO DAILY 90 days HPI HPI diarrhea: Details: Telemedicine visit for this 60 YF for FU of dysphagia and collagenous colitis.? Pt was last seen in March, Pt scheduled for an urgent TV (does not have transportation) after ED visit on 07/09/25 for recurrent diarrhea 60-year-old female with a past medical history of anemia, HLD, diverticulitis, PTSD, depression, anxiety, asthma, HTN, presenting to the ED complaining upper abdominal pain radiating to lower abdomen, nausea, nonbloody diarrhea, chills, body aches, decreased p.o. intake x 1 week. Also reports lighth eadedness/fatigue. Denies fever, vomiting, constipation, dysuria/hematuria, CP/SOB Course Patient is a 60 year old assigned female at presenting to the emergency department with multiple complaints including dizziness, lightheadedness, concerns of acute on chronic colitis, and body aches. Labs, swabs, EKG ordered. Patient placed back in the waiting room pending room availability and results. -no leukocytosis. Renal function at patient's baseline. CPK slightly elevated to 160. Initial troponin 11.9 > will obtain repeat -viral testing negative CT abdomen pelvis wo IV con IMPRESSION: Essentially unremarkable CT abdomen pelvis aside from mild degenerative changes. -repeat troponin without rise, mi unlikely on re-evaluation patient denies pain. States nausea has improved. Has tolerated p.o. water and crackers. On repeat palpation of abdomen is soft and nontender. Plan for patient to follow up with GI/PCP. Results discussed with patient including worrisome signs and symptoms and strict return precautions, and when to return to the emergency department. They verbalized understanding and feel safe for discharge at this time. TODAY'S VISIT: Doing a little better. Had another episode of diarrhea after returning home from the ER No BM yesterday or today. Notes some abdominal cramps - not as bad as before - feels sore Taking Budesonide 9 mg daily since diarrhea started. Continues to have dysphagia - plans to see GI in [place] PAST VISIT: Taking Budesonide 3 mg every other day and if feeling stable every 3rd. Unable to decrease to every 3rd day. Takes a 9 mg tab in case of breakthrough symptoms (twice in the last 6 months) Has a BM 2 times a week. Waking up with a lot more mucous in the throat - hasnt seen ENT yet Notes dysphagia if she eats at the wrong angle. She was taking 9 mg of Budesonide and decreased to 6 mg on 08/10/22. gets messed up when she goes down to 3 mg a day Does not have a BM daily - has a BM every 3 days. Has 3 to 5 BMs a day and also overnight (since she does not have a sphincter) Seen by an ano-rectal surgeon years ago - she was told that muscles around the sphincter are weak. Seen by a Urogynecologist (S[place] at [facility] - and was advised to have an implant placed. Wears maxi pads for urinary and fecal incontinence. Has a UTI every time she has sex. Swallowing is a bit better - still chokes some time. Missed appt with Dr Davis and has to reschedule. Tested positive for COVID today - coughing, sneezing, CHAMORRO and throat pains. She has been talking to Rupesh Clancy - swallowing did not change after last EGD and dilation. Per pt - Dr Clancy has ordered a barium swallow and advised to take mesalamine with apple sauce. Planning to start taking Mesalamine in the next few days. Presently on a Budesonide taper - has a BM every 4 to 5 day.. No diarrhea on 9 mg and diarrhea starts when she decreases the dose to 6 mg and 3 mg. Feels gassy and has 1-2 episode of diarrhea LABS IN [facility] : Reviewed IMAGING STUDIES: 12/2021 BARIUM SWALLOW SHOWED: Prominent moderate thickening of cricoesophageal sphincter moderately obstructing thick barium and barium-coated solid food during the exam. There is moderate barium/food retention in the piriform sinuses and mild retention in the valleculae which clears with subsequent 3 or 4 dry swallows and oral administration of water. ? Occasional tertiary peristalsis in the distal esophagus but no obstruction or narrowing. The GE junction is normal. ENDOSCOPIC STUDIES: 07/2021 EGD SHOWED: LARYNX: Laryngeal changes suggestive of LPRD ESOPHAGUS: GE junction at 38 cms. No esophagitis or Weiner's. Biopsies obtained from proximal esophagus to check for EOE. Empiric balloon dilation was performed with 19 mm CRE balloon x 60 seconds STOMACH: Mild gastritis No clear source found for dysphagia - ? achalasia, esophageal spasm due to GERD or EOE Plan:? Schedule a barium swallow for further evaluation. Start Omeprazole 20 mg twice daily Above findings were reviewed with the patient and GERD handouts were given in the discharge area. 11/2020 COLONOSCOPY SHOWED: Two adenomatous polyps removed. Random biopsies were obtained from the right and left colon. Moderate diverticulosis seen in the sigmoid colon Moderate hemorrhoids on retroflexed exam. Plan:? Repeat Colonoscopy interval based on path results - in 3-5 years if polyps are adenomatous and 10 years if polyps are hyperplastic. [facility] Medical History Vitamin B1 deficiency Anemia Major depression, recurrent, chronic Prediabetes Migraine aura without headache Dyslipidemia Diverticulitis Coronary artery calcification seen on CAT scan Colon polyps Colitis [place] (hard of hearing) History of headache Chronic post-traumatic stress disorder (PTSD) Attention-deficit hyperactivity disorder, other type Cognitive and neurobehavioral dysfunction following brain injury Generalized anxiety disorder Major depressive disorder, recurrent episode, in partial remission with mixed features Collagenous colitis Depression PTSD (post-traumatic stress disorder) Anxiety Asthma, allergic Borderline hypertension Elevated cholesterol History of colon polyps Surgical History H/O adenoidectomy H/O thumb surgery History of esophagogastroduodenoscopy (EGD) Hx laparoscopic cholecystectomy (~2005) H/O: History of colonoscopy Family History Father Alcoholism Lung cancer Mother Diabetes Dementia Hypercholesteremia Brother Diabetes insipidus Brother Asthma Social History Household Members: Spouse and Other Household Members Other:: 19 year old son Alcohol intake: never Patient Tobacco Use Status: Never used Tobacco Second Hand Smoke Exposure: No Current occupational status: employed and unemployed [place] [employer] [place] Review of Systems Const All systems reviewed & are unremarkable except as noted in HPI and below Telehealth Telehealth Telehealth Platform: Telephone Location of provider rendering services: practice address Location of patient: address on file Patient Identification confirmed using: Name, : Yes Telehealth method: voice only Patient verbally consented to treatment: Yes Patient verbally consented to billing insurance company: Yes Patient informed of any privacy concerns related to visit: Yes Minutes spent on Phone/Video with Pt.: 18 Assessment & Plan Assessment & Plan (1) Diarrhea: Comment: 55-year-old female PTSD, Diarrhea -colonoscopy, pathology shows collagenous colitis Code(s): R19.7 - Diarrhea, unspecified Category: Medical (2) Collagenous colitis: Comment: Budesonide for the past year, patient lost to follow-up- wean off budesonide Continue previous recommendations Low-fat diet, avoid caffeine and high sugared foods No NSAID Code(s): K52.831 - Collagenous colitis Category: Medical (3) Tubular adenoma of colon: Comment: Repeat asymptomatic colonoscopy 3 years Code(s): D12.6 - Benign neoplasm of colon, unspecified Category: Medical (4) Dysphagia, pharyngoesophageal phase: Comment: 12/2021 Barium swallow showed: Prominent moderate thickening of crico-esophageal sphincter moderately obstructing thick barium and barium-coated solid food during the exam. There is moderate barium/food retention in the piriform sinuses and mild retention in the valleculae which clears with subsequent 3 or 4 dry swallows and oral administration of water. Pt was referred to ENT Code(s): R13.14 - Dysphagia, pharyngoesophageal phase Category: Medical Plan 60 YF followed in GI for dysphagia and collagenous colitis.? 01/02 Barium swallow showed?Prominent moderate thickening of crico-esophageal sphincter moderately obstructing thick barium and barium-coated solid food during the exam. There is moderate barium/food retention in the piriform sinuses and mild retention in the valleculae which clears with subsequent 3 or 4 dry swallows and oral administration of water. Pt was referred to ENT by KATYA Mccabe Treated with Budesonide for the collagenous colitis and notes recurrent diarrhea when she decreases Budesonide to 3 mg a day Has 3 to 5 BMs a day and also overnight (since she does not have a sphincter) Seen by an ano-rectal surgeon years ago - she was told that muscles around the sphincter are weak. Seen by a Urogynecologist (Sasha at [facility]) - and was advised to have an implant placed. Wears maxi pads for urinary and fecal incontinence. Missed appt with Dr Davis and has to reschedule. Pt was advised to stop mesalamine since it was not helpful and take cholestyramine twice daily and continue with budesonide taper 03/22/23 Taking Budesonide 3 mg every other day Unable to decrease to every 3rd day. Takes a 9 mg tab in case of breakthrough symptoms (twice in the last 6 months) Has a BM 2 times a week. She would like to see the ? wetlands technician she saw 10 yrs ago for placement of an implantable device for treatment of fecal incontinence at [facility] ADDENDUM: I contacted the Medical Records Dept at [facility]. They reviewed her records and told me that she was seen in [address] Caryn Mckeon who is a colorectal surgoeon at [facility] Pt advised to call Dr Mckeon's office and schedule a FU appt. Medical records will fax over her records 07/11/25 Recent episode of diarrhea likely related to infectious colitis. Pt advised to taper off Budesonide over 4 weeks If she has recurrent diarrhea - submit stool studies She was advised to schedule an EGD (Dysphagia, hx of Schatzki's ring) and a colonoscopy (FU of colon polyps) Follow-up in 6 months. Orders: Referrals GI Procedure Notification D12.6 - Benign neoplasm of colon, unspecified, K52.831 - Collagenous colitis, R13.14 - Dysphagia, pharyngoesophageal phase, R19.7 - Diarrhea, unspecified Medications: Changed From budesonide DR-ER 3 mg PO DAILY 60 caps 2RF K52.831 - Collagenous colitis To budesonide DR-ER Take 6 mg (2 tab) daily for 7 days Take 3 mg daily x 7 days Take 3 mg every other day for 7 days 3 mg PO DAILY 25 caps 1RF 3 weeks K52.831 - Collagenous colitis Coding Level of Care Code Tele Est Pt Level 2 (74323) Diagnoses Diarrhea R19.7 Collagenous colitis K52.831 Tubular adenoma of colon D12.6 Dysphagia, pharyngoesophageal phase R13.14 Time Spent (min) 18
--- OUTSIDE RECORDS SUMMARY | 2025-07-11 10:06 | XMS_ITS | Clinical Summary ---
Author Organization [facility] Address [address] [place] [id number] Care Team Providers Care Shingler Name Role Phone Christina Marin MD Primary [...] age to complete this topic Care Teams Shingler Relationship Specialty Start Date End Date Christina Marin MD [address] [place] [id number] PCP - General 02/01/23
--- OUTSIDE RECORDS SUMMARY | 2025-07-11 10:06 | XMS_ITS | Data Portability ---
Author Organization [facility] [address] Address [address] [place] [address] Care Team Providers Care Finger Cobbler Name Role Phone NIKHIL HUFF Primary Care Provider [phone] Assessment No assessment recorded. Plan of Treatment Reminders Order Date Submit Date Provider Last Modified By Organization Details Last Modified Time Details Appointments None recorded. Lab SARS CoV 2 (COVID-19) Ag, QL, IA, upper respiratory specimen 2023 024 [email or web address] [address], [address] [place], [address], 4 19:53:58 Referral None recorded. Procedures None recorded. Surgeries None recorded. Imaging XR, tibia + fibula, 2 view 2022 023 [facility], [address] [place] [address], [place], [address], 3 17:03:07 Medication Orders prednisone 20 mg tablet 2023 024 [id number], [address], [id number], 4 19:54:03 azithromyci n 250 mg tablet 2023 024 [id number], [address] [place], [id number], 4 19:54:03 naproxen 500 mg tablet 2022 023 [place] - [id number], [address] [place], [address], 3 14:53:22 omeprazole 20 mg capsule,del ayed release 2022 023 [place] [id number], [address] [place], [address], 3 14:53:20 Patient TargetsNo targets recorded. Patient Instructions Encounter Date Encounter Id Patient Instructions Last Modified By Organization Details Last Modified Time 10/10/2023 [id number] COPD exacerbatio n plan: care instructions [email or web address] Not available 10/10/2023 19:53:56 Reason for Referral None Reported. Results Created Date Observation Date Name Description Value Unit Range Abnormal Flag Note LastModifiedBy Organization Detail LastModifiedTime 10/10/19 24 10/10/2023 SARS CoV 2 (COVI D-19) Ag, QL, IA, upper respi rator y speci men Unknown Analyte negati ve Not Available [facility] [address] [place], [address], 10/10/2023 19:17:04 10/10/19 24 10/10/2023 SARS CoV 2 (COVI D-19) Ag, QL, IA, upper respi rator y speci men Unknown Analyte yes Not Available [facility] [address] [address] [place], [address], 10/10/2023 19:17:04 11/28/19 23 11/27/2022 XR, tibia + fibul a, 2 view No observ ation record ed. [email or web address] [address] [facility] [place], [address], 11/27/2022 17:12:16 Result Notes None recorded. Problems Name Problem SNOMED Code Status Onset Date Resolution Date Notes Provider Name and Address Organization Details Recorded Time Chronic colitis 03035215 Active 2022 NICOLAS hill, [place] - [facility] 3 14:28:38 Allergic asthma 359966360 Active 2022 NICOLAS hill [place] - [facility] 3 14:29:08 Concussion injury of brain 676718930 Active 2022 fell x couple of weeks [...] Name and Address Organization Details Recorded Time 307650 Cipro medicatio n rash Not available Not available 11/27/202201952 3 [facility]AS [facility], [facility] - [facility] [...] Heart rate Respiratory rate Body temperature Systolic And Diastolic Provider Name and Address Organization Details Last Updated DateTime 4 167.64 cm 38.7 kg/m2 645446. 17 g 96 % 96 % 93 /min 18 /min 96.3 [degF] 121/79 mm[Hg] Linda Alvarez PA - [facility] 4 19:16:11 Date Recorded Body height Body mass index (BMI) Body weight Body temperature Oxygen saturation Oxygen saturation in Arterial blood by Pulse oximetry Heart rate Respiratory rate Systolic And Diastolic Provider Name and Address Organization Details Last Updated DateTime 3 167.64 cm 38.7 kg/m2 977887. 17 g 97 [degF] 97 % 97 % 76 /min 16 /min 125/85 mm[Hg] NICOLAS STALLINGS PA - [facility] 3 14:33:05 Social History Question Answer Notes LastModified by Atmail Details LastModified Time Tobacco Smoking Status Never Smoker NICOLAS hill [place] - [facility] 11/27/2022 14:30:35 Have You Had A Flu Shot This Season? No [email or web address] Information not available 10/10/2023 What Was The Date Of Your Most Recent Tobacco Screening? 10/10/2023 [email or web address] Information not available 10/10/2023 Have You Recently Traveled Abroad? No [email or web address] Information not available 11/27/2022 Sex: Unknown Functional Status Question Answer Note LastModified by Atmail Details LastModified Time Do you use any illicit or recreational drugs? No [email or web address] Information not available 11/27/2022 Do you or have you ever used any other forms of tobacco or nicotine? No [email or web address] Information not available 11/27/2022 What is your level of alcohol consumption? None [email or web address] Information not available 11/27/2022 Mental Status None recorded. Family History Relationship Description Onset Age of this Age Resolved Age Notes LastModified by Organization Details LastModified Time Father No current problems or disability [email or web address] Not available 11/27 14:29:41 Mother No current problems or disability [email or web address] Not available 11/27 14:29:41 Medical History No medical history recorded. Gynecological HistoryNo gynecological history recorded. Obstetrics History GPAL:G 0 P 0 0 0 0 Past Encounters Encounter ID Performer Location Encounter Start Date Encounter Closed Date Diagnosis/Indication Diagnosis SNOMED-CT Code Diagnosis ICD10 Code Diagnosis IMO Codes Diagnosis Note [id number] [address] [place] [address] 12/08/2021 15:29:52 12/08/2021 17:54:35 [id number] [facility] [facility] [address] [address] 08/11/2018 08:11:51 08/11/2018 09:08:09 [id number] [address] [place] [address] 10/10/2021 08:40:17 10/10/2021 09:29:07 [id number] Mario Pond DO [facility] [address] [address] 11/27/2022 12:37:16 11/27/2022 15:56:48 Pain of left lower leg 4365073646 64175 M79.662 recommend NSAID w/ PPI x 7dtopical analgesiai cegentle stretching f/u with PCP and referral to Ortho or PT prn no improvemen t Discussed concerning red flags with patient and reasons to follow up in the Emergency Department urgently. Patient advised to follow up as needed for worsening symptoms or no improvemen t. [id number] [facility] Cooper [address] [place] [address] 10/10/2023 18:56:05 10/10/2023 19:56:26 Exacerbation of moderate persistent asthma 026724372 J45.41 Health Concerns Section Related Observation LastModified by Organization Detai ls LastModified Time None Recorded Concern Status LastModified by Organization Details LastModified Time None Recorded Advance Directives Directive None Recorded Payers Insurance Date Sequence Insurance Name Policy Number Policy Garcia Covered Member ID Garcia Member ID Guarantor Name 10/11/2023 1 [place]MO [facility] (HMO) Jaycee Velásquez [id number] Jaycee Velásquez 10/10/2023 FEE FOR SERVICE Jaycee Velásquez 10/10/2023 1 [employer] [place]) [id number] Jaycee Velásquez [id number] Jaycee Didier 10/10/2023 1 [employer] [id number] Jaycee Didier [id number] Jaycee Didier Notes Date Note Type Note Provider Name and Address Organization Details Recorded Time 11/28/19 23 text/htm l Lower Leg UCReported by [email or web address] y o c/o pain in L hill x 1 d no traumarecently started walking more no otc meds, no iceno bruising or rash\no weaknessno numbness/tinglingROS as noted in the HPI Mario Pond DO [address] [place], [address], [place] - [facility] 11/27/2022 15:53:15 10/10/19 24 text/htm l CoughReported by PatientHPIFor quality, patient reportsharshandproductive coughbut reportsintermittent. For associated symptoms, patient reportswheezingbut reportsno fever,no chills, andno chest pain. For source of patient information, patient reportsinformation obtained from patientandpatient arrived at urgent care ambulatory. For severity, patient reportsmoderate(not really improving). For duration, patient reports6 days. For timing, patient reportsgradual. KATYA Gandhi [address] [place], [address], [place] [employer] [facility] 10/10/2023 19:54:12 OBGyn Episode No OBEpisode recorded.
== END 2025-07-11 10:23 | disposition home or self-care (01) ==
LOC: HO.HGI 09:03
PROVIDERS: PCP Internal Medicine; Visit Provider Internal Medicine Gastroenterology
DX: R19.7 Diarrhea, unspecified (principal); K52.831 Collagenous colitis; D12.6 Benign neoplasm of colon, unspecified; R13.14 Dysphagia, pharyngoesophageal phase
CPT/HCPCS: 99212

== ENCOUNTER 2025-07-12 11:33 | Outpatient (REF) | payer OTHER, SELFPAY ==
[2025-07-12 18:30] LABS: Total Protein Urine Random < 7 mg/dL (<12)
[2025-07-12 20:06] LABS: CDiff Gene PCR NEGATIVE (Negative)
[2025-07-13 10:01] LABS: E. coli EAEC Detected (Not Detect.); E. coli EPEC Not Detected (Not Detect.); E. coli ETEC Not Detected (Not Detect.); E. coli STEC Not Detected (Not Detect.); Shigella sp./EIEC Not Detected (Not Detect.)
== END 2025-07-12 11:34 | disposition home or self-care (01) ==
LOC: HO.HKASLDS 11:33
PROVIDERS: Internal Medicine Gastroenterology; Nurse Practitioner Family; PCP Internal Medicine; Visit Provider Psychiatry & Neurology Psychiatry
DX: F41.1 Generalized anxiety disorder (principal); F90.8 Attention-deficit hyperactivity disorder, other type; F43.12 Post-traumatic stress disorder, chronic; F32.5 Major depressive disorder, single episode, in full remission; N28.9 Disorder of kidney and ureter, unspecified; R03.0 Elevated blood-pressure reading, without diagnosis of hypertension; R19.7 Diarrhea, unspecified; Z79.899 Other long term (current) drug therapy
CPT/HCPCS: 82570; 82945; 84156; 87493; 87507

== ENCOUNTER 2025-07-12 11:33 | Outpatient (AMB) | payer OTHER, SELFPAY ==
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
--- OUTSIDE RECORDS SUMMARY | 2025-07-12 14:31 | XMS_ITS | Clinical Summary ---
Author Organization [facility] Address [id number] [place] [id number] Care Team Providers Care Revenue Investigator Name Role Phone Christina Marin MD Primary [...] age to complete this topic Care Teams Revenue Investigator Relationship Specialty Start Date End Date Christina Marin MD [address] [place] [id number] PCP - General 02/01/23
== END 2025-07-12 14:17 | disposition home or self-care (01) ==
LOC: HO.HOP 11:33
PROVIDERS: PCP Internal Medicine; Visit Provider Psychiatry & Neurology Psychiatry
DX: F41.1 Generalized anxiety disorder (principal); F90.8 Attention-deficit hyperactivity disorder, other type; F43.12 Post-traumatic stress disorder, chronic; F32.5 Major depressive disorder, single episode, in full remission
CPT/HCPCS: 90833; 99213

== ENCOUNTER 2025-09-10 11:16 | Outpatient (AMB) | payer OTHER, SELFPAY ==
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
--- OUTSIDE RECORDS SUMMARY | 2025-09-10 13:13 | XMS_ITS | Clinical Summary ---
Author Organization [facility] Address [id number] [place] [id number] Care Team Providers Care Order Checker Packer Processer Name Role Phone Christina Marin MD Primary [...] on file Sexual Orientation Not on file Last Filed Vital Signs Vital Sign Reading [...] Depression Screening 09/13/2024 COVID-19 Vaccine (1 - 2024-2 6 season) 2025 Influenza Vaccine (#1) 2025 HIB [...] age to complete this topic Care Teams Order Checker Packer Processer Relationship Specialty Start Date End Date Christina Marin MD [address] [place] [id number] PCP - General 02/01/23
== END 2025-09-10 15:15 | disposition home or self-care (01) ==
LOC: HO.HOP 11:16
PROVIDERS: PCP Internal Medicine; Visit Provider Psychiatry & Neurology Psychiatry
DX: F41.1 Generalized anxiety disorder (principal); F90.8 Attention-deficit hyperactivity disorder, other type; F43.12 Post-traumatic stress disorder, chronic; N28.9 Disorder of kidney and ureter, unspecified
CPT/HCPCS: 99214